=== PATIENT | female | born 1935 | race Caucasian/White ===

== ENCOUNTER 2016-05-03 07:31 | Inpatient (IN) | payer MEDICARE ==
--- NOTE | 2016-04-23 03:53 | HP ---
HISTORY AND PHYSICAL EXAM: DATE OF ADMISSION: 05/03/16 CHIEF COMPLAINT: Both legs are causing pain from the hips down. HISTORY OF PRESENT ILLNESS: This 81-year-old white female started experiencing bilateral leg pain dating back to mid February 2016. She has bilateral L4-5 lumbar radiculopathy which appears to be two separate processes. MRI, 03/29/16 , showed a disk fragment in the foramen on the right and a synovial cyst arising from the facet joint on the left, both of which compromised the descending nerve root. Her symptoms are consistent with MRI findings with radiculopathy starting in her hip area bilaterally and radiating down to her calves bilaterally. The patient finds that standing and walking are particularly painful. She is scheduled with Dr. Mc at [facility] for a decompressive lumbar laminectomy on 05/03/16. PAST MEDICAL HISTORY: The patient is under the care of Dr. Emery Francisco. She has a history of hypertension; diabetes, which is well controlled with metformin; restless legs syndrome; rheumatoid arthritis, treated with a combination of methotrexate and IV monthly infusions of Actemra. She also has GE reflux. PAST SURGICAL HISTORY: Includes right diskectomy for disk fragment, L4-5, in 2009; laparoscopic cholecystectomy; left knee replacement; left carpal tunnel release; tonsillectomy in childhood. CURRENT MEDICATIONS: 1. Diovan HCT 320/12.5 mg daily. 2. Terazosin 10 mg q.h.s. 3. Metformin ER 500 mg 2 tablets q.p.m. 4. Mirapex 0.25 mg 2 tablets q.p.m. 5. Pantoprazole 40 mg daily. 6. Oxybutynin 5 mg daily. 7. Ranitidine 300 mg 4 times a week. 8. Methotrexate 2.5 mg 4 tablets per week, which is currently on hold in preparation for her surgery. 9. Actemra infusion q. month, last infusion was April 04, on hold until after she heals from surgery. 10. Leucovorin 5 mg 8 hours after methotrexate, also on hold. 11. Aspirin 81 mg daily. 12. Centrum Silver daily. 13. Calcium 500 with D daily. 14. Vitamin C 1000 mg daily. 15. For pain control, she been using tramadol 50 mg once a day and Percocet 5/ 325 one tablet twice daily. ALLERGIES: NAPROSYN has caused a rash in the past. She does have sensitivity to gabapentin which caused agitation. BETA BLOCKERS caused fatigue. TARUN INHIBITORS have caused a cough. FAMILY HISTORY: Father - hypertension, CVA at age 52. Mother - Parkinson's diagnosed in her 60s, had dementia late in life, and at age 75. Maternal grandmother - breast cancer diagnosed at age 82, at age 93. Other family history is unremarkable. SOCIAL HISTORY: The patient lives in [facility]. She does live alone, but has 2 daughters and a son-in-law who live nearby that are very helpful. She has never used tobacco or alcohol. She continues to be fairly physically active despite her rheumatoid arthritis. REVIEW OF SYSTEMS: She wears bifocal glasses, bilateral hearing aids. Review of systems is negative to detailed questioning except that she does have some urinary frequency and does get up at night 2 times to urinate. Has some minimal incontinence. She denies any dyspnea, cough, chest pain, palpitations, or edema symptoms. PHYSICAL EXAMINATION GENERAL: This 81-year-old white female is alert, pleasant, and cooperative. VITAL SIGNS: Height 5 feet 2 inches, weight stable at 184, blood pressure supine 140/78, pulse 84. HEENT: Ears not examined. Hearing aids in place. Eyes: Pupils round, equal, react to light. Mouth: She has a full upper denture plate in place. No teeth on the bottom jaw. Tongue in the midline. Pharynx is clear. NECK: Fair range of motion. No adenopathy. No tenderness. Thyroid benign. BACK: Kyphosis present. No tenderness of the spine or CVA areas. LUNGS: Clear. HEART: Rhythm is regular. Apical pulse 84 beats per minute. EKG shows normal sinus rhythm with 2 PACs, within normal limits. ABDOMEN: Markedly obese. Active bowel sounds. Abdomen is soft, nontender. No obvious masses or organomegaly; however, this exam was difficult related to the patient's obese abdomen. NEUROVASCULAR: The patient is alert and oriented x3. She ambulates slowly with the assistance of a cane or walker. She does have minimal difficulty getting up on the exam table and needed assistance. Strengths of her upper and lower extremities are normal and symmetrical. The patient complains of bilateral leg pain with lumbar extension and side bending in either direction. SKIN: Warm, dry, pale, pink. No worrisome lesions noted. She does have an abrasion on her right elbow. No cellulitis. Skin of her lower leg was intact. No cyanosis. No edema. IMPRESSION: The patient is medically stable and cleared for her upcoming decompressive lumbar lamine[place] with Dr. Mc [place] [facility] [place]. IDA PIERRE NP CC: Dr. Mc; Same-Day Preadmission Testing at the Hospital * [id number]/[facility] #: [id number] [facility]
[~2016-05-03 07:31] MED LIST: Buffered Lidocaine 1% SYR 3ML* 3 ML/SYR SYRINGE INTRADERM ONE; Sodium Citrate/Citric Acid* 15 ML UDC PO ONE
[2016-05-03] MEDS ORDERED: ceFAZolin 2 GM PREMIX (*) 2 GM/50 ML BAG IVPB ONE (08:03)
[2016-05-03] MEDS ORDERED: Sodium Citrate/Citric Acid* 15 ML UDC ONE (08:03)
[2016-05-03] MEDS ORDERED: Bacitracin IV* 50,000 UNITS INJ ONE (09:24)
[2016-05-03] MEDS ORDERED: Lidocain 1% EPI 1:100,000 * 30 ML MDV ONE (09:24)
[2016-05-03] MEDS ORDERED: Thrombin 5,000 UNITS* 1 APPLIC KIT - topical use - TOPICAL ONE (09:24)
[2016-05-03] MEDS ORDERED: Propofol* 10 MG/ML 20 ML BTL IV PUSH ONE ×2 (09:44→11:41)
[2016-05-03] MEDS ORDERED: Rocuronium* 10 MG/ML VIAL ONE ×2 (09:44→10:59)
[2016-05-03] MEDS ORDERED: Lidocaine 2% PF * 5 ML VIAL ONE (09:44)
[2016-05-03] MEDS ORDERED: fentaNYL* 50 MCG/ML 2 ML VIAL (100 MCG VIAL) ONE ×5 (09:46→13:18)
[2016-05-03] MEDS ORDERED: DiMENhydriNATE IV* 50 MG/ML VIAL IV PUSH PRN (10:42)
[2016-05-03] MEDS ORDERED: Midazolam* 1 MG/ML 2 ML VIAL (2 MG) ONE (10:59)
[2016-05-03] MEDS ORDERED: Glycopyrrolate IV* 0.2 MG/ML 1 ML VIAL ONE (11:24)
[2016-05-03] MEDS ORDERED: Neostigmine Methylsulfate* 2 MG/2 ML SYRINGE ONE (11:24)
[2016-05-03] MEDS ORDERED: Ondansetron INJ* 2 MG/ML VIAL IV PRN (11:46)
[2016-05-03] MEDS ORDERED: Acetaminophen TAB* 325 MG PO PRN (11:46)
[2016-05-03] MEDS ORDERED: Famotidine TAB* 20 MG PO PRN (12:00)
[2016-05-03] MEDS: fentaNYL* 50 MCG/ML 2 ML VIAL (100 MCG VIAL) IV PRN ×5 (12:24→13:19)
--- NOTE | 2016-05-03 13:04 | RAD ---
Indication: Decompressive lumbar laminectomy. 2 lateral views of the lumbar spine taken in the operating room demonstrates localization of the L5 vertebra. IMPRESSION: Localization of the L5 vertebra.
[2016-05-03] MEDS: Morphine INJ* 4 MG/ML 1 ML CARPUJECT IV PRN ×3 (14:07→23:27)
[2016-05-03] MEDS: HYDROcodone/ACETAMIN 5-325 MG* 1 TAB PO PRN ×2 (15:57→22:13)
[2016-05-03] MEDS: Insulin LISPRO* 1 UNITS UNIT SUBCUT SCH ×2 (17:55→21:51)
[2016-05-03] MEDS: Terazosin CAP* 5 MG PO SCH (20:29)
[2016-05-03] MEDS ORDERED: Pramipexole TAB* 0.5 MG PO SCH (21:00)
[2016-05-04] MEDS: HYDROcodone/ACETAMIN 5-325 MG* 1 TAB PO PRN ×5 (03:47→20:30)
--- NOTE | 2016-05-04 07:44 | PN ---
Progress Note - Progress Note SOAP: Subjective: []POD # 1 C/O incisional pain Mcdowell in place Has not ambulated Objective: []Neuro intact Moderate wound drainage Assessment: []Stable post op Plan: []D/C mcdowell Increase activity
[2016-05-04] MEDS: Valsartan TAB* 160 MG PO SCH (08:08)
[2016-05-04] MEDS: Aspirin EC Low Dose* 81 MG TAB.EC PO SCH (08:08)
[2016-05-04] MEDS: Omeprazole CAP* 20 MG PO SCH (08:08)
[2016-05-04] MEDS: Hydrochlorothiazide TAB* 25 MG PO SCH (08:09)
[2016-05-04] MEDS: Oxybutynin TAB* 5 MG PO SCH (08:09)
[2016-05-04] MEDS: metFORMIN* 500 MG TAB PO SCH ×2 (08:15→20:31)
[2016-05-04] MEDS: Insulin LISPRO* 1 UNITS UNIT SUBCUT SCH ×4 (09:34→20:47)
[2016-05-04] MEDS ORDERED: Insulin LISPRO* 1 UNITS UNIT SUBCUT ONE (14:18)
[2016-05-04] MEDS: Terazosin CAP* 5 MG PO SCH (20:32)
[2016-05-04] MEDS: Pramipexole TAB* 0.5 MG PO SCH (20:45)
[2016-05-04] MEDS: Magnesium Hydroxide LIQ* 30 ML UDC PO PRN (20:46)
[2016-05-04] MEDS ORDERED: Pramipexole TAB* 0.125 MG PO SCH (21:00)
[2016-05-04] MEDS: Morphine INJ* 4 MG/ML 1 ML CARPUJECT IV PRN (22:48)
[2016-05-05] MEDS: HYDROcodone/ACETAMIN 5-325 MG* 1 TAB PO PRN ×3 (01:35→14:42)
[2016-05-05] MEDS: metFORMIN* 500 MG TAB PO SCH ×2 (08:22→21:54)
[2016-05-05] MEDS: Oxybutynin TAB* 5 MG PO SCH (08:23)
[2016-05-05] MEDS: Hydrochlorothiazide TAB* 25 MG PO SCH (08:23)
[2016-05-05] MEDS: Valsartan TAB* 160 MG PO SCH (08:23)
[2016-05-05] MEDS: Omeprazole CAP* 20 MG PO SCH (08:23)
[2016-05-05] MEDS: Aspirin EC Low Dose* 81 MG TAB.EC PO SCH (08:23)
[2016-05-05] MEDS: Insulin LISPRO* 1 UNITS UNIT SUBCUT SCH ×4 (08:46→21:53)
--- NOTE | 2016-05-05 08:53 | PN ---
Progress Note - Progress Note SOAP: Subjective: []Up in chair Still has marked incisional pain Moderate drain output Objective: []Motor normal Drain output 170 Assessment: []Stable Plan: []Still needs drain Will continue to monitor drain output
[2016-05-05] MEDS: Magnesium Hydroxide LIQ* 30 ML UDC PO PRN (14:42)
[2016-05-05] MEDS: Terazosin CAP* 5 MG PO SCH (21:54)
[2016-05-05] MEDS: Pramipexole TAB* 0.5 MG PO SCH (21:55)
[2016-05-06] MEDS: HYDROcodone/ACETAMIN 5-325 MG* 1 TAB PO PRN ×4 (01:57→18:18)
[2016-05-06] MEDS: Insulin LISPRO* 1 UNITS UNIT SUBCUT SCH ×4 (09:11→21:03)
[2016-05-06] MEDS: Hydrochlorothiazide TAB* 25 MG PO SCH (09:12)
[2016-05-06] MEDS: metFORMIN* 500 MG TAB PO SCH ×2 (09:12→21:03)
[2016-05-06] MEDS: Aspirin EC Low Dose* 81 MG TAB.EC PO SCH (09:12)
[2016-05-06] MEDS: Valsartan TAB* 160 MG PO SCH (09:12)
[2016-05-06] MEDS: Magnesium Hydroxide LIQ* 30 ML UDC PO PRN (09:12)
[2016-05-06] MEDS: Omeprazole CAP* 20 MG PO SCH (09:12)
[2016-05-06] MEDS: Oxybutynin TAB* 5 MG PO SCH (09:12)
[2016-05-06] MEDS ORDERED: Docusate CAP* 100 MG PO PRN (10:03)
[2016-05-06] MEDS ORDERED: Bisacodyl SUPP* 10 MG SUPP PR ONE (10:04)
[2016-05-06] MEDS: Terazosin CAP* 5 MG PO SCH (21:02)
[2016-05-06] MEDS: Pramipexole TAB* 0.5 MG PO SCH (21:03)
[2016-05-07] MEDS: HYDROcodone/ACETAMIN 5-325 MG* 1 TAB PO PRN ×4 (00:05→15:12)
--- NOTE | 2016-05-07 07:59 | PN ---
Progress Note - Progress Note SOAP: Subjective: [This is an 81 year old female s/p decompressive lumbar laminectomy L2-3, L3-4, L4-5 and L5-S1, POD#4. She continues to complain of some incisional back pain. She is ambulating occasionally and reports being slightly unsteady. She uses a walker. She is eating and drinking without difficulty. Denies headache, nausea, vomiting and lower extremity pain. ] Objective: [ Vital Signs: Temp Pulse Resp BP Pulse Ox 98.4 F 81 16 123/55 97 05/07/16 07:32 05/07/16 07:32 05/07/16 07:32 05/07/16 07:32 05/07/16 07:32 General: Alert and oriented. No distress. Neuro: Motor and sensory intact. Incision: Intact with marilin. Ecchymosis wrapping around left side of low back. Extremities: Full ROM. ] Assessment: [Satisfactory post-op. ] Plan: [1. Discharge home today. 2. Discharge instructions including wound care and activity level were discussed with the patient ]
--- NOTE | 2016-05-07 09:32 | OP ---
DATE OF OPERATION: 05/03/16 - ROOM #336 DATE OF : 31 PRIMARY SURGEON: Yossi Mc MD. LIFE INSURANCE SALESPERSON: NAOMI Gann. ANESTHESIOLOGIST: Reggie Padilla DO ANESTHESIA: General. PRE-OP DIAGNOSIS: Lumbar spinal stenosis at L2-L3, L3-L4, L4-L5, and L5-S1. POST-OP DIAGNOSIS: Lumbar spinal stenosis at L2-L3, L3-L4, L4-L5, and L5-S1. OPERATIVE PROCEDURE: Decompressive lumbar laminectomy at L2-L3, L3-L4, L4-L5, L5- S1. DESCRIPTION OF OPERATION: After satisfactory general anesthesia was obtained, the patient was placed on the operating table in a prone position with the chest supported on the Dangelo frame and the back slightly flexed. The lumbar region was then clipped, prepped, and draped in a sterile manner for a lumbar laminectomy and a skin incision outlined from L2 to the sacrum. This incision was infiltrated with 1% Xylocaine with epinephrine, after which it was turned down sharply to the level of the lumbar fascia. The fascia was divided along the spinous processes from L2 to the sacrum and the paraspinal musculature was stripped away from these posterior elements using the periosteal elevator and monopolar cautery. The decompression was began at the L5-S1 level by removing the L5 spinous process with a combination of the Ricky supply crib attendant and Leksell rongeur. The inferior aspect of L5 was then thinned out and a decompression carried superiorly until the attachment of the ligamentum flavum was taken down. Ligamentum flavum was then removed along with thickened facet complex, until both S1 nerve roots were notably free in their course. Attention was then directed to the L4-5 level where similar decompression was carried out. The pathology at this level was somewhat more pronounced with even greater thickening of the ligament and more hypertrophy of the facet complex. At the L4- L5 level, the decompression was carried inferiorly until both L5 nerve roots were noted to be free in their course. There was noted to be scar tissue at L4- 5 from a previous surgery. The L3-4 level was then decompressed by removing the spinal processes of L3 and L4. The inferior aspect of L3 was thinned out and a decompression carried superiorly until the attachment of the ligamentum flavum was taken down. Ligamentum flavum was then removed as well as thickened hypertrophy facet tissue. This was carried inferiorly until both L4 nerve roots were noted to be free in their course. At the L2-3 level, the spinous process of L2 was removed and a decompression carried out until both L3 nerve roots were noted to be free in their course. Hemostasis was obtained with temporary Gelfoam at each level. After assuring adequate hemostasis, Gelfoam was placed into the laminectomy defects. A drain was placed in the epidural space and tunneled out toward the left side. The fascia was then reapproximated with 0 Vicryl suture. The subcutaneous tissue was closed with 3- 0 Vicryl suture and the skin closed with skin clips. The estimated blood loss was 100 cc and final sponge, padding, and needle counts were correct. The patient was taken to the recovery room, extubated, and in stable condition. [id number]/[facility] #: [id number] MTDRolo
[2016-05-07] MEDS: Valsartan TAB* 160 MG PO SCH (09:41)
[2016-05-07] MEDS: Aspirin EC Low Dose* 81 MG TAB.EC PO SCH (09:42)
[2016-05-07] MEDS: Omeprazole CAP* 20 MG PO SCH (09:42)
[2016-05-07] MEDS: Hydrochlorothiazide TAB* 25 MG PO SCH (09:43)
[2016-05-07] MEDS: metFORMIN* 500 MG TAB PO SCH (09:44)
[2016-05-07] MEDS: Oxybutynin TAB* 5 MG PO SCH (09:44)
[2016-05-07] MEDS: Insulin LISPRO* 1 UNITS UNIT SUBCUT SCH ×2 (09:45→12:34)
[2016-05-07 16:19] VITALS: BP 118/56
--- NOTE | 2016-05-18 02:43 | DS ---
DISCHARGE SUMMARY: DATE OF ADMISSION: 05/03/16 DATE OF DISCHARGE: 05/07/16 DISCHARGE DIAGNOSES: 1. Lumbar spinal stenosis. 2. Hypertension. 3. Rheumatoid arthritis. HOSPITAL COURSE: This 81-year-old female was seen in office with signs and symptoms of a lumbar spinal stenosis for the previous several years. She has failed to improve over these several years with conservative treatment. In 2009 , she underwent lumbar diskectomy at L4-5 on the right with Dr. Faust. She experienced good improvement in symptoms although after sometime, she began experiencing symptoms related to the spinal stenosis. She was admitted at this time for elective surgical intervention. On the day of admission, she was taken to surgery where under general anesthesia, a decompressive lumbar laminectomy at L2-3, L3-4, L4-5 and L5-S1 operation was carried out. Postoperatively, she was feeling well. Pain was initially controlled with IV and p.o. pain medication. As postoperative days progressed, she was transitioned to only p.o. pain medications and continued to have adequate pain control. She is ambulating with assistance. She is eating, drinking and voiding without difficulty. On the 4th postoperative day, she was discharged home to the care of her family. DISCHARGE INSTRUCTIONS: Including wound care and activity level were discussed with patient and provided. She will be seen in office in approximately 7 to 10 days for followup and staple removal. DISCHARGE MEDICATIONS: Okarche 5/325 mg 2 tabs by mouth every 4 hours as needed for pain. NAOMI ROLLINS [id number]/[facility] #: [id number] ALAYNA
== END 2016-05-07 16:28 | disposition home or self-care (01) | DRG 517 ==
LOC: OR 07:31 → SSU 07:37 → OBSVTOIN 05-04 07:37
PROVIDERS: ADMIT Neurological Surgery; ATTEND Neurological Surgery
PROC: 01NB0ZZ Release Lumbar Nerve, Open Approach (ICD-10-PCS; principal; 2016-05-03 09:00)
DX: M48.06 Spinal stenosis, lumbar region (principal); E11.9 Type 2 diabetes mellitus without complications; M06.9 Rheumatoid arthritis, unspecified; I10 Essential (primary) hypertension; M48.07 Spinal stenosis, lumbosacral region; M54.16 Radiculopathy, lumbar region; G25.81 Restless legs syndrome; K21.9 Gastro-esophageal reflux disease without esophagitis; Z96.652 Presence of left artificial knee joint; Z79.84 Long term (current) use of oral hypoglycemic drugs; Z79.82 Long term (current) use of aspirin; Z79.891 Long term (current) use of opiate analgesic; Z79.899 Other long term (current) drug therapy; Z91.09 Other allergy status, other than to drugs and biological substances; Z82.49 Family history of ischemic heart disease and other diseases of the circulatory system; Z82.3 Family history of stroke; Z80.3 Family history of malignant neoplasm of breast
CPT/HCPCS: 72100; 94760; A9270-GY; G8978-GP-CK; G8978-GP-CL; G8978-GP-CN; G8979-GP-CI; G8979-GP-CK; G8980-GP-CK; J0690; J2250; J2270; J2704; J3010

== ENCOUNTER 2017-03-22 22:50 | Inpatient (IN) | payer MEDICARE ==
[2017-03-22 23:53] LABS: ABS Basophils 0 10^3/ul (0-0.2); ABS Eosinophils 0 10^3/ul (0-0.6); ABS Lymphocytes 1.1 10^3/ul (1.0-4.8); ABS Monocytes 0.8 10^3/ul (0-0.8); ABS Neutrophils 4.8 10^3/ul (1.5-7.7); ABS Nucleated RBC 0 10^3/ul; Eosinophil % 0.6 % (0-6); Hematocrit 34 % (35-47); Hemoglobin 11.9 g/dl (12.0-16.0); Lymphocyte % 16.3 % (25-47); Mean Corpuscular HGB Conc 35 g/dl (31-36); Mean Corpuscular Hemoglobin 34 pg (27-31); Mean Corpuscular Volume 96 fL (80-97); Mean Platelet Volume 7 um3 (7.4-10.4); Nucleated Red Blood Cells % 0.1; Platelet Count 276 10^3/ul (150-450); Red Blood Count 3.54 10^6/ul (4.0-5.4); Red Cell Distribution Width 14 % (10.5-15); White Blood Count 6.7 10^3/ul (3.5-10.8)
[2017-03-23 01:00] LABS: EGFR Non-African American 77.4 (>60)
[2017-03-23] MEDS ORDERED: Potassium Chloride LIQUID* 20 MEQ PACKET PO ONE (01:22)
[2017-03-23] MEDS ORDERED: NS 0.9% 1000 ML* 1,000 ML IV SCH (02:15)
[2017-03-23] MEDS ORDERED: Dextrose 50% Syringe 50 ML* 25 GM/50 ML SYRINGE IV PUSH PRN (02:26)
[2017-03-23] MEDS ORDERED: ceFAZolin 500 MG VIAL(*) 500 MG in NS 0.9% 50 ML* 50 ML IVPB SCH (03:30)
--- NOTE | 2017-03-23 04:25 | HP ---
CC: Dr. Wade * HISTORY AND PHYSICAL: DATE OF ADMISSION: 03/23/17 PRIMARY CARE PROVIDER: Dr. Wade CHIEF COMPLAINT: Increased confusion. HISTORY OF PRESENT ILLNESS: Ms. Avery is an 81-year-old female who has a history of type 2 diabetes, GERD, restless legs, hypertension, and rheumatoid arthritis, who presents to the emergency room with complaints of increased weakness. The patient's daughter provides the bulk of the history. The patient is very hard of hearing and confused, not really able to answer my questions. Of note, the patient saw Dr. Wade on 03/20/17 for complaints of abdominal pain. At that time, she was diagnosed with urinary tract infection and was started on Macrobid. Additionally at that appointment, there was concern that the patient's memory loss has became worse. On the day prior to this admission, the patient's daughter states that her mom was having a difficult time with even knowing how to use the phone or the remote control. She was reportedly unable to make any decisions. She was calling her daughter ' yimi' and additionally what sounds to be hallucinating. The patient appears to have been taking her medications inappropriately as daughter states that her pill box is a "mess." PAST MEDICAL HISTORY: 1. Hypertension. 2. Type 2 diabetes. 3. RLS. 4. RA. 5. Spinal stenosis. PAST SURGICAL HISTORY: 1. Decompressive lumbar laminectomy. 2. Tonsillectomy. 3. Diskectomy, L4-5. 4. Laparoscopic cholecystectomy. 5. Left total knee replacement. 6. Left carpal tunnel release. MEDICATIONS: 1. Metformin 500 mg p.o. daily. 2. Actemra IV monthly. 3. Aspirin 81 mg p.o. daily. 4. Centrum Silver 1 tab p.o. daily. 5. Calcium 1 chew p.o. twice daily. 6. Vitamin C 1000 mg p.o. daily. 7. Methotrexate 2.5 mg 4 tabs p.o. weekly. 8. Leucovorin 5 mg p.o. 1 day weekly after methotrexate dose. 9. Terazosin 10 mg p.o. daily. 10. Ranitidine 300 mg p.o. q.h.s. 11. Oxybutynin ER 5 mg p.o. daily. 12. Percocet 5/325 one tab p.o. q.6 hours p.r.n. pain. 13. Carbidopa/levodopa 25/100 three tabs p.o. daily. ALLERGIES: NAPROSYN, GABAPENTIN, BETA BLOCKERS, and TARUN INHIBITORS. FAMILY HISTORY: The patient's mom had Parkinson and dementia. Dad had CVA. SOCIAL HISTORY: The patient is a nonsmoker. She does not drink. Her daughter is her healthcare proxy. The patient is . She was a homemaker. She had 4 children. REVIEW OF SYSTEMS: Unobtainable as the patient is too confused. PHYSICAL EXAMINATION GENERAL: The patient is a well-developed, elderly female, lying in the stretcher, sleeping, awakens to voice, and is in no acute distress. VITAL SIGNS: Blood pressure 154/65, pulse 88, respirations 16, temp 97.9, O2 sat 99% on room air. HEENT: Pupils are approximately 1 to 2 mm. Extraocular muscles intact. Oropharynx is clear. Oral mucosa is slightly dry. The patient wears upper dentures. There is no submandibular cervical or supraclavicular adenopathy. Thyroid is not enlarged. No thyroid nodules noted. CARDIAC: Normal S1, S2. Regular rate and rhythm. I do not appreciate any murmurs. There is trace ankle edema bilaterally. ABDOMEN: Bowel sounds are present. Abdomen is soft, nontender, and nondistended. MUSCULOSKELETAL: There is no cyanosis or clubbing of the digits. There is full active range of motion of all 4 extremities. SKIN: Warm and dry. There are no rashes. NEUROLOGIC: Cranial nerves II through XII are grossly intact. Sensation is intact to light touch throughout. Strength is 5/5 and symmetric to both upper and lower extremities bilaterally. PSYCH: The patient is alert. She is confused. DIAGNOSTIC STUDIES/LAB DATA: WBC 6.7, hemoglobin 11.9, hematocrit 34, platelets 276. Sodium 120, potassium 3.3, chloride 83, CO2 24, BUN 11, creatinine 0.72, glucose 133. Calcium 9.8. Bilirubin 1.0, AST 28, ALT 30, alk phos 45. Albumin 4.5. TSH 1.7. Chest x-ray to my interpretation appears clear. ASSESSMENT AND PLAN: Ms. Avery is an 81-year-old female who has a history of possibly mildly cognitive impairment though lives alone ordinarily, type 2 diabetes, rheumatoid arthritis and restless legs, who presents to the emergency room with complaints of increased confusion and was found to be hyponatremic. 1. Confusion. The etiology of this is likely multifactorial from hyponatremia and likely the urinary tract infection that was diagnosed on 03/20/17. Treatment will be initiated for both of these conditions and will monitor for improvement of her mental status. We will also obtain a CT of the brain as her confusion is dramatically worse than usual. 2. Hyponatremia. The etiology of the hyponatremia is not clear. On 03/20/17, the patient had blood work that revealed her sodium was low at 120. In November of 2016, her sodium was slightly low at 131. In reviewing her medications, none of these stand out as the cause of the hyponatremia. We will send a urine sodium and urine osm. For now, we will start normal saline at 100 mL per hour. Repeat BMP will be obtained later this morning. 3. Urinary tract infection. The patient grew toussaint-sensitive E. coli. The patient was started on nitrofurantoin. I will change the patient from nitrofurantoin to cefazolin 500 mg IV q.6 hours. A repeat urinalysis has been sent from the emergency room. 4. Type 2 diabetes. The patient will be maintained on her usual dose of metformin. Glucoses will be ordered a.c. and h.s. with lispro sliding scale for coverage. 5. Rheumatoid arthritis. The patient's methotrexate and leucovorin will be held for now. 6. Restless legs. We will continue carbidopa/levodopa. 7. Chronic back pain. Continue p.r.n. Clifton. 8. DVT prophylaxis. According to the Adult Thrombosis Prophylaxis Risk Factor Assessment Guide, the patient has a total risk factor score of 4 making her high risk. She will be placed on heparin 5000 units subcutaneous q.8 hours. 5. Code status is DNR. TIME SPENT: 65 minutes were spent on admitting this patient. [id number]/[facility] #: [id number] ALAYNA
[2017-03-23] MEDS: ceFAZolin 500 MG VIAL(*) 500 MG in D5W 50 ML BAG* 50 ML IVPB SCH ×3 (04:36→20:29)
[2017-03-23] MEDS: Heparin VIAL(*) 5000 UNITS/ML VIAL (FIVE THOUSAND) SUBCUT SCH ×3 (06:14→22:10)
[2017-03-23] MEDS ORDERED: oxyCODONE/Acetamin 5/325 MG* TAB PO PRN (07:29)
[2017-03-23 08:09] LABS: Hematocrit 33 % (35-47); Hemoglobin 11.7 g/dl (12.0-16.0); Mean Corpuscular HGB Conc 36 g/dl (31-36); Mean Corpuscular Hemoglobin 34 pg (27-31); Mean Corpuscular Volume 96 fL (80-97); Mean Platelet Volume 7 um3 (7.4-10.4); Platelet Count 273 10^3/ul (150-450); Red Blood Count 3.42 10^6/ul (4.0-5.4); Red Cell Distribution Width 14 % (10.5-15); White Blood Count 5.3 10^3/ul (3.5-10.8)
[2017-03-23 08:20] LABS: EGFR Non-African American 82.6 (>60)
--- NOTE | 2017-03-23 08:40 | RAD ---
Indication: Hyponatremia. 2 views of the chest including dual energy PA views demonstrate no mediastinal shift. Heart is of normal size and configuration. Lung rachel demonstrate suggestion of infiltrate in the apices. Follow-up exam or PA and lateral view of the chest from the patient still is suggested. Findings are new since April 14, 2007. IMPRESSION: Possible biapical infiltrates. PA and lateral view of the chest is suggested.
[2017-03-23] MEDS ORDERED: Carbidopa/Levodop 25/100 MG TAB(*) PO SCH (09:00)
[2017-03-23] MEDS: Insulin LISPRO* 1 UNITS UNIT SUBCUT SCH ×4 (09:38→21:03)
[2017-03-23] MEDS: Aspirin EC Low Dose* 81 MG TAB.EC PO SCH (09:39)
[2017-03-23] MEDS: metFORMIN* 500 MG TAB PO SCH (09:39)
--- NOTE | 2017-03-23 09:51 | RAD ---
Indication: Confusion. CT of the brain was performed without IV contrast. Ventricular structures are midline. No midline shift is noted. There is central and cortical atrophy noted. Periventricular lucency consistent with chronic ischemic White matter change is noted. There is no evidence of intracranial mass or hemorrhage. No other high or low density lesions are identified. Mastoid air cells and paranasal sinuses are otherwise unremarkable. Findings are similar to that seen on prior MRI dated March 02, 2014. IMPRESSION: Chronic ischemic White matter change. No intracranial mass or hemorrhage is noted. Ventriculomegaly likely due to chronic central atrophy.
[2017-03-23] MEDS: Carbidopa/Levodop 25/100 MG TAB(*) PO SCH ×3 (11:19→20:29)
--- NOTE | 2017-03-23 13:44 | PN ---
Subjective Date of Service: 03/23/17 Interval History: Patient has no complaints today. Patient is persistently confused. Patient knows where she is and can read the date off the board, but has trouble answering other questions and repeats self often. Patient states she has occasional frontal headaches without migrainous features and denies aura or provoking factors. Patient denies and changes in her diet or medications recently. Patient states that she has help at home from her daughters daily. Patient denies N/V, F/C, abdominal pain, Diarrhea, constipation, lightheadedness , dysuria, or other pain. Family History: Unchanged from Admission Social History: Unchanged from Admission Past Medical History: Unchanged from Admission Objective Active Medications: Aspirin (Aspirin Ec Low Dose*) 81 mg PO QAM [facility] Last Admin: 03/23/17 09:39 Dose: 81 mg Carbidopa/Levodopa (Sinemet 25/100 Tab(*)) 1 tab PO TID [facility] Last Admin: 03/23/17 11:19 Dose: 1 tab Dextrose (D50w Syringe 50 Ml*) 12.5 gm IV PUSH .FOR FS < 60 - SS PRN PRN Reason: FS < 60 Famotidine (Pepcid Tab*) 40 mg PO BEDTIME [facility] PRN Reason: Protocol Heparin Sodium (Porcine) (Heparin Vial(*)) 5,000 units SUBCUT Q8HR [facility] Last Admin: 03/23/17 06:14 Dose: 5,000 units Sodium Chloride (Ns 0.9% 1000 Ml*) 1,000 mls @ 100 mls/hr IV PER RATE [facility] Last Admin: 03/23/17 04:21 Dose: 100 mls/hr Cefazolin Sodium 500 mg/ (Dextrose) 50 mls @ 200 mls/hr IVPB Q8H [facility] Last Admin: 03/23/17 11:21 Dose: 200 mls/hr Insulin Human Lispro (Humalog*) 0 units SUBCUT ACHS [facility] PRN Reason: Protocol Last Admin: 03/23/17 12:41 Dose: Not Given Metformin HCl (Glucophage*) 500 mg PO DAILY [facility] Last Admin: 03/23/17 09:39 Dose: 500 mg Oxycodone/Acetaminophen (Percocet 5/325 Tab*) 1 tab PO Q6H PRN PRN Reason: PAIN Terazosin HCl (Hytrin Cap*) 10 mg PO BEDTIME [facility] Vital Signs - 8 hr 03/23/17 03/23/17 08:22 10:09 Temperature 98.1 F Pulse Rate 73 Respiratory 18 16 Rate Blood Pressure 147/67 (mmHg) O2 Sat by Pulse 99 Oximetry Oxygen Devices in Use Now: None Appearance: Patient is an 81yo female who appears stated age and is sitting in the bed in NAD. Eyes: No Scleral Icterus, PERRLA Ears/Nose/Mouth/Throat: NL Teeth, Lips, Gums, Clear Oropharnyx, Mucous Membranes Moist Neck: NL Appearance and Movements; NL JVP, Trachea Midline Respiratory: Symmetrical Chest Expansion and Respiratory Effort, Clear to Auscultation Cardiovascular: NL Sounds; No Murmurs; No JVD, RRR Abdominal: NL Sounds; No Tenderness; No Distention, No Hepatosplenomegaly Lymphatic: No Cervical Adenopathy Extremities: - - 1+ pitting edema in B/L LE. Skin: No Rash or Ulcers, No Nodules or Sclerosis Neurological: Alert and Oriented x 3, NL Sensation, NL Muscle Strength and Tone , - - CN II-XII intact. Result Diagrams: 03/23/17 07:53 03/23/17 07:53 Assess/Plan/Problems-Billing Assessment: Patient is an 81yo female with a PMH significant for HTN, DMII, LBP, and RA who presents with increasing confusion and inability to take care of herself at home who has hyponatremia and a UTI and is being treated. - Patient Problems (1) Hyponatremia Current Visit: Yes Status: Acute Code(s): E87.1 - HYPO-OSMOLALITY AND HYPONATREMIA SNOMED Code(s): 13199404 Comment: Likely cause of patient's confusion. Patient had a sodium of 120 on admission with no clear cause. Urine sodium 111. Likely SIADH. Patient is confused as to what medications she has been taking and may have taken too many opiates which may cause SIADH. Will give NS and monitor. (2) Urinary tract infection Current Visit: Yes Status: Acute Comment: Patient was previously diagnosed with UTI and treated with Macrobid. Grew pansensitive E. Coli. Repeat urine culture and UA pending. Being treated with Cefazolin IV. (3) HTN (hypertension) Current Visit: Yes Status: Acute Code(s): I10 - ESSENTIAL (PRIMARY) HYPERTENSION SNOMED Code(s): 51342987 (4) Rheumatoid arthritis Current Visit: Yes Status: Acute Code(s): M06.9 - RHEUMATOID ARTHRITIS, UNSPECIFIED SNOMED Code(s): 07262492 Comment: No signs of disease activity. Hold Methotrexate and Leucovorin. Patient gets Actempra Monthly. (5) Diabetes Current Visit: Yes Status: Acute Code(s): E11.9 - TYPE 2 DIABETES MELLITUS WITHOUT COMPLICATIONS SNOMED Code(s): 94039260 Comment: Well controlled on Metformin and Lispro SSI. (6) RLS (restless legs syndrome) Current Visit: Yes Status: Acute Comment: Continue Sinemet. (7) Lumbar spinal stenosis Current Visit: No Status: Acute Code(s): M48.06 - SPINAL STENOSIS, LUMBAR REGION * DO NOT USE * SNOMED Code(s): 74095989 Comment: Patient has chronic pain controlled with Percocet. Patient previously requested to have this changed from PCP. Will hold for now due to probable SIADH and reintroduce a different agent as needed. (8) DNR (do not resuscitate) Current Visit: Yes Status: Acute (9) DVT prophylaxis Current Visit: Yes Status: Acute Code(s): JCM6462 - SNOMED Code(s): 124064530 Comment: Heparin SubQ Status and Disposition: Patient is admitted inpatient. Discharge when medically stable.
[2017-03-23] MEDS: Terazosin CAP* 5 MG PO SCH (20:29)
[2017-03-23] MEDS: Famotidine TAB* 20 MG PO SCH (20:29)
[2017-03-23 21:07] LABS: Urine Appearance Cloudy; Urine Blood 1+ (Negative); Urine Color Yellow; Urine Ketones Trace (Negative); Urine Protein Negative (Negative); Urine Specific Gravity 1.019 (1.010-1.030); Urine Urobilinogen Negative (Negative)
[2017-03-24] MEDS: ceFAZolin 500 MG VIAL(*) 500 MG in D5W 50 ML BAG* 50 ML IVPB SCH ×3 (03:36→19:47)
[2017-03-24] MEDS: Heparin VIAL(*) 5000 UNITS/ML VIAL (FIVE THOUSAND) SUBCUT SCH ×3 (05:31→21:06)
[2017-03-24 07:18] LABS: ABS Basophils 0 10^3/ul (0-0.2); ABS Eosinophils 0.1 10^3/ul (0-0.6); ABS Lymphocytes 1.4 10^3/ul (1.0-4.8); ABS Monocytes 0.5 10^3/ul (0-0.8); ABS Neutrophils 2.6 10^3/ul (1.5-7.7); ABS Nucleated RBC 0 10^3/ul; Eosinophil % 2.3 % (0-6); Hematocrit 33 % (35-47); Hemoglobin 11.7 g/dl (12.0-16.0); Lymphocyte % 30.2 % (25-47); Mean Corpuscular HGB Conc 36 g/dl (31-36); Mean Corpuscular Hemoglobin 34 pg (27-31); Mean Corpuscular Volume 96 fL (80-97); Mean Platelet Volume 7 um3 (7.4-10.4); Nucleated Red Blood Cells % 0; Platelet Count 267 10^3/ul (150-450); Red Blood Count 3.41 10^6/ul (4.0-5.4); Red Cell Distribution Width 14 % (10.5-15); White Blood Count 4.6 10^3/ul (3.5-10.8)
[2017-03-24 07:31] LABS: EGFR Non-African American 69.5 (>60)
[2017-03-24] MEDS: Insulin LISPRO* 1 UNITS UNIT SUBCUT SCH ×4 (07:46→21:04)
[2017-03-24] MEDS ORDERED: Magnesium Sulfate 2 GM IV* 2 GM/50 ML BAG IVPB ONE (08:15)
[2017-03-24] MEDS: metFORMIN* 500 MG TAB PO SCH (09:07)
[2017-03-24] MEDS: Aspirin EC Low Dose* 81 MG TAB.EC PO SCH (09:07)
[2017-03-24] MEDS: Carbidopa/Levodop 25/100 MG TAB(*) PO SCH ×3 (09:07→21:04)
--- NOTE | 2017-03-24 13:14 | PN ---
Subjective Date of Service: 03/24/17 Interval History: Patient states that she is doing very well this morning and has no complaints. Patient is A/Ox3 and shows no signs of confusion at this time. Patient denies dysuria, abdominal pain, diarrhea, F/C, N/V, CP, SOB, AMADOR, Dizziness, lightheadedness, or other pain. Talked with family and patient and they would be amenable to STR at discharge to help with her balance issues for which PT was previously suggested by her PCP. Family History: Unchanged from Admission Social History: Unchanged from Admission Past Medical History: Unchanged from Admission Objective Active Medications: Aspirin (Aspirin Ec Low Dose*) 81 mg PO QAM [facility] Last Admin: 03/24/17 09:07 Dose: 81 mg Carbidopa/Levodopa (Sinemet 25/100 Tab(*)) 1 tab PO TID [facility] Last Admin: 03/24/17 09:07 Dose: 1 tab Dextrose (D50w Syringe 50 Ml*) 12.5 gm IV PUSH .FOR FS < 60 - SS PRN PRN Reason: FS < 60 Famotidine (Pepcid Tab*) 40 mg PO BEDTIME [facility] PRN Reason: Protocol Last Admin: 03/23/17 20:29 Dose: 40 mg Heparin Sodium (Porcine) (Heparin Vial(*)) 5,000 units SUBCUT Q8HR [facility] Last Admin: 03/24/17 05:31 Dose: 5,000 units Cefazolin Sodium 500 mg/ (Dextrose) 50 mls @ 200 mls/hr IVPB Q8H [facility] Last Admin: 03/24/17 11:58 Dose: 200 mls/hr Insulin Human Lispro (Humalog*) 0 units SUBCUT ACHS [facility] PRN Reason: Protocol Last Admin: 03/24/17 11:47 Dose: Not Given Metformin HCl (Glucophage*) 500 mg PO DAILY [facility] Last Admin: 03/24/17 09:07 Dose: 500 mg Terazosin HCl (Hytrin Cap*) 10 mg PO BEDTIME [facility] Last Admin: 03/23/17 20:29 Dose: 10 mg Vital Signs - 8 hr 03/24/17 07:17 Temperature 97.9 F Pulse Rate 71 Respiratory 17 Rate Blood Pressure 121/61 (mmHg) O2 Sat by Pulse 99 Oximetry Oxygen Devices in Use Now: None Appearance: Patient is an 81yo female who appears stated age and is sitting in the bed in NAD. Eyes: No Scleral Icterus, PERRLA Ears/Nose/Mouth/Throat: NL Teeth, Lips, Gums, Clear Oropharnyx, Mucous Membranes Moist Neck: NL Appearance and Movements; NL JVP, Trachea Midline Respiratory: Symmetrical Chest Expansion and Respiratory Effort, Clear to Auscultation Cardiovascular: NL Sounds; No Murmurs; No JVD, RRR, - - 1+ Pitting edema in B/L LE. Pulses 2+ in B/L DP/PT/Radial areas. Abdominal: NL Sounds; No Tenderness; No Distention, No Hepatosplenomegaly Lymphatic: No Cervical Adenopathy Extremities: No Clubbing, Cyanosis Skin: No Rash or Ulcers, No Nodules or Sclerosis Neurological: Alert and Oriented x 3, NL Sensation, NL Muscle Strength and Tone , - - CN II-XII intact. Result Diagrams: 03/24/17 06:53 03/24/17 06:53 Assess/Plan/Problems-Billing Assessment: Patient is an 81yo female with a PMH significant for HTN, DMII, LBP, and RA who presents with increasing confusion and inability to take care of herself at home who has hyponatremia and a UTI and is being treated. - Patient Problems (1) Hyponatremia Current Visit: Yes Status: Acute Code(s): E87.1 - HYPO-OSMOLALITY AND HYPONATREMIA SNOMED Code(s): 85737689 Comment: Likely cause of patient's confusion. Patient had a sodium of 120 on admission with no clear cause. Now at 126 and patient's confusion seems to have completely resolved. Urine sodium 111. Likely SIADH. Patient is confused as to what medications she has been taking and may have taken too many opiates which may cause SIADH. Patient is amenable to try different agents for her back pain. Will trial baclofen. (2) Urinary tract infection Current Visit: Yes Status: Acute Comment: Patient was previously diagnosed with UTI and treated with Macrobid. Grew pansensitive E. Coli. Repeat urine culture and UA pending. Being treated with Cefazolin IV. (3) HTN (hypertension) Current Visit: Yes Status: Acute Code(s): I10 - ESSENTIAL (PRIMARY) HYPERTENSION SNOMED Code(s): 24105624 Comment: Normotensive, continue terazosin. (4) Rheumatoid arthritis Current Visit: Yes Status: Acute Code(s): M06.9 - RHEUMATOID ARTHRITIS, UNSPECIFIED SNOMED Code(s): 17268762 Comment: No signs of disease activity. Hold Methotrexate and Leucovorin. Patient gets Actempra Monthly. (5) Diabetes Current Visit: Yes Status: Acute Code(s): E11.9 - TYPE 2 DIABETES MELLITUS WITHOUT COMPLICATIONS SNOMED Code(s): 62947888 Comment: Well controlled on Metformin and Lispro SSI. (6) RLS (restless legs syndrome) Current Visit: Yes Status: Acute Comment: Continue Sinemet. (7) Lumbar spinal stenosis Current Visit: No Status: Acute Code(s): M48.06 - SPINAL STENOSIS, LUMBAR REGION * DO NOT USE * SNOMED Code(s): 77401645 Comment: Patient has chronic pain controlled with Percocet. Patient previously requested to have this changed from PCP. Will hold for now due to probable SIADH. Will trial baclofen. (8) Impaired ambulation Current Visit: Yes Status: Acute Code(s): R26.2 - DIFFICULTY IN WALKING, NOT ELSEWHERE CLASSIFIED SNOMED Code(s): 391757088 Comment: Patient is a 2 assist when working with PT and the nursing staff. Patient has had issues with balance for about a year per family. No neurological deficits on exam, MRI brain unremarkable. Would benefit from STR. Continue PT/OT in the hospital. (9) DNR (do not resuscitate) Current Visit: Yes Status: Acute (10) DVT prophylaxis Current Visit: Yes Status: Acute Code(s): MGD3279 - SNOMED Code(s): 363878561 Comment: Heparin SubQ Status and Disposition: Patient is admitted inpatient. Discharge when medically stable.
[2017-03-24] MEDS ORDERED: Polyethylene Glycol 3350* 17 GM PACKET PO PRN (14:02)
[2017-03-24] MEDS ORDERED: Docusate CAP* 100 MG PO PRN (14:02)
[2017-03-24] MEDS: Famotidine TAB* 20 MG PO SCH (21:04)
[2017-03-24] MEDS: Terazosin CAP* 5 MG PO SCH (21:04)
[2017-03-24] MEDS: Acetaminophen TAB* 325 MG PO PRN (22:07)
[2017-03-25] MEDS: ceFAZolin 500 MG VIAL(*) 500 MG in D5W 50 ML BAG* 50 ML IVPB SCH ×3 (04:09→21:15)
[2017-03-25] MEDS: Heparin VIAL(*) 5000 UNITS/ML VIAL (FIVE THOUSAND) SUBCUT SCH ×3 (06:21→21:17)
[2017-03-25 06:23] LABS: ABS Basophils 0 10^3/ul (0-0.2); ABS Eosinophils 0.1 10^3/ul (0-0.6); ABS Lymphocytes 1.3 10^3/ul (1.0-4.8); ABS Monocytes 0.5 10^3/ul (0-0.8); ABS Neutrophils 2.4 10^3/ul (1.5-7.7); ABS Nucleated RBC 0 10^3/ul; Hematocrit 32 % (35-47); Hemoglobin 11.2 g/dl (12.0-16.0); Lymphocyte % 30.1 % (25-47); Mean Corpuscular HGB Conc 35 g/dl (31-36); Mean Corpuscular Hemoglobin 34 pg (27-31); Mean Corpuscular Volume 98 fL (80-97); Mean Platelet Volume 7 um3 (7.4-10.4); Nucleated Red Blood Cells % 0; Platelet Count 248 10^3/ul (150-450); Red Blood Count 3.28 10^6/ul (4.0-5.4); Red Cell Distribution Width 14 % (10.5-15); White Blood Count 4.5 10^3/ul (3.5-10.8)
[2017-03-25 06:39] LABS: EGFR Non-African American 76.1 (>60)
[2017-03-25] MEDS: Insulin LISPRO* 1 UNITS UNIT SUBCUT SCH ×4 (08:01→21:17)
[2017-03-25] MEDS: Carbidopa/Levodop 25/100 MG TAB(*) PO SCH ×2 (08:57→14:11)
[2017-03-25] MEDS: metFORMIN* 500 MG TAB PO SCH (08:57)
[2017-03-25] MEDS: Aspirin EC Low Dose* 81 MG TAB.EC PO SCH (08:57)
[2017-03-25] MEDS: Acetaminophen TAB* 325 MG PO PRN (11:50)
[2017-03-25] MEDS: Famotidine TAB* 20 MG PO SCH (21:14)
[2017-03-25] MEDS: Pramipexole TAB* 0.5 MG PO SCH (21:15)
[2017-03-25] MEDS: Terazosin CAP* 5 MG PO SCH (21:15)
[2017-03-25] MEDS: Baclofen TAB* 10 MG PO PRN (21:15)
--- NOTE | 2017-03-25 23:41 | PN ---
Subjective Date of Service: 03/25/17 Interval History: Patient is fully alert and oriented again today. Patient complains only of poor sleep from her RLS. Patient and family briefed on clinical condition and still interested in rehab. Patient denies F/C, N/V, Abdominal pain, diarrhea, constipation, dysuria, or other pain. Family History: Unchanged from Admission Social History: Unchanged from Admission Past Medical History: Unchanged from Admission Objective Active Medications: Acetaminophen (Tylenol Tab*) 650 mg PO Q4H PRN PRN Reason: PAIN Last Admin: 03/25/17 11:50 Dose: 650 mg Aspirin (Aspirin Ec Low Dose*) 81 mg PO QAM [facility] Last Admin: 03/25/17 08:57 Dose: 81 mg Baclofen (Lioresal Tab*) 10 mg PO TID PRN PRN Reason: SPASMS Last Admin: 03/25/17 21:15 Dose: 10 mg Dextrose (D50w Syringe 50 Ml*) 12.5 gm IV PUSH .FOR FS < 60 - SS PRN PRN Reason: FS < 60 Docusate Sodium (Colace Cap*) 200 mg PO DAILY PRN PRN Reason: CONSTIPATION Last Admin: 03/25/17 11:50 Dose: 200 mg Famotidine (Pepcid Tab*) 40 mg PO BEDTIME [facility] PRN Reason: Protocol Last Admin: 03/25/17 21:14 Dose: 40 mg Heparin Sodium (Porcine) (Heparin Vial(*)) 5,000 units SUBCUT Q8HR [facility] Last Admin: 03/25/17 21:17 Dose: 5,000 units Cefazolin Sodium 500 mg/ (Dextrose) 50 mls @ 200 mls/hr IVPB Q8H [facility] Last Admin: 03/25/17 21:15 Dose: 200 mls/hr Insulin Human Lispro (Humalog*) 0 units SUBCUT ACHS [facility] PRN Reason: Protocol Last Admin: 03/25/17 21:17 Dose: 2 units Metformin HCl (Glucophage*) 500 mg PO DAILY [facility] Last Admin: 03/25/17 08:57 Dose: 500 mg Polyethylene Glycol/Electrolytes (Miralax*) 17 gm PO DAILY PRN PRN Reason: CONSTIPATION Last Admin: 03/25/17 11:54 Dose: 17 gm Pramipexole Dihydrochloride (Mirapex Tab*) 1.5 mg PO TID [facility] Last Admin: 03/25/17 21:15 Dose: 1.5 mg Terazosin HCl (Hytrin Cap*) 10 mg PO BEDTIME [facility] Last Admin: 03/25/17 21:15 Dose: 10 mg Vital Signs - 8 hr 03/25/17 03/25/17 19:22 20:00 Temperature 98.2 F Pulse Rate 85 Respiratory 16 18 Rate Blood Pressure 120/50 (mmHg) O2 Sat by Pulse 100 Oximetry Oxygen Devices in Use Now: None Appearance: Patient is an 81yo female who appears stated age and is sitting in the chair in [facility]. Eyes: No Scleral Icterus, PERRLA Ears/Nose/Mouth/Throat: NL Teeth, Lips, Gums, Clear Oropharnyx, Mucous Membranes Moist Neck: NL Appearance and Movements; NL JVP, Trachea Midline Respiratory: Symmetrical Chest Expansion and Respiratory Effort, Clear to Auscultation Cardiovascular: NL Sounds; No Murmurs; No JVD, RRR, - - 1+ pitting edema in B/L LE. Abdominal: NL Sounds; No Tenderness; No Distention, No Hepatosplenomegaly Lymphatic: No Cervical Adenopathy Extremities: No Edema, No Clubbing, Cyanosis Skin: No Rash or Ulcers, No Nodules or Sclerosis Neurological: Alert and Oriented x 3, NL Sensation, NL Muscle Strength and Tone Result Diagrams: 03/25/17 06:07 03/25/17 06:07 Assess/Plan/Problems-Billing Assessment: Patient is an 81yo female with a PMH significant for HTN, DMII, LBP, and RA who presents with increasing confusion and inability to take care of herself at home who has hyponatremia and a UTI and is being treated. - Patient Problems (1) Hyponatremia Current Visit: Yes Status: Acute Code(s): E87.1 - HYPO-OSMOLALITY AND HYPONATREMIA SNOMED Code(s): 60945189 Comment: Likely cause of patient's confusion. Patient had a sodium of 120 on admission with no clear cause. Stayed at 126 and patient's confusion seems to have completely resolved. Urine sodium 111. Likely SIADH. Patient is confused as to what medications she has been taking and may have taken too many opiates which may cause SIADH. Patient is amenable to try different agents for her back pain. Will trial baclofen. Will start salt tablets tomorrow hopefully for a short period if patient does not improve again. (2) Urinary tract infection Current Visit: Yes Status: Acute Comment: Patient was previously diagnosed with UTI and treated with Macrobid. Grew pansensitive E. Coli. Repeat urine culture and UA pending. Being treated with Cefazolin IV. Will switch to Keflex at D/C. (3) HTN (hypertension) Current Visit: Yes Status: Acute Code(s): I10 - ESSENTIAL (PRIMARY) HYPERTENSION SNOMED Code(s): 13785329 Comment: Normotensive, continue terazosin. (4) Rheumatoid arthritis Current Visit: Yes Status: Acute Code(s): M06.9 - RHEUMATOID ARTHRITIS, UNSPECIFIED SNOMED Code(s): 11832478 Comment: No signs of disease activity. Hold Methotrexate and Leucovorin. Patient gets Actempra Monthly. (5) Diabetes Current Visit: Yes Status: Acute Code(s): E11.9 - TYPE 2 DIABETES MELLITUS WITHOUT COMPLICATIONS SNOMED Code(s): 43937888 Comment: Well controlled on Metformin and Lispro SSI. (6) RLS (restless legs syndrome) Current Visit: Yes Status: Acute Comment: Uncontrolled, Change Sinemet to Mirapex. (7) Lumbar spinal stenosis Current Visit: No Status: Acute Code(s): M48.06 - SPINAL STENOSIS, LUMBAR REGION * DO NOT USE * SNOMED Code(s): 56563540 Comment: Patient has chronic pain controlled with Percocet. Patient previously requested to have this changed from PCP. Will hold for now due to probable SIADH. Will trial baclofen. (8) Impaired ambulation Current Visit: Yes Status: Acute Code(s): R26.2 - DIFFICULTY IN WALKING, NOT ELSEWHERE CLASSIFIED SNOMED Code(s): 308264196 Comment: Patient is a 2 assist when working with PT and the nursing staff. Patient has had issues with balance for about a year per family. No neurological deficits on exam, MRI brain unremarkable. Would benefit from STR. Continue PT/OT in the hospital. (9) DNR (do not resuscitate) Current Visit: Yes Status: Acute (10) DVT prophylaxis Current Visit: Yes Status: Acute Code(s): OAZ9558 - SNOMED Code(s): 064285536 Comment: Heparin SubQ Status and Disposition: Patient is admitted inpatient. Hopeful discharge to [place] tomorrow.
[2017-03-26] MEDS: ceFAZolin 500 MG VIAL(*) 500 MG in D5W 50 ML BAG* 50 ML IVPB SCH ×3 (04:31→12:58)
[2017-03-26] MEDS: Heparin VIAL(*) 5000 UNITS/ML VIAL (FIVE THOUSAND) SUBCUT SCH ×4 (04:31→22:07)
[2017-03-26] MEDS: Insulin LISPRO* 1 UNITS UNIT SUBCUT SCH ×4 (10:21→20:28)
[2017-03-26] MEDS: metFORMIN* 500 MG TAB PO SCH (10:21)
[2017-03-26] MEDS: Pramipexole TAB* 0.5 MG PO SCH ×3 (10:21→20:29)
[2017-03-26] MEDS: Aspirin EC Low Dose* 81 MG TAB.EC PO SCH (10:21)
[2017-03-26] MEDS: Acetaminophen TAB* 325 MG PO PRN ×2 (10:26→16:32)
[2017-03-26 11:22] LABS: ABS Basophils 0 10^3/ul (0-0.2); ABS Eosinophils 0 10^3/ul (0-0.6); ABS Lymphocytes 0.7 10^3/ul (1.0-4.8); ABS Monocytes 0.4 10^3/ul (0-0.8); ABS Nucleated RBC 0 10^3/ul; Eosinophil % 0.5 % (0-6); Hematocrit 33 % (35-47); Hemoglobin 11.6 g/dl (12.0-16.0); Lymphocyte % 13.3 % (25-47); Mean Corpuscular HGB Conc 35 g/dl (31-36); Mean Corpuscular Hemoglobin 34 pg (27-31); Mean Corpuscular Volume 97 fL (80-97); Mean Platelet Volume 7 um3 (7.4-10.4); Nucleated Red Blood Cells % 0; Platelet Count 272 10^3/ul (150-450); Red Blood Count 3.42 10^6/ul (4.0-5.4); Red Cell Distribution Width 14 % (10.5-15); White Blood Count 5.1 10^3/ul (3.5-10.8)
[2017-03-26 11:37] LABS: EGFR Non-African American 85.5 (>60)
--- NOTE | 2017-03-26 13:59 | DS ---
CC: Dr. Cassius Wade* DATE OF ADMISSION: 03/22/2017. DATE OF DISCHARGE: 03/26/2017. PRIMARY CARE PHYSICIAN: Dr. Cassius Wade. MY ATTENDING PHYSICIAN WHILE IN THE HOSPITAL: Dr. Bubba Coto* (dictated by NAOMI Lambert). PRIMARY DISCHARGE DIAGNOSES: Hyponatremia, weakness, deconditioning. SECONDARY DISCHARGE DIAGNOSES: Hypertension, type 2 diabetes, restless leg syndrome, rheumatoid arthritis, spinal stenosis. STUDIES DONE WHILE IN THE HOSPITAL: 1. Chest x-ray from 03/22/2017 shows possible biapical infiltrates. PA and lateral view of the chest is suggested. 2. Brain CT from 03/23/2017, read as: Chronic ischemic white matter change. No intracranial mass or hemorrhage. Ventriculomegaly likely due to chronic central atrophy. This was personally reviewed and did not show significant change or increase in the size of the ventricles from brain MRI from 2017. MEDICATIONS AT DISCHARGE: 1. Zantac 300 mg p.o. at bedtime. 2. Ditropan 5 mg p.o. q.a.m. 3. Terazosin 10 mg p.o. at bedtime. 4. Centrum Silver one tab p.o. daily. 5. Aspirin 81 mg p.o. daily. 6. Vitamin C 1,000 mg p.o. daily. 7. Leucovorin 5 mg p.o. weekly. 8. Methotrexate four tabs p.o. weekly. 9. Metformin 500 mg p.o. daily. 10. Actemra 400 mg infusion q.4 weeks. 11. Tylenol 650 mg p.o. q.4 hours. 12. Baclofen 10 mg p.o. t.i.d. as needed. 13. Docusate 200 mg p.o. daily. 14. Polyethylene Glycol 17 mg p.o. daily. 15. Mirapex 1.5 mg p.o. t.i.d. 16. Cephalexin 500 mg p.o. q.12 hours times 7. New medications at discharge: Tylenol, Baclofen, Docusate, MiraLax, Mirapex, Keflex. Medications discontinued at discharge: Percocet 5/325, Sinemet 25/100. HOSPITAL COURSE: This is a brief summary of the patient's presentation. For more details, please see the history and physical from Dr. Guadalupe Smith on . In brief, the patient is an 81-year-old female with past medical history significant for the above who presented to the emergency department with increased weakness and confusion. The patient's daughter states that she increasingly confused and unable to take care of herself. She was recently seen at Dr. Wade's office on 03/20/2017 with complaints of abdominal pain, diagnosed with urinary tract infection and started on Macrobid. The patient's memory loss which was mild at baseline has become worse. The patient has been unable to take her pills at home. She was also very confused, hallucinating and did not recognize her own daughter. The patient was found to have a sodium of 120 which is believe the etiology of her altered mental status. The patient also had a high urine sodium likely indicating SIADH of unknown cause, possibly medication related as the patient had been taking unknown doses of medications for an unknown period of time. The patient improved slightly on her first day in the hospital. Her sodium only increased from 120 to 121. The patient was started on fluid restriction of 1000 ml p.o. daily and given fluids which were stopped after the first day for concern that they were hampering patient's progression and SIADH. The patient did not appear dehydrated. The patient's sodium increased to 126 on her second day in the hospital which corresponded with a significant improvement in her mental status. The patient continued to tolerate her fluid restriction well; however, the patient had back pain. Percocet was the only medication on her list that may have been causing SIADH so that was discontinued and replaced with Baclofen which the patient was using with good effect for her back pain. While in the hospital, the patient was also constipated and started on a bowel regimen of Colace and MiraLax. The patient's sodium continued to improve until the day of discharge when it was 129. The patient was still slightly confused, but on the day of discharge appeared to be back to her baseline. She was otherwise very oriented and able to continue on a conversation. The patient was treated with Kefzol while in the hospital for four days with a plan of continuing her on Keflex when she is discharged from the hospital. The patient's blood sugars remained very well controlled on her Metformin. The patient had no other issues. The patient's Methotrexate and Leucovorin were held while in the hospital. The patient had no apparent flares in her rheumatoid arthritis disease activity. The patient performed very poorly initially with physical therapy, but improved over the course of her hospitalization, but remained significantly weak with issues with balance and it was decided that the patient should go to rehab at [facility]. The patient had been sleeping poorly due to restless leg syndrome and her Sinemet was changed to Mirapex as above which was originally intended by her primary care provider. PHYSICAL EXAMINATION ON THE DAY OF DISCHARGE: General: The patient is an 81- year-old female who appears stated age who is sitting comfortable in bed in no acute distress. Vital Signs at the time of discharge: Temperature 98.4, heart rate 85, respiratory rate 16, oxygen saturation 98 percent on room air, blood pressure 152/76. HEENT: Head normocephalic, atraumatic. Sclerae anicteric. No conjunctival injection. Nasal mucosa moist. Oral mucosa moist. No pharyngeal erythema, exudate or discharge. Neck: Supple, nontender, no lymphadenopathy, no carotid bruit auscultated. Cardiac: Regular rate and rhythm. No clicks, murmurs, gallops or rubs. Pulse 2+ in bilateral dorsalis pedis, posterior tibialis, and radial areas. There is 1+ pitting edema in the bilateral lower extremities which is unchanged from previous exam. Respiratory: Clear to auscultation bilaterally. No wheezes, rales or rhonchi. Abdomen: Soft, nontender, nondistended. Bowel sounds are present. Normoactive in all four quadrants. No hepatosplenomegaly. No abdominal bruits auscultated. Genitourinary: No suprapubic tenderness or CVA tenderness. Skin: Clean, dry, intact. No rash. Neuro: Alert and oriented times two. The patient did not know where she was today, but was easily reoriented and seemed embarrassed by her mistake. The patient blamed it on not getting very much sleep. Psychiatric : The patient is pleasant and cooperative. LABORATORY DATA ON THE DAY OF DISCHARGE: White blood cell count 5.1, red blood cell count 3.42, hemoglobin 11.6, hematocrit 33, platelet count 272; sodium 129 , potassium 3.6, chloride 95, carbon dioxide 28, anion gap 6, BUN 16, creatinine 0.66, glucose 161, calcium 9.5. DISCHARGE PLAN: The patient will be discharged to [facility] for rehab with the intention of her returning home. The patient's sodium is at 129 and she is currently asymptomatic of the confusion which she had when her sodium was 120. This is believed to be caused by SIADH from unknown source, but probable medication induced. The patient should have a repeat BMP in one week and should continue with a slightly more lax 1500 ml fluid restriction daily, which if the patient's sodium has returned to normal can be more further relaxed or abolished entirely. The patient should follow-up with her primary care provider within one week. The patient should continue taking Mirapex instead of Sinemet, but had limited response to this while in the hospital and an additional medication dose adjustment or change should be considered. The patient should return to the hospital with any alarming symptoms. DIET: The patient should have a heart healthy diet with fluid restriction as above. ACTIVITY: The patient should engage in activity as tolerated working with PT and OT to restore her functional status. Approximately 60 minutes were spent on this discharge, 30 of which were spent face- to-face with the patient obtaining history and physical and discussing treatment plan. NAOMI LAMBERT [id number]/[facility] #: [id number] ALAYNA
[2017-03-26] MEDS: Baclofen TAB* 10 MG PO PRN (16:34)
[2017-03-26] MEDS ORDERED: Ondansetron ODT TAB* 4 MG SL PRN (18:28)
[2017-03-26] MEDS: Cephalexin CAP* 500 MG PO SCH (20:29)
[2017-03-26] MEDS: Terazosin CAP* 5 MG PO SCH (20:29)
[2017-03-26] MEDS: Famotidine TAB* 20 MG PO SCH (20:29)
[2017-03-26] MEDS ORDERED: CMCS Melatonin (NF) 3 MG TAB PO SCH (21:00)
[2017-03-26] MEDS ORDERED: CMCS: Melatonin (NF) 3 MG TAB PO SCH (21:00)
[2017-03-27] MEDS: Heparin VIAL(*) 5000 UNITS/ML VIAL (FIVE THOUSAND) SUBCUT SCH (06:04)
[2017-03-27 08:59] LABS: ABS Basophils 0 10^3/ul (0-0.2); ABS Eosinophils 0 10^3/ul (0-0.6); ABS Monocytes 0.5 10^3/ul (0-0.8); ABS Neutrophils 4.5 10^3/ul (1.5-7.7); ABS Nucleated RBC 0 10^3/ul; Eosinophil % 0.5 % (0-6); Hematocrit 34 % (35-47); Hemoglobin 11.7 g/dl (12.0-16.0); Lymphocyte % 16.2 % (25-47); Mean Corpuscular HGB Conc 34 g/dl (31-36); Mean Corpuscular Hemoglobin 34 pg (27-31); Mean Corpuscular Volume 98 fL (80-97); Mean Platelet Volume 7 um3 (7.4-10.4); Nucleated Red Blood Cells % 0; Platelet Count 264 10^3/ul (150-450); Red Blood Count 3.49 10^6/ul (4.0-5.4); Red Cell Distribution Width 14 % (10.5-15); White Blood Count 6.1 10^3/ul (3.5-10.8)
[2017-03-27 09:14] LABS: EGFR Non-African American 93.7 (>60)
--- NOTE | 2017-03-27 09:39 | PN ---
Hospitalist Progress Note Date of Service: 03/27/17 Patient developed worsening delirium with hyperactivity and hallucinations in the afternoon of 03/26. Discharge delayed due to family's concern. Patient had 2 days of poor sleep at that point. Melatonin ordered for bedtime and patient slept well and was much improved on 03/27. Family agreeable to discharge this AM. [facility] melatonin [facility].
[2017-03-27 10:22] VITALS: BP 170/72
[2017-03-27] MEDS: Cephalexin CAP* 500 MG PO SCH (10:29)
[2017-03-27] MEDS: Pramipexole TAB* 0.5 MG PO SCH (10:29)
[2017-03-27] MEDS: metFORMIN* 500 MG TAB PO SCH (10:30)
[2017-03-27] MEDS: Aspirin EC Low Dose* 81 MG TAB.EC PO SCH (10:30)
[2017-03-27] MEDS ORDERED: Methotrexate TAB* 2.5 MG PO ONE ×2 (11:06)
--- NOTE | 2017-03-27 12:51 | DS ---
ADDENDUM TO DISCHARGE SUMMARY: DATE OF ADMISSION: 03/23/2017. DATE OF DISCHARGE: 03/27/2017. ATTENDING PROVIDER: Bubba Coto MD * (DICTATED BY NAOMI LAMBERT) HISTORY OF PRESENT ILLNESS: The patient developed worsening delirium with hallucinations and hyperactivity in the afternoon of 03/26/2017. Family was concerned. The patient had had two days of poor sleep at this point and complained of being very tired and had no other symptoms, no signs of stroke. This was believed to be hospital-induced hyperactive delirium and the patient was given Melatonin at bedtime on 03/26/2017. The patient slept well over night and this morning is alert and oriented times three and feels much better. Family is amenable to her being discharged to [facility] today. A prescription for Melatonin 3 mg nightly was sent to [facility]. NAOMI LAMBERT [id number]/[facility] #: [id number] MTDD
== END 2017-03-27 12:00 | DRG 644 ==
LOC: ED 22:50 → MED 03-23 02:09
PROVIDERS: ADMIT Hospitalist; ATTEND Internal Medicine
DX: E22.2 Syndrome of inappropriate secretion of antidiuretic hormone (principal); N39.0 Urinary tract infection, site not specified; E11.9 Type 2 diabetes mellitus without complications; M06.9 Rheumatoid arthritis, unspecified; G25.81 Restless legs syndrome; G31.84 Mild cognitive impairment of uncertain or unknown etiology; B96.20 Unspecified Escherichia coli [E. coli] as the cause of diseases classified elsewhere; I10 Essential (primary) hypertension; R26.2 Difficulty in walking, not elsewhere classified; M48.061 Spinal stenosis, lumbar region without neurogenic claudication; R53.1 Weakness; K21.9 Gastro-esophageal reflux disease without esophagitis; Z79.84 Long term (current) use of oral hypoglycemic drugs; Z79.82 Long term (current) use of aspirin; Z79.891 Long term (current) use of opiate analgesic; Z79.899 Other long term (current) drug therapy; Z88.8 Allergy status to other drugs, medicaments and biological substances; Z82.3 Family history of stroke
CPT/HCPCS: 36415; 70450; 71046; 74019; 80048; 80053; 81003; 81015; 82140; 83036; 83605; 83735; 83930; 83935; 84300; 84443; 85025; 85027; 87086; 99284; A9270-GY; J0690; J1644; J3475; J8610

== ENCOUNTER 2017-04-19 16:10 | Observation (INO) | payer MEDICARE ==
[2017-04-19 16:55] LABS: ABS Basophils 0 10^3/ul (0-0.2); ABS Eosinophils 0.1 10^3/ul (0-0.6); ABS Lymphocytes 0.9 10^3/ul (1.0-4.8); ABS Monocytes 0.6 10^3/ul (0-0.8); ABS Neutrophils 6.6 10^3/ul (1.5-7.7); ABS Nucleated RBC 0 10^3/ul; Eosinophil % 0.9 % (0-6); Hematocrit 34 % (35-47); Hemoglobin 11.6 g/dl (12.0-16.0); Mean Corpuscular HGB Conc 34 g/dl (31-36); Mean Corpuscular Hemoglobin 33 pg (27-31); Mean Corpuscular Volume 97 fL (80-97); Mean Platelet Volume 8 um3 (7.4-10.4); Nucleated Red Blood Cells % 0.1; Platelet Count 342 10^3/ul (150-450); Red Blood Count 3.51 10^6/ul (4.0-5.4); Red Cell Distribution Width 13 % (10.5-15); White Blood Count 8.3 10^3/ul (3.5-10.8)
[2017-04-19 17:14] LABS: EGFR Non-African American 81.1 (>60)
--- NOTE | 2017-04-19 17:44 | RAD ---
HISTORY: Altered mental status COMPARISONS: March 22, 2017 VIEWS: 1: frontal portable view of the chest at 5:15 PM FINDINGS: LINES AND TUBES: None. CARDIOMEDIASTINAL SILHOUETTE: The cardiomediastinal silhouette is normal for portable technique. PLEURA: The costophrenic angles are sharp. No pleural abnormalities are noted. LUNG PARENCHYMA: There is a mild diffuse reticular pattern with indistinct pulmonary vessels. ABDOMEN: The upper abdomen is clear. There is no subphrenic gas. BONES AND SOFT TISSUES: No bone or soft tissue abnormalities are noted. IMPRESSION: MILD PULMONARY INTERSTITIAL EDEMA
[2017-04-19 18:08] LABS: Urine Appearance Clear; Urine Blood Negative (Negative); Urine Color Yellow; Urine Ketones Trace (Negative); Urine Protein Negative (Negative); Urine Urobilinogen Negative (Negative)
--- NOTE | 2017-04-19 18:15 | RAD ---
HISTORY: Altered mental status COMPARISONS: March 23, 2017 TECHNIQUE: Multiple contiguous axial CT scans were obtained of the head without intravenous contrast. FINDINGS: HEMORRHAGE/INFARCT: There is no hemorrhage or acute infarct. MASSES/SHIFT: There is no mass or shift. EXTRA-AXIAL SPACES: There are no extra-axial fluid collections. SULCI AND VENTRICLES: There is diffuse ventriculomegaly that is somewhat is proportionate to the degree of sulcal volume loss. CEREBRUM: There is hypoattenuation of the periventricular and subcortical white matter. BRAINSTEM: There are no focal parenchymal abnormalities. CEREBELLUM: There are no focal parenchymal abnormalities. VESSELS: The vessels are grossly normal. PARANASAL SINUSES: The paranasal sinuses are clear. ORBITS: The orbits are unremarkable. BONES AND SOFT TISSUE: No bone or soft tissue abnormalities are noted. OTHER: None IMPRESSION: 1. 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 2. CHRONIC SMALL VESSEL ISCHEMIC CHANGE
[2017-04-19] MEDS ORDERED: cefTRIAXone(*) 1 GM in NS 0.9% 50 ML* 50 ML IVPB ONE (18:31)
[2017-04-19] MEDS ORDERED: Baclofen TAB* 10 MG PO PRN (19:42)
[2017-04-19] MEDS ORDERED: Polyethylene Glycol 3350* 17 GM PACKET PO PRN (19:42)
[2017-04-19] MEDS ORDERED: NS 0.9% 1000 ML* 1,000 ML IV SCH (19:45)
[2017-04-19] MEDS ORDERED: Dextrose 50% Syringe 50 ML* 25 GM/50 ML SYRINGE IV PUSH PRN (20:20)
--- NOTE | 2017-04-19 21:05 | RAD ---
HISTORY: Confusion, right hand weakness COMPARISONS: Head CT dated April 19, 2015, MRI of the brain dated March 02, 2014 TECHNIQUE: The following sequences were obtained of the head: Sagittal T1-weighted images, axial T2-weighted images, axial FLAIR images, axial susceptibility weighted images, axial T1-weighted images. Additionally, axial diffusion-weighted images were obtained with calculated apparent diffusion coefficients. FINDINGS: The study is limited by patient motion artifact. HEMORRHAGE/INFARCT: There is no hemorrhage or acute infarct. MASSES/SHIFT: There is no mass or shift. EXTRA-AXIAL SPACES/MENINGES: There are no extra-axial fluid collections. SULCI AND VENTRICLES: Again noted is ventriculomegaly that is disproportionate to the degree of sulcal enlargement. CEREBRUM: There is elevated T2/FLAIR signal in the periventricular white matter. This is similar to the previous examination. BRAINSTEM: There are no focal parenchymal abnormalities. CEREBELLUM: There are no focal parenchymal abnormalities. The cerebellar tonsils are normal in size and position. SELLA: The sella is normal. PINEAL: The pineal region is clear. CP ANGLE/TEMPORAL BONES: The labyrinthine structures are grossly normal. VESSELS: Normal flow-voids are noted within the visualized vertebral vasculature. DIFFUSION ABNORMALITIES: There are no diffusion abnormalities. PARANASAL SINUSES/MASTOIDS: There is mucosal thickening of the left maxillary sinus. ORBITS: The orbits are unremarkable. BONES AND SOFT TISSUE: No bone or soft tissue abnormalities are noted. OTHER: None IMPRESSION: 1. LIMITED STUDY. 2. NO RESTRICTED DIFFUSION TO SUGGEST ACUTE INFARCT. 3. ELEVATED T2/STIR SIGNAL IN THE PERIVENTRICULAR WHITE MATTER SUGGESTIVE OF CHRONIC SMALL VESSEL ISCHEMIA. 4. VENTRICULOMEGALY THAT IS DISPROPORTIONATE TO THE DEGREE OF SULCAL ATROPHY. THIS MAY SUGGEST THE PRESENCE OF A COMMUNICATING HYDROCEPHALUS, INCLUDING NORMAL PRESSURE HYDROCEPHALUS.
[2017-04-19] MEDS: Azithromycin IV(*) 500 MG in NS 0.9% 250 ML* 250 ML IVPB SCH (22:11)
[2017-04-19] MEDS: Famotidine TAB* 20 MG PO SCH (22:13)
[2017-04-19] MEDS: guaiFENesin ER TAB 600 MG PO SCH (22:13)
[2017-04-19] MEDS: CMCS: Melatonin (NF) 3 MG TAB PO SCH (22:13)
[2017-04-19] MEDS: Pramipexole TAB* 0.5 MG PO SCH (22:14)
[2017-04-19] MEDS: Terazosin CAP* 5 MG PO SCH (22:14)
[2017-04-19] MEDS: Heparin VIAL(*) 5000 UNITS/ML VIAL (FIVE THOUSAND) SUBCUT SCH (22:15)
[2017-04-19] MEDS: Benzonatate CAP* 100 MG PO PRN (22:16)
[2017-04-19] MEDS: Insulin LISPRO* 1 UNITS UNIT SUBCUT SCH (23:24)
[2017-04-20] MEDS ORDERED: Haloperidol INJ IV/IM* 5 MG/ML AMP IV SLOW PU ONE (00:56)
--- NOTE | 2017-04-20 05:59 | HP ---
HISTORY AND PHYSICAL: DATE OF ADMISSION: 04/19/17 PRIMARY CARE PROVIDER: Dr. Wade. CHIEF COMPLAINT: Confusion and weakness. HISTORY OF PRESENT ILLNESS: Ms. Avery is an 82-year-old female who has a past medical history significant for type 2 diabetes, hypertension, RLS, rheumatoid arthritis, spinal stenosis, who presented to the emergency room with complaints of confusion and weakness. Following the patient's hospitalization in March 2017, she was discharged to [facility]. The patient's family indicates that since that hospitalization, the patient has remained intermittently confused with hallucinations and being off balance. The patient' s daughter states that the staff at the penitentiary today felt that she was more confused. Additionally, it was noted that the patient could not hold anything in her right hand. The right seemed worse than the left; however, she is right-handed, so she tends to use the hand more anyway. The patient states, at this point she is concerned about her symptoms. She, however, really does not provide any meaningful history. PAST MEDICAL HISTORY: 1. Hypertension. 2. Type 2 diabetes. 3. RLS. 4. RA. 5. Spinal stenosis. PAST SURGICAL HISTORY: 1. Decompressive lumbar laminectomy. 2. Tonsillectomy. 3. Diskectomy, L4-5. 4. Laparoscopic cholecystectomy. 5. Left total knee replacement. 6. Left carpal tunnel release. MEDICATIONS: 1. Methotrexate 4 tabs p.o. weekly, has been on hold for the last few weeks. 2. Robitussin DM 10 mL p.o. q.4 hours p.r.n. cough. 3. Melatonin 3 mg p.o. q.h.s. 4. Tylenol 650 mg p.o. q.4 hours p.r.n. pain. 5. MiraLAX 17 g p.o. daily p.r.n. constipation. 6. Baclofen 10 mg p.o. t.i.d. p.r.n. spasm. 7. Terazosin 10 mg p.o. q.h.s. 8. Ranitidine 300 mg p.o. q.h.s. 9. Mirapex 0.5 mg p.o. t.i.d. 10. Multivitamin 1 tab p.o. daily. 11. Metformin 500 mg p.o. daily. 12. Oxybutynin 5 mg p.o. daily. 13. Aspirin 81 mg p.o. daily. 14. Ascorbic acid 1000 mg p.o. daily. 15. Leucovorin 5 mg p.o. weekly (has been on hold for the last couple of weeks) . ALLERGIES: GABAPENTIN, TARUN INHIBITORS, NAPROXEN, and BETA-BLOCKERS. FAMILY HISTORY: The patient's mom had Parkinson's and dementia. Dad had a history of CVA. SOCIAL HISTORY: The patient is a nonsmoker. She does not drink. She has been residing at [facility] since her last hospitalization. Her daughter is her healthcare proxy. She is . 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 REVIEW OF SYSTEMS: A complete 11-system review of systems was obtained. Pertinent positives and negatives are as per HPI and otherwise negative. PHYSICAL EXAMINATION GENERAL: The patient is a well-developed elderly female, sitting up on the stretcher, in no acute distress. VITAL SIGNS: Blood pressure 179/83, pulse 88, respirations 22, temp 98.2, O2 sat 97% on room air. HEENT: Pupils are equal and round. Extraocular muscles are intact. Oropharynx is clear. Oral mucosa is moist. The patient wears dentures. There is no submandibular, cervical or supraclavicular adenopathy. Thyroid is not enlarged. No thyroid nodules noted. PULMONARY: Lungs are clear to auscultation bilaterally, though the patient has a very moist cough. CARDIAC: Normal S1, S2. Regular rate and rhythm. I do not appreciate any murmurs. There is 1+ pitting edema to the left lower extremity. ABDOMEN: Bowel sounds present. Abdomen is soft, nontender, nondistended. MUSCULOSKELETAL: There is no cyanosis or clubbing of the digits. There is full active range of motion of all 4 extremities. SKIN: Warm and dry. There are no rashes. NEUROLOGIC: Cranial nerves II through XII are grossly intact. Sensation is intact to light touch throughout. Strength is 5/5 and symmetric in all 4 extremities; however, there is slight weakness to the right triceps compared to the left. Heel- to-best testing, rapid alternating movement testing, and finger -to-nose testing are all intact, without any clumsiness. PSYCH: The patient is alert. She is oriented to place and situation, but in general is seemingly confused. DIAGNOSTIC STUDIES/LAB DATA: WBC 8.3, hemoglobin 11.6, hematocrit 34, platelets 342. Sodium 137, potassium 3.5, chloride 102, CO2 of 27, BUN 12, creatinine 0.69, glucose 112, lactic acid 0.8, calcium 9.5. Magnesium 2.0. Bilirubin 0.8, AST 15, ALT 12, alk phos 46. Ammonia 35. CPK 50. Troponin 0.04. BNP 39. Albumin 4.0. TSH 1.13. Urinalysis reveals trace ketones and otherwise is negative. Urine drug screen is negative. Acetaminophen less than 15. Serum alcohol less than 10. EKG reveals normal sinus rhythm without any acute ST-T wave abnormalities. Chest x-ray reveals possible mild pulmonary interstitial edema. CT brain reveals disproportionate ventriculomegaly, which may indicate the presence of an adult-onset communicating hydrocephalus, including normal pressure hydrocephalus. Chronic small vessel ischemic changes noted. ASSESSMENT AND PLAN: Ms. Avery is an 82-year-old female, who last month was noted to have increased confusion from baseline, which was initially attributed to a urinary tract infection and hyponatremia, who returns to the emergency room with continued confusion, now associated hallucinations and being off balance as well as not being able to hold items in her right hand. 1. Confusion. The etiology of this is not completely clear. It is possible the patient may have an underlying dementia that is progressing; however, before this diagnosis is made, we must rule out other causes. I will obtain a Neurology consultation. I spoke with Dr. Goodman from Neurology, who will see the patient tomorrow. As the patient's daughter has been complaining that she has been dropping items from her hands, MRI of the brain will be obtained. Additionally, this will better evaluate the ventricles. She will be on neuro checks overnight. 2. Probable bronchitis. The patient has a clear chest x-ray and a normal white blood cell count. Her lungs also sound clear on exam; however, as she has been "fighting" a cold for over the last 1 week, I will go ahead and continue the patient on antibiotics. She received a dose of ceftriaxone in the emergency room. I will add azithromycin, continue azithromycin alone to treat for possible bronchitis. 3. Type 2 diabetes. The patient's metformin will be held. She will be placed on glucoses a.c. and h.s., with lispro sliding scale. 4. Hypertension. The patient's blood pressure is markedly elevated at this point. She will receive terazosin at bedtime. We will follow her blood pressure and if this does not improve, we will adjust her antihypertensive regimen. 5. Rheumatoid arthritis. The patient's methotrexate and leucovorin will continue to be held. 6. Restless leg syndrome. We will continue Mirapex for now. 7. DVT prophylaxis. According to the Adult Thrombosis Prophylaxis Risk Factor Assessment Guide, the patient has a total risk factor score of 4 making her high risk. She will be placed on heparin 5000 units subcutaneous q.8 hours. 8. Code status is DNR. [id number]/[facility] #: [id number] MTDD
[2017-04-20] MEDS: Heparin VIAL(*) 5000 UNITS/ML VIAL (FIVE THOUSAND) SUBCUT SCH ×3 (06:01→20:53)
[2017-04-20 07:15] LABS: EGFR Non-African American 93.4 (>60)
[2017-04-20] MEDS: Aspirin Low Dose CHEW TAB* 81 MG PO SCH (08:11)
[2017-04-20] MEDS: Oxybutynin TAB* 5 MG PO SCH (08:11)
[2017-04-20] MEDS: guaiFENesin ER TAB 600 MG PO SCH ×2 (08:11→20:51)
[2017-04-20] MEDS: Pramipexole TAB* 0.5 MG PO SCH ×3 (08:11→20:53)
[2017-04-20] MEDS: Insulin LISPRO* 1 UNITS UNIT SUBCUT SCH ×4 (08:12→20:52)
--- NOTE | 2017-04-20 11:51 | RAD ---
INDICATION: LEFT lower extremity edema. COMPARISON: No relevant prior exams available on the [facility] [place] for comparison. TECHNIQUE: Monk scale, color Doppler, and spectral analysis of the deep veins of the LEFT lower extremity. Vessel compression, phasicity, and augmentation assessed. REPORT: The LEFT common femoral, great saphenous, profunda femoral, femoral, popliteal, peroneal, and posterior tibial veins are patent. Assessment of the peroneal is is limited due to color Doppler due to body habitus and soft tissue edema limiting acoustic window. Patency of the RIGHT common femoral vein documented. IMPRESSION: No evidence for LEFT lower extremity deep venous thrombosis.
--- NOTE | 2017-04-20 13:27 | PN ---
Subjective Date of Service: 04/20/17 Interval History: Patient seen and examined, appropriate. No confusion at present. Eating lunch, no complaints. States that she was fatigued at admission, but feeling better now. Discussed MRI results and Dr. Goodman/neurologist and follow ups. Denies any fever, chills, fatigue, headache, chest pain, SOB, n/v/d. Objective Active Medications: Acetaminophen (Tylenol Tab*) 650 mg PO Q4H PRN PRN Reason: PAIN Aspirin (Aspirin Low Dose Tab*) 81 mg PO DAILY [facility] Last Admin: 04/20/17 08:11 Dose: 81 mg Baclofen (Lioresal Tab*) 10 mg PO TID PRN PRN Reason: SPASMS Benzonatate (Tessalon Cap*) 200 mg PO BEDTIME PRN PRN Reason: COUGH Last Admin: 04/19/17 22:16 Dose: 200 mg Dextrose (D50w Syringe 50 Ml*) 12.5 gm IV PUSH .FOR FS < 60 - SS PRN PRN Reason: FS < 60 Famotidine (Pepcid Tab*) 40 mg PO BEDTIME PRIYANK PRN Reason: Protocol Last Admin: 04/19/17 22:13 Dose: 40 mg Guaifenesin (Mucinex*) 600 mg PO BID [facility] Last Admin: 04/20/17 08:11 Dose: 600 mg Heparin Sodium (Porcine) (Heparin Vial(*)) 5,000 units SUBCUT Q8HR [facility] Last Admin: 04/20/17 06:01 Dose: 5,000 units Azithromycin 500 mg/ Sodium (Chloride) 250 mls @ 250 mls/hr IVPB Q24H [facility] Last Admin: 04/19/17 22:11 Dose: 250 mls/hr Insulin Human Lispro (Humalog*) 0 units SUBCUT ACHS [facility] PRN Reason: Protocol Last Admin: 04/20/17 08:12 Dose: 1 unit Melatonin (Melatonin (Nf)) 3 mg PO BEDTIME [facility] PRN Reason: Protocol Last Admin: 04/19/17 22:13 Dose: 3 mg Oxybutynin Chloride (Ditropan Tab*) 5 mg PO QAM [facility] Last Admin: 04/20/17 08:11 Dose: 5 mg Polyethylene Glycol/Electrolytes (Miralax*) 17 gm PO DAILY PRN PRN Reason: CONSTIPATION Pramipexole Dihydrochloride (Mirapex Tab*) 0.5 mg PO TID [facility] Last Admin: 04/20/17 08:11 Dose: 0.5 mg Terazosin HCl (Hytrin Cap*) 10 mg PO BEDTIME [facility] Last Admin: 04/19/17 22:14 Dose: 10 mg Vital Signs - 8 hr 04/20/17 08:00 Respiratory 18 Rate Oxygen Devices in Use Now: None Appearance: Aler, well appearing, NAD Ears/Nose/Mouth/Throat: NL Teeth, Lips, Gums, Mucous Membranes Moist Neck: Trachea Midline Respiratory: Symmetrical Chest Expansion and Respiratory Effort, Clear to Auscultation Cardiovascular: NL Sounds; No Murmurs; No JVD Neurological: Alert and Oriented x 3, NL Muscle Strength and Tone Nutrition: Taking PO's Result Diagrams: 04/19/17 16:35 04/20/17 06:52 Microbiology and Other Data: Microbiology 04/19/17 20:57 Influenza Types A,B Antigen (FREDY) - Final Nasal Specimen received for Influenza A/B Molecular testing Diagnostic Imaging: Patient Name: MARCELINO CARMICHAEL Medical Record#: [id number] Ordering Physician: Guadalupe Smith DO Acct.#: [id number] : 1935 Age: 82 Sex: F Location: [address] [place] [address] MEDICAL/TELEMETRY Exam Date: 04/19/171949 ADM Status: ADM Jaida Order Information: MRI BRAIN W/O Accession Number: [id number] CPT: 94275 HISTORY: Confusion, right hand weakness COMPARISONS: Head CT dated April 19, 2015, MRI of the brain dated February TECHNIQUE: The following sequences were obtained of the head: Sagittal T1- weighted images, axial T2-weighted images, axial FLAIR images, axial susceptibility weighted images, axial T1-weighted images. Additionally, axial diffusion-weighted images were obtained with calculated apparent diffusion coefficients. FINDINGS: The study is limited by patient motion artifact. HEMORRHAGE/INFARCT: There is no hemorrhage or acute infarct. MASSES/SHIFT: There is no mass or shift. EXTRA-AXIAL SPACES/MENINGES: There are no extra-axial fluid collections. SULCI AND VENTRICLES: Again noted is ventriculomegaly that is disproportionate to the degree of sulcal enlargement. CEREBRUM: There is elevated T2/FLAIR signal in the periventricular white matter. This is similar to the previous examination. BRAINSTEM: There are no focal parenchymal abnormalities. CEREBELLUM: There are no focal parenchymal abnormalities. The cerebellar tonsils are normal in size and position. SELLA: The sella is normal. PINEAL: The pineal region is clear. CP ANGLE/TEMPORAL BONES: The labyrinthine structures are grossly normal. VESSELS: Normal flow-voids are noted within the visualized vertebral vasculature. DIFFUSION ABNORMALITIES: There are no diffusion abnormalities. PARANASAL SINUSES/MASTOIDS: There is mucosal thickening of the left maxillary sinus. ORBITS: The orbits are unremarkable. BONES AND SOFT TISSUE: No bone or soft tissue abnormalities are noted. OTHER: None IMPRESSION: 1. LIMITED STUDY. 2. NO RESTRICTED DIFFUSION TO SUGGEST ACUTE INFARCT. 3. ELEVATED T2/STIR SIGNAL IN THE PERIVENTRICULAR WHITE MATTER SUGGESTIVE OF CHRONIC SMALL VESSEL ISCHEMIA. 4. VENTRICULOMEGALY THAT IS DISPROPORTIONATE TO THE DEGREE OF SULCAL ATROPHY. THIS MAY SUGGEST THE PRESENCE OF A COMMUNICATING HYDROCEPHALUS, INCLUDING NORMAL PRESSURE HYDROCEPHALUS. Assess/Plan/Problems-Billing Assessment: This is an 82 year old female patient with PMHx of RA, recent UTI, DM, HTN and RLS that presented with some changes in mentation and weakness. - Patient Problems (1) Bronchitis Code(s): J40 - BRONCHITIS, NOT SPECIFIED ACUTE OR CHRONIC SNOMED Code(s): 86597862 Comment: - CXR negative for infiltrate - Continue azithromycin (2) Confusion Code(s): R41.0 - DISORIENTATION, UNSPECIFIED SNOMED Code(s): 914079607 Comment: - MRI as above - Neuro consult appreciated, no changes at this time. Per Dr. Goodman, she should follow up as an outpatient for poss normal pressure hydrocephalus - Sundowning may be a confounding component, also recent hospitalization and UTI - Supportive care with PRN's for sundowning (3) Diabetes Code(s): E11.9 - TYPE 2 DIABETES MELLITUS WITHOUT COMPLICATIONS SNOMED Code(s) : 61117891 Comment: - Continue Lispro SSI (4) HTN (hypertension) Code(s): I10 - ESSENTIAL (PRIMARY) HYPERTENSION SNOMED Code(s): 31522878 Comment: - Stable on terazosin (5) RLS (restless legs syndrome) Comment: - On mirapex (6) Rheumatoid arthritis Code(s): M06.9 - RHEUMATOID ARTHRITIS, UNSPECIFIED SNOMED Code(s): 96665843 Comment: - No flare noted - Continue Methotrexate and Leucovorin and Actempra monthly (7) DVT prophylaxis Code(s): ZXA7481 - SNOMED Code(s): 003413391 Comment: - Heparin SQ (8) DNR (do not resuscitate) Comment: - Code status - DNR Status and Disposition: Remain inpatient for today. If stable thru tomorrow, will DC in AM.
--- NOTE | 2017-04-20 16:51 | ED ---
Jaxson Argueta Thomas, scribed for Rafita Kumar MD on 04/19/17 at 1717 . Altered Mental Status - HPI Summary HPI Summary: The patient is an 82 year old woman [facility] with cold symptoms for the last two days. Today, EMS reports that she has been confused and losing coordination. A staff member will hand her something and then she ll drop it. She has bilateral lower extremity edema. She is alert but not oriented. She answers questions. - History Of Current Complaint Chief Complaint: EDAltMentalStatus Stated Complaint: AMS Time Seen by Provider: 04/19/17 16:24 Hx Obtained From: Patient, EMS Onset/Duration: Still Present Timing: Lasting Days - 2 Severity Currently: Moderate Aggravating Factor(s): Unknown Alleviating Factor(s): Unknown Associated Signs And Symptoms: Negative: Fever - Allergies/Home Medications Allergies/Adverse Reactions: Allergies Allergy/AdvReac Type Severity Reaction Status Date / Time MS Gabapentin [Gabapentin] Allergy Severe Agitation Verified 03/22/17 23:08 MS TARUN Inhibitors Allergy Intermediate Coughing Verified 03/22/17 23:08 [TARUN Inhibitors] MS Naproxen [Naproxen] Allergy Intermediate Rash Verified 03/22/17 23:08 MS Beta Adrenergic Blockers AdvReac Fatigue Verified 03/24/17 14:11 [Beta Adrenergic Blockers] Home Medications: Home Medications Ascorbic Acid TAB* [Vitamin C TAB*] 1,000 mg PO DAILY 04/19/17 [History Confirmed 04/19/17] Aspirin Low Dose CHEW TAB* [Aspirin Low Dose TAB*] 81 mg PO DAILY 04/19/17 [ History Confirmed 04/19/17] GuaiFENesin DM* [Robitussin DM*] 10 ml PO Q4HR PRN 04/19/17 [History Confirmed 04/19/17] Multivitamins/Minerals TAB* [Thera M Plus TAB*] 1 tab PO DAILY 04/19/17 [ History Confirmed 04/19/17] Pramipexole TAB* [Mirapex TAB*] 0.5 mg PO TID 04/19/17 [History Confirmed ] metFORMIN* [Glucophage 500 MG TAB *] 500 mg PO DAILY 04/19/17 [History Confirmed 04/19/17] PMH/Surg Hx/FS Hx/Imm Hx Endocrine/Hematology History: Denies: Hx Diabetes Cardiovascular History: Reports: Hx Hypertension Denies: Hx Pacemaker/ICD GI History: Reports: Hx Gastroesophageal Reflux Disease, Hx Hiatal Hernia History: Denies: Hx Renal Disease Musculoskeletal History: Reports: Hx Arthritis - RA, Other Musculoskeletal History - spinal stenosis Sensory History: Reports: Hx Contacts or Glasses, Hx Hearing Aid Opthamlomology History: Reports: Hx Contacts or Glasses Neurological History: Reports: Hx Nerve Disease - restless leg syndrome Psychiatric History: Denies: Hx Panic Disorder - Cancer History Hx Chemotherapy: No Hx Radiation Therapy: No - Surgical History Surgery Procedure, Year, and Place: LT KNEE REPLACEMENT 28 YRS AGO. GALLBLADDER. LSP SURGERY L4-5 LAMINECTOMY 2010. BILATERAL CATARACTS Hx Anesthesia Reactions: No - Immunization History Date of Tetanus Vaccine: unk Date of Influenza Vaccine: unk Infectious Disease History: No Infectious Disease History: Denies: Traveled Outside the [place] in Last 30 Days - Family History Known Family History: Positive: Hypertension, Diabetes - Social History Alcohol Use: None Substance Use Type: Reports: None Smoking Status (MU): Never Smoked Tobacco Review of Systems Negative: Fever Positive: Other - Cold symptoms Positive: Edema - bialteral lower extremity Neurological: Other - Confused, "loosing coordination" All Other Systems Reviewed And Are Negative: Yes Physical Exam - Summary Physical Exam Summary: VITAL SIGNS: Reviewed. GENERAL: Patient is a well-developed and nourished female who is lying comfortable in the stretcher. Patient is not in any acute respiratory distress. HEAD AND FACE: No signs of trauma. ~No ecchymosis, hematomas or skull depressions. No sinus tenderness. EYES: PERRLA, EOMI x 2, No injected conjunctiva, no nystagmus. EARS: Hearing grossly intact. Ear canals and tympanic membranes are within normal limits. MOUTH: Oropharynx within normal limits. NECK: Supple, trachea is midline, no adenopathy, no JVD, no carotid bruit, no c- spine tenderness, neck with full ROM. CHEST: Symmetric, no tenderness at palpation LUNGS: Crackles in both lungs. CVS: Regular rate and rhythm, S1 and S2 present, no murmurs or gallops appreciated. ABDOMEN: Soft, non-tender. No signs of distention. No rebound no guarding, and no masses palpated. Bowel sounds are normal. EXTREMITIES: Bilateral lower extremity edema. FROM in all major joints, no cyanosis or clubbing. NEURO: Alert but not oriented. No acute neurological deficits. Speech is normal and follows commands. SKIN: Dry and warm Triage Information Reviewed: Yes Vital Signs On Initial Exam: Initial Vitals Temp Pulse Resp BP Pulse Ox 98.2 F 87 15 166/79 96 04/19/17 16:32 04/19/17 16:32 04/19/17 16:32 04/19/17 16:32 04/19/17 16:32 Vital Signs Reviewed: Yes Diagnostics - Vital Signs Vital Signs Temp Pulse Resp BP Pulse Ox 04/19/17 16:32 98.2 F 87 15 166/79 96 - Laboratory Lab Results: Lab Results 04/19/17 04/19/17 04/19/17 Range/Units 16:35 16:35 16:35 WBC 8.3 (3.5-10.8) 10^3/ul RBC 3.51 L (4.0-5.4) 10^6/ul Hgb 11.6 L (12.0-16.0) g/dl Hct 34 L (35-47) % MCV 97 (80-97) fL MCH 33 H (27-31) pg MCHC 34 (31-36) g/dl RDW 13 (10.5-15) % Plt Count 342 (150-450) 10^3/ul MPV 8 (7.4-10.4) um3 Neut % (Auto) 80.1 (38-83) % Lymph % (Auto) 11.0 L (25-47) % Ellsworth % (Auto) 7.6 (1-9) % Eos % (Auto) 0.9 (0-6) % Baso % (Auto) 0.4 (0-2) % Absolute Neuts (auto) 6.6 (1.5-7.7) 10^3/ul Absolute Lymphs (auto) 0.9 L (1.0-4.8) 10^3/ul Absolute Monos (auto) 0.6 (0-0.8) 10^3/ul Absolute Eos (auto) 0.1 (0-0.6) 10^3/ul Absolute Basos (auto) 0 (0-0.2) 10^3/ul Absolute Nucleated RBC 0 10^3/ul Nucleated RBC % 0.1 Sodium 137 (133-145) mmol/L Potassium 3.5 (3.5-5.0) mmol/L Chloride 102 (101-111) mmol/L Carbon Dioxide 27 (22-32) mmol/L Anion Gap 8 (2-11) mmol/L BUN 12 (6-24) mg/dL Creatinine 0.69 (0.51-0.95) mg/dL Est GFR ( Amer) 104.2 (>60) Est GFR (Non-Af Amer) 81.1 (>60) BUN/Creatinine Ratio 17.4 (8-20) Glucose 112 H (70-100) mg/dL Lactic Acid (0.5-2.0) mmol/L Calcium 9.5 (8.6-10.3) mg/dL Magnesium 2.0 (1.9-2.7) mg/dL Total Bilirubin 0.80 (0.2-1.0) mg/dL AST 15 (13-39) U/L ALT 12 (7-52) U/L Alkaline Phosphatase 46 (34-104) U/L Ammonia 35 (16-53) mol/L Total Creatine Kinase 50 (10-223) U/L Troponin I Pending Total Protein 7.1 (6.4-8.9) g/dL Albumin 4.0 (3.2-5.2) g/dL Globulin 3.1 (2-4) g/dL Albumin/Globulin Ratio 1.3 (1-3) TSH Pending Acetaminophen < 15 mcg/mL Serum Alcohol < 10 (<10) mg/dL 04/19/17 Range/Units 16:35 WBC (3.5-10.8) 10^3/ul RBC (4.0-5.4) 10^6/ul Hgb (12.0-16.0) g/dl Hct (35-47) % MCV (80-97) fL MCH (27-31) pg MCHC (31-36) g/dl RDW (10.5-15) % Plt Count (150-450) 10^3/ul MPV (7.4-10.4) um3 Neut % (Auto) (38-83) % Lymph % (Auto) (25-47) % Ellsworth % (Auto) (1-9) % Eos % (Auto) (0-6) % Baso % (Auto) (0-2) % Absolute Neuts (auto) (1.5-7.7) 10^3/ul Absolute Lymphs (auto) (1.0-4.8) 10^3/ul Absolute Monos (auto) (0-0.8) 10^3/ul Absolute Eos (auto) (0-0.6) 10^3/ul Absolute Basos (auto) (0-0.2) 10^3/ul Absolute Nucleated RBC 10^3/ul Nucleated RBC % Sodium (133-145) mmol/L Potassium (3.5-5.0) mmol/L Chloride (101-111) mmol/L Carbon Dioxide (22-32) mmol/L Anion Gap (2-11) mmol/L BUN (6-24) mg/dL Creatinine (0.51-0.95) mg/dL Est GFR ( Amer) (>60) Est GFR (Non-Af Amer) (>60) BUN/Creatinine Ratio (8-20) Glucose (70-100) mg/dL Lactic Acid 0.8 (0.5-2.0) mmol/L Calcium (8.6-10.3) mg/dL Magnesium (1.9-2.7) mg/dL Total Bilirubin (0.2-1.0) mg/dL AST (13-39) U/L ALT (7-52) U/L Alkaline Phosphatase (34-104) U/L Ammonia (16-53) mol/L Total Creatine Kinase (10-223) U/L Troponin I Total Protein (6.4-8.9) g/dL Albumin (3.2-5.2) g/dL Globulin (2-4) g/dL Albumin/Globulin Ratio (1-3) TSH Acetaminophen mcg/mL Serum Alcohol (<10) mg/dL Result Diagrams: 04/19/17 16:35 04/19/17 16:35 Lab Statement: Any lab studies that have been ordered have been reviewed, and results considered in the medical decision making process. - Radiology CXR Xray Interpretation: Positive (See Comments) - MILD PULMONARY INTERSTITIAL EDEMA. Dr. Kumar has reviewed this report. Radiology Interpretation Completed By: Radiologist - CT CT Brain CT Interpretation: No Acute Changes - 1. 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 2. CHRONIC SMALL VESSEL ISCHEMIC CHANGE. Dr. Kumar has reviewed this report. CT Interpretation Completed By: Radiologist - EKG 15:43 Cardiac Rate: NL EKG Rhythm: Sinus Rhythm - at 83 BPM EKG Interpretation: No ST elevations. Altered Mental Statu Course/Dx - Course Assessment/Plan: The patient is an elderly woman [facility] with cold symptoms for the last two days. Today, EMS reports that she has been confused and losing coordination. A staff member will hand her something and then shell drop it. She has bilateral lower extremity edema. She is alert but not oriented. She answers questions. Test results are without significant abnormalities except a slight anemia, troponin 0.04. Urinalysis was negative for UTI. CT Head shows 1. 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 2. CHRONIC SMALL VESSEL ISCHEMIC CHANGE. CXR shows mild pulmonary interstitial edema. Since the patient has congestion of the lung possibly secondary to CHF, I discussed the case with Dr. Aviles, who admits the patient to his services for further workup and management. - Diagnoses Discharge Diagnoses: elevated troponin, rule out MN, Altered mental status - Provider Notifications Discussed Care Of Patient With: Perez Aviles Time Discussed With Above Provider: 19:04 Instructed by Provider To: Admit As Inpatient Discharge - Discharge Plan Condition: Fair Disposition: ADMITTED TO [facility] Referrals: Derrick Wade MD [Primary Care Provider] - The documentation as recorded by the Jaxson luke Thomas accurately reflects the service I personally performed and the decisions made by , Rfaita Kumar MD.
--- NOTE | 2017-04-20 20:17 | CONS ---
CC: Dr. Derrick Wade CONSULTATION REPORT: DATE OF CONSULT: 04/20/17 LOCATION: She is currently in room 437, bed 1. CURRENT PRIMARY CARE PROVIDER IN THE HOSPITAL: Medina Lazo NP REASON FOR CONSULT: Some right hand weakness and some confusion. HISTORY OF PRESENT ILLNESS: Ms. Avery is a very nice 82-year-old female who has a history significant for hypertension, diabetes, restless leg, rheumatoid arthritis, and spinal stenosis. She was recently admitted back in March 2017 with hyponatremia, weakness, and deconditioning as well as some confusion and hallucinations. When she was admitted to the hospital, she was found to have sodium of 120. She had recently been seen several days prior by her primary care provider who diagnosed her with urinary tract infection and started her on Macrobid. At the time when she was admitted, it was noted that she was confused and hallucinating and did not recognize her daughter. 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 She improved slowly over her hospitalization. Her sodium improved as well with fluid restriction. Her Percocet was discontinued as it could have been causing the SIADH and was replaced with baclofen. On the day of discharge, she was back to her baseline, was treated with Kefzol during the hospitalization and discharged home on Keflex. In addition while she was in the hospital, her methotrexate and leucovorin were held, but she had no flares of rheumatoid. She was previously on Sinemet for her restless leg symptoms, but during the hospitalization she was switched to Mirapex, discharged home on 1.5 mg p.o. t.i.d. apparently this was the plan from the beginning to keep her on the Mirapex from her primary care provider. She was discharged to [facility] for rehab. She was also given some melatonin at discharge for some problems sleeping. Addendum to her discharge notes that, she developed some worsening delirium and with hallucinations on the afternoon of 03/26/17. The family was concerned. The patient had had 2 days of poor sleep and was complaining of feeling very tired and it was thought that the delirium was likely related to that. She was given melatonin at bedtime. She did have a CT scan done on the admission. CT scan showed no acute issues. It did show ventriculomegaly. Yesterday, she was brought to the hospital from her alf due to worsening confusion with some hallucinations. Also, she was feeling off balance. Apparently, the staff told her daughter that she was more confused and they also noted that she was not using her hand as much and seemed to be dropping things from her right hand. At the time that she was evaluated in the ER, she seem to be improved. This morning, she denies any problems. She states that she is unclear why she was here, although she notes a cough and feels that it maybe related to her lung issues. She denies any current pain, any current weakness. She states "I feel fine." Overnight, she did become somewhat confused, received Haldol and did improve. This morning, she was compliant and appropriate. She is able to ambulate with assist. Repeat MRI done yesterday. I reviewed the films, shows ventriculomegaly disproportionate to the degree of focal atrophy, which could suggest the presence of communicating hydrocephalus including normal pressure hydrocephalus. There were no diffusion changes to suggest stroke. Her weakness on the right side seems to have improved overnight. PAST MEDICAL HISTORY: As noted above. PAST SURGICAL HISTORY: Includes left carpal tunnel release, laparoscopic total cholecystectomy, diskectomy, tonsillectomy, compressive lumbar laminectomy, total left knee replacement. CURRENT MEDICATIONS: Include: 1. Tylenol p.r.n. 2. Aspirin 81 mg daily. 3. Azithromycin. 4. Baclofen 10 mg p.o. t.i.d. 5. Tessalon. 6. Pepcid 40 mg p.o. at bedtime. 7. Guaifenesin. 8. Heparin DVT prophylaxis. 9. Humalog. 10. Melatonin 3 mg at bedtime. 11. Ditropan 5 mg p.o. q.a.m. 12. MiraLAX. 13. Mirapex 0.5 mg p.o. t.i.d. 14. Hytrin. 15. She did received Haldol last night. ALLERGIES: BETA-SCOTTIE, NAPROXEN, TARUN INHIBITORS, and GABAPENTIN. FAMILY HISTORY: Significant for mom with Parkinson and dementia. Father with stroke. SOCIAL HISTORY: No tobacco, alcohol, or drug use. Currently living at [facility]. She has 4 children. REVIEW OF SYSTEMS: Review of systems in 14-organ systems was attempted. Basically, the patient denies any current complaints. She states that she feels fine. She wants to go home. She is not hurting. She has no shortness of breath, although she does admit to a cough. She denies any nausea, vomiting , diarrhea, constipation, fever, chills, sweats. She does have chronic lumbosacral back pain, which has not changed. Otherwise, her review of systems in 14-organ systems was negative. PHYSICAL EXAM: Vital Signs: Temp is afebrile, 98.5; blood pressure 136/53 to 141/55 to 163/65 ; pulse rate 84 to 138; respiratory rate 16 to 20, O2 sats of 94% to 98%. General: In general, she is a well-nourished, well-developed female, in no acute distress. She is sitting on her hospital bed, watching TV. She is very pleasant, well dressed, well groomed. HEENT: She is normocephalic, atraumatic. Sclerae are anicteric. Mucous membranes are moist. Oropharynx is clear. Nares are patent. Neck: Supple. No thyromegaly. No carotid bruits. No meningismus. Chest: Has some coarse breath sounds bilaterally. Cardiovascular: Regular rate and rhythm without murmurs. Abdomen: Nontender and nondistended. Positive bowel sounds. Extremities: No clubbing or cyanosis. She does have some mild pitting edema in the left lower extremity greater than the right lower extremity. Skin: Warm and dry. No lesions. Neurologic Exam: She is awake, alert. She is oriented to person. She knew that she was in [place], [place]. She knew that it was . Her speech is fluent. There is no dysarthria. Repetition is intact. Recall is somewhat impaired. Cranial Nerves: Pupils are equal, round and reactive to light. Extraocular muscles are intact. Visual rachel are full to confrontation. Face is symmetric and sensation is intact. Hearing is intact bilaterally with the finger rub. Palate raises symmetrically. Tongue is midline. Sternocleidomastoids and trapezius are 5/5. She spontaneously moves all extremities antigravity 5/5 throughout. I appreciate no significant weakness in her right upper extremity. No drift is apparent. DTRs are trace in the upper extremities, trace in the lower extremities bilaterally equivocal Babinski's. [id number] and rapid alternating movements are significant for some mild intention tremor bilaterally. No resting tremor was noted. No increased tone or cogwheeling noted. Sensation is grossly intact to light touch and pinprick throughout. There are no focal deficits. I did not test her gait this morning. She states that she feels a little unsteady. DIAGNOSTIC STUDIES/LAB DATA: MRI of the brain as noted above. She also had a CT scan of the brain, which showed no acute changes, did show the ventriculomegaly and some ischemic changes. Films were reviewed. Lab work: CBC with diff with a normal white count, slightly decreased hemoglobin and hematocrit at 11.6 and 34, 11 lymphocyte percent, 0.9 absolute lymphocyte. Chemistry: Her sodium is normal, potassium is 3.2, glucose 141 to 130 to 138, calcium of 8.8. Troponin I of 0.04 , repeat 0.03. TSH of 1.13. Ammonia of 35. BNP of 39. Lactic acid of 0.8. Her urine shows trace ketones. Urine ascorbic acid was high. Negative glucose. U-tox was negative. Serum alcohol less than 10. Acetaminophen less than 15. Influenza A and B is negative. ASSESSMENT AND PLAN: Ms. Avery is an 82-year-old female with multiple medical problems, recently admitted back in March with hyponatremia, some confusion, hallucinations, urinary tract infection at that time. She also has a history of restless leg and apparently her Sinemet at that time was changed to Mirapex. It shows that she was discharged home on 1.5 mg, but currently she is on 0.5 mg t.i.d. She was discharged to alf for rehab care, was admitted to the hospital yesterday with worsening confusion. There was some concern that she might have some right-sided weakness. She was apparently having some hallucinations yesterday as well. When she was admitted, she seemed to be improved, although last night became somewhat confused, received one dose of Haldol and responded well. This morning, she seems better. She is alert and oriented to me this morning, pleasant, following all commands. I appreciated no right-sided weakness. I did review her studies including her MRIs. I did speak with her treating care provider as well. At this point, I think that her confusion and hallucinations maybe multifactorial in nature. 1. She is on several medications which could contribute to this including the Mirapex, but she is on a lower dose now and I will continue the lower dose as long as she can tolerate that. In addition, Ditropan can sometimes cause confusion although she has been on this for sometime. Melatonin, which was recently started, can sometimes cause confusion in the elderly, although typically does not and I would continue this for sleep at night. Baclofen could also cause some confusion, although she has been on this for sometime since her last admission. --I would continue her current medications as if she becomes more confused, you can consider switching her Mirapex back to the Sinemet, could consider stopping the melatonin. Given the fact that she may have had a bad reaction to the Percocet at the last visit, baclofen could be reduced to 5 mg p.o. t.i.d. 2. Given the rather acute nature of her decline, I am concerned more about an underlying delirium possibly related to a chest infection or bronchitis. I think that there was some element of sundowning last night contributing to her symptoms and I do think that she may have some underlying dementia, although it is difficult to assess the degree at this point in an acute setting. 3. My concern for normal pressure hydrocephalus is low at this point, although I cannot rule it out. I would like the opportunity to better evaluate her once she is more stable in the outpatient setting. At that time, we can more fully evaluate her memory. It will be more reliable and based on that can make a decision as to whether or not we would like to proceed with possible lumbar puncture although at this point, I think the yield would be low. Given her other underlying medical issues, I would be hesitant to put her through a shunt operation and my plan is to see her back after discharge to better evaluate her. 4. Continue treatment of underlying infection as this could be contributing as well. She is currently on Azithromycin 5. I see no evidence for stroke that could cause her symptoms, TIA would be unlikely as well. MRI reviewed I think once she is stable medically, she can be discharged home, but I would like to see her back in my office for additional followup and further evaluation. I will remain available for any additional issues during her hospitalization. Otherwise, I will plan to see her back as an outpatient. Thank you for the opportunity to participate in her care. [id number]/[facility] #: [id number] ALAYNA
[2017-04-20] MEDS: Azithromycin IV(*) 500 MG in NS 0.9% 250 ML* 250 ML IVPB SCH (20:50)
[2017-04-20] MEDS: Famotidine TAB* 20 MG PO SCH (20:50)
[2017-04-20] MEDS: CMCS: Melatonin (NF) 3 MG TAB PO SCH (20:52)
[2017-04-20] MEDS: Terazosin CAP* 5 MG PO SCH (20:53)
[2017-04-21] MEDS: Acetaminophen TAB* 325 MG PO PRN ×2 (02:26→12:25)
[2017-04-21] MEDS: Heparin VIAL(*) 5000 UNITS/ML VIAL (FIVE THOUSAND) SUBCUT SCH ×3 (05:16→20:13)
[2017-04-21] MEDS: Insulin LISPRO* 1 UNITS UNIT SUBCUT SCH ×4 (08:00→20:14)
[2017-04-21] MEDS: guaiFENesin ER TAB 600 MG PO SCH ×2 (08:04→19:29)
[2017-04-21] MEDS: Pramipexole TAB* 0.5 MG PO SCH ×3 (08:04→19:29)
[2017-04-21] MEDS: Oxybutynin TAB* 5 MG PO SCH (08:04)
[2017-04-21] MEDS: Aspirin Low Dose CHEW TAB* 81 MG PO SCH (08:04)
[2017-04-21] MEDS: OLANzapine TAB* 2.5 MG PO PRN ×2 (10:07→20:14)
--- NOTE | 2017-04-21 11:28 | PN ---
Subjective Date of Service: 04/21/17 Interval History: Patient seen and examined. Per RN, patient had periods of agitation overnight and again this morning. She is presently confused, has PA monitor on. Keeps trying to put her clothes on over her gown and requires frequent reorientation. However, she states she feels well, has no complaints and wants to go home. Objective Active Medications: Acetaminophen (Tylenol Tab*) 650 mg PO Q4H PRN PRN Reason: PAIN Last Admin: 04/21/17 02:26 Dose: 650 mg Aspirin (Aspirin Low Dose Tab*) 81 mg PO DAILY PRIYANK Last Admin: 04/21/17 08:04 Dose: 81 mg Baclofen (Lioresal Tab*) 10 mg PO TID PRN PRN Reason: SPASMS Benzonatate (Tessalon Cap*) 200 mg PO BEDTIME PRN PRN Reason: COUGH Last Admin: 04/19/17 22:16 Dose: 200 mg Dextrose (D50w Syringe 50 Ml*) 12.5 gm IV PUSH .FOR FS < 60 - SS PRN PRN Reason: FS < 60 Famotidine (Pepcid Tab*) 40 mg PO BEDTIME PRIYANK PRN Reason: Protocol Last Admin: 04/20/17 20:50 Dose: 40 mg Guaifenesin (Mucinex*) 600 mg PO BID [facility] Last Admin: 04/21/17 08:04 Dose: 600 mg Heparin Sodium (Porcine) (Heparin Vial(*)) 5,000 units SUBCUT Q8HR [facility] Last Admin: 04/21/17 05:16 Dose: 5,000 units Azithromycin 500 mg/ Sodium (Chloride) 250 mls @ 250 mls/hr IVPB Q24H PRIYANK Last Admin: 04/20/17 20:50 Dose: 250 mls/hr Insulin Human Lispro (Humalog*) 0 units SUBCUT ACHS PRIYANK PRN Reason: Protocol Last Admin: 04/21/17 08:00 Dose: Not Given Melatonin (Melatonin (Nf)) 3 mg PO BEDTIME PRIYANK PRN Reason: Protocol Last Admin: 04/20/17 20:52 Dose: 3 mg Olanzapine (Zyprexa Tab*) 2.5 mg PO Q6H PRN PRN Reason: AGITATION Last Admin: 04/21/17 10:07 Dose: 2.5 mg Oxybutynin Chloride (Ditropan Tab*) 5 mg PO QAM [facility] Last Admin: 04/21/17 08:04 Dose: 5 mg Polyethylene Glycol/Electrolytes (Miralax*) 17 gm PO DAILY PRN PRN Reason: CONSTIPATION Last Admin: 04/21/17 08:04 Dose: 17 gm Pramipexole Dihydrochloride (Mirapex Tab*) 0.5 mg PO TID [facility] Last Admin: 04/21/17 08:04 Dose: 0.5 mg Terazosin HCl (Hytrin Cap*) 10 mg PO BEDTIME [facility] Last Admin: 04/20/17 20:53 Dose: 10 mg Vital Signs - 8 hr 04/21/17 04/21/17 04/21/17 05:32 07:43 08:00 Temperature 98.1 F 98.7 F Pulse Rate 83 77 Respiratory 20 16 Rate Blood Pressure 107/78 144/79 (mmHg) O2 Sat by Pulse 97 98 Oximetry Oxygen Devices in Use Now: None Appearance: Alert, confused Eyes: PERRLA Ears/Nose/Mouth/Throat: NL Teeth, Lips, Gums, Mucous Membranes Moist Neck: Trachea Midline Respiratory: Symmetrical Chest Expansion and Respiratory Effort, Clear to Auscultation Cardiovascular: NL Sounds; No Murmurs; No JVD, RRR Abdominal: NL Sounds; No Tenderness; No Distention Neurological: NL Gait, - - alert, confused Nutrition: Taking PO's Result Diagrams: 04/19/17 16:35 04/20/17 06:52 Additional Lab and Data: Lab Results 04/19/17 04/19/17 04/19/17 Range/Units 16:35 16:35 16:35 WBC 8.3 (3.5-10.8) 10^3/ul RBC 3.51 L (4.0-5.4) 10^6/ul Hgb 11.6 L (12.0-16.0) g/dl Hct 34 L (35-47) % MCV 97 (80-97) fL MCH 33 H (27-31) pg MCHC 34 (31-36) g/dl RDW 13 (10.5-15) % Plt Count 342 (150-450) 10^3/ul MPV 8 (7.4-10.4) um3 Neut % (Auto) 80.1 (38-83) % Lymph % (Auto) 11.0 L (25-47) % [place] % (Auto) 7.6 (1-9) % Eos % (Auto) 0.9 (0-6) % Baso % (Auto) 0.4 (0-2) % Absolute Neuts (auto) 6.6 (1.5-7.7) 10^3/ul Absolute Lymphs (auto) 0.9 L (1.0-4.8) 10^3/ul Absolute Monos (auto) 0.6 (0-0.8) 10^3/ul Absolute Eos (auto) 0.1 (0-0.6) 10^3/ul Absolute Basos (auto) 0 (0-0.2) 10^3/ul Absolute Nucleated RBC 0 10^3/ul Nucleated RBC % 0.1 Sodium 137 (133-145) mmol/L Potassium 3.5 (3.5-5.0) mmol/L Chloride 102 (101-111) mmol/L Carbon Dioxide 27 (22-32) mmol/L Anion Gap 8 (2-11) mmol/L BUN 12 (6-24) mg/dL Creatinine 0.69 (0.51-0.95) mg/dL Est GFR ( Amer) 104.2 (>60) Est GFR (Non-Af Amer) 81.1 (>60) BUN/Creatinine Ratio 17.4 (8-20) Glucose 112 H (70-100) mg/dL Lactic Acid (0.5-2.0) mmol/L Calcium 9.5 (8.6-10.3) mg/dL Magnesium 2.0 (1.9-2.7) mg/dL Total Bilirubin 0.80 (0.2-1.0) mg/dL AST 15 (13-39) U/L ALT 12 (7-52) U/L Alkaline Phosphatase 46 (34-104) U/L Ammonia 35 (16-53) mol/L Total Creatine Kinase 50 (10-223) U/L Troponin I Pending Total Protein 7.1 (6.4-8.9) g/dL Albumin 4.0 (3.2-5.2) g/dL Globulin 3.1 (2-4) g/dL Albumin/Globulin Ratio 1.3 (1-3) TSH Pending Acetaminophen < 15 mcg/mL Serum Alcohol < 10 (<10) mg/dL 02/09/18 Range/Units 16:35 WBC (3.5-10.8) 10^3/ul RBC (4.0-5.4) 10^6/ul Hgb (12.0-16.0) g/dl Hct (35-47) % MCV (80-97) fL MCH (27-31) pg MCHC (31-36) g/dl RDW (10.5-15) % Plt Count (150-450) 10^3/ul MPV (7.4-10.4) um3 Neut % (Auto) (38-83) % Lymph % (Auto) (25-47) % [place] % (Auto) (1-9) % Eos % (Auto) (0-6) % Baso % (Auto) (0-2) % Absolute Neuts (auto) (1.5-7.7) 10^3/ul Absolute Lymphs (auto) (1.0-4.8) 10^3/ul Absolute Monos (auto) (0-0.8) 10^3/ul Absolute Eos (auto) (0-0.6) 10^3/ul Absolute Basos (auto) (0-0.2) 10^3/ul Absolute Nucleated RBC 10^3/ul Nucleated RBC % Sodium (133-145) mmol/L Potassium (3.5-5.0) mmol/L Chloride (101-111) mmol/L Carbon Dioxide (22-32) mmol/L Anion Gap (2-11) mmol/L BUN (6-24) mg/dL Creatinine (0.51-0.95) mg/dL Est GFR ( Amer) (>60) Est GFR (Non-Af Amer) (>60) BUN/Creatinine Ratio (8-20) Glucose (70-100) mg/dL Lactic Acid 0.8 (0.5-2.0) mmol/L Calcium (8.6-10.3) mg/dL Magnesium (1.9-2.7) mg/dL Total Bilirubin (0.2-1.0) mg/dL AST (13-39) U/L ALT (7-52) U/L Alkaline Phosphatase (34-104) U/L Ammonia (16-53) mol/L Total Creatine Kinase (10-223) U/L Troponin I Total Protein (6.4-8.9) g/dL Albumin (3.2-5.2) g/dL Globulin (2-4) g/dL Albumin/Globulin Ratio (1-3) TSH Acetaminophen mcg/mL Serum Alcohol (<10) mg/dL Microbiology and Other Data: Microbiology 04/19/17 20:57 Influenza Types A,B Antigen (FREDY) - Final Nasal Specimen received for Influenza A/B Molecular testing Diagnostic Imaging: Patient Name: MARCELINO CARMICHAEL Medical Record#: [id number] Ordering Physician: Guadalupe Smith DO Acct.#: [id number] : 1935 Age: 82 Sex: F Location: [address] [place] [address] - MEDICAL/TELEMETRY Exam Date: 04/19/171949 ADM Status: ADM Jaida Order Information: MRI BRAIN W/O Accession Number: [id number] CPT: 26446 HISTORY: Confusion, right hand weakness COMPARISONS: Head CT dated April 19, 2015, MRI of the brain dated February TECHNIQUE: The following sequences were obtained of the head: Sagittal T1- weighted images, axial T2-weighted images, axial FLAIR images, axial susceptibility weighted images, axial T1-weighted images. Additionally, axial diffusion-weighted images were obtained with calculated apparent diffusion coefficients. FINDINGS: The study is limited by patient motion artifact. HEMORRHAGE/INFARCT: There is no hemorrhage or acute infarct. MASSES/SHIFT: There is no mass or shift. EXTRA-AXIAL SPACES/MENINGES: There are no extra-axial fluid collections. SULCI AND VENTRICLES: Again noted is ventriculomegaly that is disproportionate to the degree of sulcal enlargement. CEREBRUM: There is elevated T2/FLAIR signal in the periventricular white matter. This is similar to the previous examination. BRAINSTEM: There are no focal parenchymal abnormalities. CEREBELLUM: There are no focal parenchymal abnormalities. The cerebellar tonsils are normal in size and position. SELLA: The sella is normal. PINEAL: The pineal region is clear. CP ANGLE/TEMPORAL BONES: The labyrinthine structures are grossly normal. VESSELS: Normal flow-voids are noted within the visualized vertebral vasculature. DIFFUSION ABNORMALITIES: There are no diffusion abnormalities. PARANASAL SINUSES/MASTOIDS: There is mucosal thickening of the left maxillary sinus. ORBITS: The orbits are unremarkable. BONES AND SOFT TISSUE: No bone or soft tissue abnormalities are noted. OTHER: None IMPRESSION: 1. LIMITED STUDY. 2. NO RESTRICTED DIFFUSION TO SUGGEST ACUTE INFARCT. 3. ELEVATED T2/STIR SIGNAL IN THE PERIVENTRICULAR WHITE MATTER SUGGESTIVE OF CHRONIC SMALL VESSEL ISCHEMIA. 4. VENTRICULOMEGALY THAT IS DISPROPORTIONATE TO THE DEGREE OF SULCAL ATROPHY. THIS MAY SUGGEST THE PRESENCE OF A COMMUNICATING HYDROCEPHALUS, INCLUDING NORMAL PRESSURE HYDROCEPHALUS. Assess/Plan/Problems-Billing Assessment: This is an 82 year old female patient with PMHx of RA, recent UTI, DM, HTN and RLS that presented with some changes in mentation, cough and weakness. - Patient Problems (1) Bronchitis Code(s): J40 - BRONCHITIS, NOT SPECIFIED ACUTE OR CHRONIC SNOMED Code(s): 14054522 Comment: - CXR negative for infiltrate - Continue azithromycin (2) Confusion Code(s): R41.0 - DISORIENTATION, UNSPECIFIED SNOMED Code(s): 458997899 Comment: - MRI as above - Neuro consult appreciated, no changes at this time. Per Dr. Goodman, she should follow up as an outpatient for poss normal pressure hydrocephalus - Sundowning may be a confounding component, also recent hospitalization and UTI - Supportive care with PRN's for sundowning, zyprexa low dose (3) Diabetes Code(s): E11.9 - TYPE 2 DIABETES MELLITUS WITHOUT COMPLICATIONS SNOMED Code(s) : 74420145 Comment: - Continue Lispro SSI (4) HTN (hypertension) Code(s): I10 - ESSENTIAL (PRIMARY) HYPERTENSION SNOMED Code(s): 46587500 Comment: - Stable on terazosin (5) RLS (restless legs syndrome) Comment: - On mirapex (6) Rheumatoid arthritis Code(s): M06.9 - RHEUMATOID ARTHRITIS, UNSPECIFIED SNOMED Code(s): 01455163 Comment: - No flare noted - Continue Methotrexate and Leucovorin and Actempra monthly (7) DVT prophylaxis Code(s): RCH9796 - SNOMED Code(s): 437446160 Comment: - Heparin SQ (8) DNR (do not resuscitate) Comment: - Code status - DNR Status and Disposition: Discussed case with Dr. Goodman, he feels if she is back in her own environment with low dose zyprexa, she may do better. Sundowning/confusion may persist periodically, but he will see her as an outpatient and follow up. Will DC back to [place] this afternoon if she is responsive to zyprexa. Counseling and/or Coordination of Care Minutes: coordinated with LYLE Perla and DOMINGO Croft
[2017-04-21] MEDS ORDERED: Potassium Chlor TAB* 20 MEQ TAB.ER PO ONE (11:36)
[2017-04-21] MEDS: Azithromycin IV(*) 500 MG in NS 0.9% 250 ML* 250 ML IVPB SCH (19:28)
[2017-04-21] MEDS: Terazosin CAP* 5 MG PO SCH (19:28)
[2017-04-21] MEDS: CMCS: Melatonin (NF) 3 MG TAB PO SCH (19:28)
[2017-04-21] MEDS: Famotidine TAB* 20 MG PO SCH (19:29)
[2017-04-21] MEDS: Benzonatate CAP* 100 MG PO PRN (20:13)
[2017-04-22] MEDS: OLANzapine TAB* 2.5 MG PO PRN (02:18)
[2017-04-22] MEDS: Acetaminophen TAB* 325 MG PO PRN (04:54)
[2017-04-22] MEDS: Heparin VIAL(*) 5000 UNITS/ML VIAL (FIVE THOUSAND) SUBCUT SCH (05:00)
--- NOTE | 2017-04-22 07:59 | DS ---
CC: Dr. Wade * DISCHARGE SUMMARY: DATE OF ADMISSION: 04/19/17 DATE OF DISCHARGE: 04/21/17 PRIMARY CARE PROVIDER: Derrick Wade MD. ATTENDING PHYSICIAN DURING THIS ADMISSION: Yasemin Moffett DO.* (DICTATED BY CHANDRAKANT CAMERON NP) HOSPITAL COURSE: This is an 82-year-old female patient who presented with a complaint of confusion and weakness. Of significance, note, the patient had been hospitalized previously in March and then discharged to [facility]. The patient's family states that she became more chronically confused and then having hallucinations and being off balance. Staff at the group home decided to send her to the emergency department for evaluation because she seemed to be getting progressively worse and appeared to have some sort of right -handed deficit. They were concerned that she was having a cerebrovascular incident. Patient was admitted through the emergency department and CT of the head was negative for any acute stroke. Neurology was consulted and did not see any acute findings or acute pathology. It was felt by Neurology that this patient probably has some underlying dementia and is sundowning and these symptoms are getting more difficult to control in the setting of being acutely hospitalized and then being sent to a group home. Dr. Goodman felt that with some supportive care and some p.r.n. medications, the patient was placed on Zyprexa low dose for periods of agitation that she has had over the last 24 hours. She seems to be responding well and less agitated, and does have periods of very lucid moments where she is conversant and very aware of her surroundings. So, all of this combined, Dr. Goodman feels that if she is returned back to [facility] and can continue to rehabilitate there and then eventually get back home, these symptoms should start to resolve. The only finding that require some additional discussion was possibly a normal pressure hydrocephalus , which Dr. Goodman also stated that is something to be followed as an outpatient and that he would continue to see the patient after she is discharged; otherwise , he was signing off the case and she was cleared for discharged from his perspective. Vital signs on date of discharge, temperature 98.7, heart rate 77, respiratory rate 20, oxygen saturation 98% on room air, blood pressure 144/79. Laboratories: WBC is 8.3, RBC is 3.51, hemoglobin 11.6, hematocrit 34, platelets 342. Sodium 148, potassium 3.2, which was treated. Chloride 106, carbon dioxide 25, BUN 9, creatinine 0.61, GFR 93.4, glucose 130, calcium 8.8. Troponin was negative at 0.03. Brain MRI performed on 04/19/17 showed no restricted diffusion to suggest acute infarct, some small vessel chronic ischemia and ventriculomegaly that is disproportionate to the degree of sulcal atrophy, which may suggest the presence of a communicating hydrocephalus including a normal pressure hydrocephalus. PHYSICAL EXAMINATION: On the day of discharge, the patient is awake, alert, moderately confused, but able to be redirected. HEENT: The patient is atraumatic, normocephalic. PERRLA, with anicteric sclerae. Neck is supple, nontender. No JVD noted. No thyromegaly appreciated. No carotid bruits auscultated. Cardiovascular: S1, S2 present. Rate and rhythm are regular. Lungs are clear bilaterally to auscultation with no wheezing, rhonchi, or rales. Abdomen is soft, nontender, nondistended. Positive bowel sounds in all 4 quadrants. : Deferred. Musculoskeletal: There is no clubbing, no cyanosis , and no edema. She has gross motor function and sensation is intact. She has +2 distal pulses palpable. She is ambulatory. Neurologic: Baseline confusion with periods of gross lucidity. Usually, easily redirected, no periods of overt agitation noted. Psychiatric: She again became some anxious, but is easy to reorient. Also of significance, note, at admission the patient was complaining of general cough. Her chest x-ray was negative for any infiltrate or pneumonia ; however, she was placed on azithromycin for acute bronchitis. The patient has remained afebrile for the duration of her hospitalization. DISCHARGE DIAGNOSES: 1. Bronchitis. 2. Confusion secondary to toxic metabolic encephalopathy, unspecified delirium. 3. History of diabetes. 4. Hypertension. 5. Restless leg syndrome. 6. Rheumatoid arthritis. 7. Hypokalemia. DISCHARGE MEDICATIONS: Include: 1. Methotrexate 4 tablets by mouth weekly. 2. Guaifenesin 10 mL p.o. q.4h. as needed. 3. Melatonin 3 mg p.o. at bedtime. 4. MiraLAX 17 g as needed. 5. Tylenol 650 mg q.4 hours as needed. 6. Baclofen 10 mg 3 times a day as needed. 7. Terazosin 10 mg q.h.s. 8. Zantac 300 mg at bedtime. 9. Mirapex 0.5 mg three times a day. 10. Multivitamin 1 tablet daily. 11. Metformin 500 mg daily. 12. Oxybutynin 5 mg daily. 13. Baby aspirin 81 mg daily. 14. Vitamin C 1000 mg daily. 15. Leucovorin 5 mg by mouth weekly. The patient was discharged in stable condition back to [facility]. Of note as well, pillowcase cleaner did have a discussion with the patient's daughter regarding her care at [facility]. I do not know if the patient's family wishes her to be at a different facility; however, at this time, she is stable for discharge from the hospital. If the patient's family wishes to pursue other accommodations and care for the patient, they would be able to do that through case management at her receiving facility. CHANDRAKANT CAMERON NP [id number]/[facility] #: [id number] ALAYNA
[2017-04-22] MEDS: Pramipexole TAB* 0.5 MG PO SCH (08:04)
[2017-04-22] MEDS: Aspirin Low Dose CHEW TAB* 81 MG PO SCH (08:05)
[2017-04-22] MEDS: Oxybutynin TAB* 5 MG PO SCH (08:05)
[2017-04-22] MEDS: guaiFENesin ER TAB 600 MG PO SCH (08:05)
[2017-04-22] MEDS: Insulin LISPRO* 1 UNITS UNIT SUBCUT SCH (08:15)
[2017-04-22 09:19] VITALS: BP 159/99
== END 2017-04-22 10:00 ==
LOC: ED 16:10 → MEDTELE 19:40
PROVIDERS: ADMIT Hospitalist; ATTEND Internal Medicine
DX: J40 Bronchitis, not specified as acute or chronic (principal); R53.1 Weakness; R41.0 Disorientation, unspecified; R44.3 Hallucinations, unspecified; I10 Essential (primary) hypertension; E11.9 Type 2 diabetes mellitus without complications; G25.81 Restless legs syndrome; M06.9 Rheumatoid arthritis, unspecified; E87.6 Hypokalemia; Z79.82 Long term (current) use of aspirin
CPT/HCPCS: 36415; 70450; 70551; 71045; 80048; 80053; 80307; 80320; 80329; 81003; 82140; 82550; 83605; 83735; 83880; 84145; 84443; 84484; 85025; 87502; 93005; 96365; 96366; 96375; 99285; A9270-GY; G0378; G0480; J0456; J0696; J1630; J1644

== ENCOUNTER 2017-11-01 08:17 | Observation (INO) | payer MEDICARE ==
--- OUTSIDE RECORDS SUMMARY | 2017-11-01 08:28 | XMS REPORT ---
:1935 External Reference #:[id number] Author Organization [facility] Address [address] [place] [address] Phone [phone] Care Team Providers Name Role Phone Derrick Wade MD Primary Care Physician Unavailable Payers Type Date Identification Numbers Payment Provider Subscriber Medicare Primary Effective: Policy Number: Medicare Marcelino Avery 2000 [id number] PayID: [id number] [address] [place] [address] [facility] Part B Effective: [facility] Marcelino Hightower 2016 [id number] [facility] Bennie PayID: [id number] [address] [place] [address] Advance Directives Type Date Description Status Comment Other Directive 11/27/2016 Health Care Proxy Current and Verified Problems Date Description Provider Status Onset: 04/04/2016 Spinal stenosis of lumbar region Yossi Mc M.D. Active Onset: 04/04/2016 Synovial cyst Yossi Mc M.D. Active Onset: 11/27/2016 Rheumatoid arthritis Yves Gil M.D.,FACRadha Onset: 11/27/2016 Restless legs Yves Gil M.D.,CHER Onset: 11/27/2016 Gastroesophageal reflux disease Yves Gil M.D.,FACRadha Onset: 11/27/2016 Functional disorder of bladder Yves Gil M.D.,FACP Onset: 11/27/2016 Type 2 diabetes mellitus Yves Gil M.D.,FACP Onset: 05/08/2017 Altered mental status Justin Goodman M.D. Active Onset: 05/08/2017 Obstructive hydrocephalus Justin Goodman M.D. Active Onset: 06/20/2017 Essential hypertension Yves Gil M.D.,FACP Onset: 10/11/2017 Edema Jose D Archibald M.D., Active [facility] Onset: Confusional state Inactive Inactive: 06/20/2017 Onset: Hyponatremia Inactive Inactive: 06/20/2017 Onset: Hypertensive disorder Inactive Inactive: 06/20/2017 Onset: 10/11/2017 Difficulty breathing Jose D Archibald M.D., [place], PRINCESS Inactive Inactive: 10/14/2017 Onset: 10/11/2017 Chest pain Jose D Archibald M.D., [facility] Inactive Inactive: 10/14/2017 Family History Date Family Member(s) Problem(s) Comments General Heart Disease General Diabetes General Cancer General cerebral palsy Lorelei Avery Father Hypertension Father due to Stroke () Mother dementia Mother due to Parkinsons Disease () First Daughter Migraine Second Daughter Migraine Siblings 3 First Brother due to Alcohol Related () Second Brother Parkinson's Disease Third Brother Heart Disease Social History Type Date Description Comments Marital Status 11/27/2016 Lives With Daughter Occupation Retired Occupation Homemaker Cigarette Use Never Smoked Cigarettes ETOH Use 11/27/2016 Denies alcohol use Smoking Patient has never smoked Recreational Drug Use Denies Drug Use Daily Caffeine 11/27/2016 Consumes on average 1 cup of regular coffee per day Exercise Type/Frequency Does not exercise General Hx Text 4 kids Allergies, Adverse Reactions, Alerts Date Description Reaction Status Severity Comments 04/20/2017 Johnson Inhibitors Coughing active Moderate 04/20/2017 Naproxen Rash active Moderate 04/20/2017 Gabapentin Agitation active Severe 04/22/2017 Beta Adrenergic Blockers active 10/11/2017 Percocet active mental status changes per [facility] d/c summary 03/2804/04/2016 NKDA inactive Medications Medication Date Status Form Strength Qnty SIG Indications Ordering Provider Furosemide 10/14 Active Tablets 20mg 60tab 2 by mouth s every day D. [place], M.D.,FACP Losartan Potassium 10/11 Active Tablets 100mg 90tab 1 by mouth s every day Meng Wade M.D.,ANUP Pramipexole 06/20 Active Tablets 0.5mg 90tab 1 po in Dihydrochloride afternoon Meng Wade, and 2 M.D.,ANUP tablet by mouth at bedtime Terazosin HCL 06/20 Active Capsules 5mg 90cap Take 1 Capsule By Meng Wade, Mouth Once M.DAlirio,CHER Daily Actemra Active Solution IV monthly Unknown / Aspirin Active Tablets 81mg 1 by mouth Unknown / DR every day Acetaminophen Active Tablets 325mg 2 tablets Unknown / by mouth every 6 hours as needed for pain/fever Colace Active Capsules 100mg 1 Caps By Unknown /0000 Mouth Daily Vitamin C Active Tablets 1000mg 1 by mouth Unknown /0000 every day Multivitamin Adult Active Tablets 1 by mouth Unknown /0000 every day Ranitidine HCL Active Tablets 300mg 90tab 1 tab by Derrick / s mouth at Meng Wade, bedtime [facility] Prednisone Active Tablets 5mg 1 tab by Maday, /0000 mouth daily Heidi Figueredo Methotrexate Active Tablets 2.5mg 4 tbs by Unknown /0000 mouth every week Leucovorin Calcium Active Tablets 5mg 12tab 1 tab Unknown /0000 s weekly the day after mtx Cetirizine HCL Active Chewtabs 10mg 1 by mouth Unknown /0000 every day Miralax Active Packet [id number] 17 gram Unknown /0000 with h20 once a day Senna Active Tablets 8.6mg 60tab 1 by mouth Unknown / s every day as needed Candesartan 10/10 Hx Tablets 32mg 90tab 1 by mouth Cilexetil every day [facility]el Valente [facility] 10/11 Furosemide 08/28 Hx Tablets 40mg 30tab 1 by mouth s every day Roel Valente M.D.,[facility] 10/14 Furosemide 07/26 Hx Tablets 20mg 30tab 1 by mouth s every day Roel Valente M.D.,[facility] 08/28 Oxybutynin 07/10 Hx Tablets 5mg 30tab 1 by mouth Derrick Chloride ER 24HR s every day Roel Valente M.D.,[facility] 07/26 Toviaz 06/26 Hx Tablets 4mg 30tab 1 po qpm ER 24HR s Roel Valente M.D.,[facility] 07/09 Valsartan 06/20 Hx Tablets 320mg 90tab 1 by mouth s every day Roel Valente M.D.,[facility] 10/10 Vesicare 06/20 Hx Tablets 5mg 30tab 1 by mouth s every Roel Valente M.D.,[facility] 06/26 Klor-Con 10 05/17 Hx Tablets 10Meq 30tab 1 by mouth ER s every day Roel Valente M.D.,[facility] 05/29 Mucinex 04/21 Hx Tablets 600mg Twice Daily ER 12HR - 04/24 Zyprexa 04/21 Hx Tablets 2.5mg Q6H - 04/22 Robitussin DM 04/19 Hx Syrup 100-10mg/ Every 4 5ML Hours - 04/23 Glucophage 04/19 Hx Tablets 500mg Every Day - 04/22 Mirapex 04/19 Hx Tablets 1.5mg 1 tab by mouth at - bedtime 06/20 Acetaminophen ER 03/26 Hx Tablets 650mg 1 tab by ER mouth q4 - hours as 04/22 needed pain Baclofen 03/26 Hx Tablets 10mg take 1tab every 8 - hours as 04/22 needed for muscle spasm Docusate Sodium 03/26 Hx Capsules 100mg 2 cap at bedtime - 04/22 Polyethylene 03/26 Hx Granules 3350 17gm mix Unknown Glycol 3350 /2017 with 8 oz - of fluids 04/15 Mirapex 03/26 Hx Tablets 1.5mg take 1 tab Unknown by mouth - tid 04/22 Cephalexin 03/26 Hx Tablets 500mg 1 by mouth bid x 7 - days 04/02 Lioresal 03/26 Hx Tablets 10mg Three Times Unknown Daily - 04/24 Colace 03/20 Hx Capsules 100mg 60cap 1 by mouth s twice a day Roel Valente M.D.,[facility] 04/22 Macrobid 03/20 Hx Capsules 100mg 14cap 1 by mouth s twice a day Roel Valente M.D.,[facility] 03/27 Pramipexole 03/20 Hx Tablets 0.5mg 60tab 1/2 tab po Derrick Dihydrochloride s bid plus 1 Meng Wade, - tab po qhs M.DAlirio,[facility] 04/22 Metformin HCL 11/27 Hx Tablets 500mg 90tab take 1 s tablet by Meng Wade, - mouth once M.D.,[facility] 04/22 daily Percocet 06/29 Hx Tablets 5-325mg 40tab 1-2 po q4h Grayson Prado s jamien Roel Faust M.D. 10/15 Hydrocodone-Acetam 06/20 Hx Tablets 5-500mg 20tab 1 tab po Stevanovi inophen s q6h prn Roel hightower, 10/15 Heidi /2009 Diovan 04/21 Hx Tablets 320mg 1 PO qd Qutayb SAlirio - Maghaydah 07 , M.DAlirio Hydrochlorothiazid 04/21 Hx Tablets 25mg 1 PO qam Estuardotaybeh SAlirio - haydah 10/15 , Heidi /2009 Folic Acid 04/21 Hx Capsules 1mg one qd Qutayb S. - Maghaydah 10/15 , EveDAlirio /2009 Methotrexate 04/21 Hx Tablets 2.5mg 48tab 4/WK Estuardotayb s SAlirio - Maghaydah 08/Heidi Cruz Enbrel 04/21 Hx Solution 50mg one injection q S. - week Orlando 10/15 Heidi Hydrocodone 04/21 Hx 500mg 1-2 Tabs prn SAlirio [place] 10/15 Heidi Mirapex 04/21 Hx Tablets 0.25mg 30tab prn s Alirio Perry 10/15 Heidi Aspirin 04/21 Hx Tablets 81mg one PO qd DR Chris Perry 10/15 Heidi Centrum Silver Hx Tablets Adult 50 onc a day Unknown Adult 50+ /0000 - 04/22 Calcium Hx chew 1 Unknown /0000 tablet by - mouth two 04/22 times daily Vitamin C Hx Capsules 500mg 1 by mouth Unknown /0000 every day - 04/24 Methotrexate Hx Tablets 2.5mg 4 tbs by Unknown /0000 mouth every - week 04/24 Leucovorin Calcium Hx Tablets 5mg 1 tab Unknown /0000 weekly the - day after 04/24 Methotrexate /00 Hx Unknown /0000 - 11/27 Diovan HCT Hx Tablets 1 by mouth Unknown /0000 every day - 11/27 Terazosin HCL Hx Capsules 10mg 90cap 1 by mouth Derrick /0000 akbar every day Meng Wade, - at bedtime Heidi,[facility] 06/20 Folic Acid Hx Tablets 1mg 1 by mouth Unknown /0000 every day - 11/27 Pantoprazole Hx Tablets 40mg 1 by mouth Unknown Sodium /0000 every day - 11/27 Ranitidine HCL Hx Capsules 300mg 1 cap by Unknown /0000 mouth every - night 04/24 Pramipexole Hx Tablets 0.25mg take one Unknown Dihydrochloride /0000 tablet by - mouth twice 06/04 a day /2016 Metformin HCL Hx Tablets 500mg 1 by mouth Unknown /0000 twice a day - 11/27 Oxybutynin Hx Tablets 5mg take one Unknown Chloride /0000 tablet by - mouth twice 11/27 a day /2016 Tramadol HCL Hx Tablets 50mg 1-2 tablets Unknown /0000 every 6 - hours as 11/27 Oxycodone HCL Hx Capsules 1-2 tabs by Unknown /0000 mouth every - 4-6 hours 05/10 as needed pain Hydrocodone-Acetam Hx Tablets 5-325mg 45tab 1-2 tabs by Yossi cabrera /0000 s mouth every Alexandro, - 4- 6 hours M.D. 11/27 as needed pain Carbidopa-Levodopa Hx Tablets 25-100mg 270ta take three Brisa /0000 bs tablets by Endy, - mouth daily ORDER MANAGER 03/20 Oxybutynin Hx Tablets 5mg 90tab 1 by mouth Derrick Farias ER /0000 ER 24HR s every day Roel Valente M.D.,FACP 06/20 Percocet Hx Tablets 5-325mg 120ta one by Derrick /0000 bs mouth every Meng Wade, - 6 hours M.D.,FACP 04/03 Terazosin HCL Hx Capsules 5mg 1 by mouth Unknown /0000 every day - 04/24 Melatonin ER Hx Tablets 5mg 1 tablet at Unknown /0000 ER night - 10/10 Thera M Plus Hx Tablets [id number] Unknown /0000 - 04/24 Azithromycin Hx Tablets 500mg 2 tab one Unknown /0000 dose - 04/29 Baclofen Hx Tablets 10mg 30tab tab by Unknown /0000 s mouth three - times a day 06/20 as needed /2017 Tessalon Perles Hx Capsules 100mg 1-2 by Unknown /0000 mouth three - times a day 04/24 as needed /2017 Pepcid Hx Tablets 40mg 40 mg by Unknown /0000 mouth at - bed time 04/16 Guaifenesin DM Hx Tablets 400-20mg 10ml every Unknown /0000 4 hours as - needed 04/29 Enoxaparin Sodium Hx Solution 150mg/ml 150 mg sc Unknown /0000 twice a day - starting 04/29 the in the morning of 10/16/16 and finishing with the in the morning dose of 10/18/16. Humalog Hx Solution 100Unit/M 20uni as directed Unknown /0000 L ts - 04/28 Miralax Hx Packet [id number] dissolve 1 Unknown / teaspoonlul - powder in 8 07/23 onces water. take daily as needed Methotrexate Hx Tablets 2.5mg 4 Tabs PO Q Unknown /0000 7 Days - 07/26 Leucovorin Calcium Hx Tablets 5mg 1 Tab By Unknown /0000 Mouth - Q7days 07/26 Metformin HCL Hx Tablets 500mg 90tab take 1 tab Derrick /0000 s by mouth Meng Wade, - every day Heidi,FACP 08/28 Senna Laxative Hx Tablets 8.6mg 1 tab by Unknown /0000 mouth daily - as needed 07/23 Robitussin DM Hx Syrup 100-10mg/ 10ml every Unknown /0000 5ML 4-6 hours - 05/29 Immunizations CPT Code Status Date Vaccine Lot # [id number] Given 06/20/2017 Pneumococcal Conjugate Vaccine 13 Valent For [id number] Intramuscular Use 62585 Given 12/13/2016 Influenza Virus Vaccine, Quadrivalent, Split, Preservative Free 11745 Given 02/01/2015 Pneumonia Vaccine Vital Signs Date Vital Result Comment 10/22/2017 Height 62 inches 5'2" Weight 200.00 lb Heart Rate 99 /min BP Systolic Sitting 170 mmHg BP Diastolic Sitting 100 mmHg BP Systolic Recheck 170 mmHg BP Diastolic Recheck 88 mmHg Body Temperature 98.8 F O2 % BldC Oximetry 98 % BMI (Body Mass Index) 36.6 kg/m2 10/14/2017 Height 62 inches 5'2" Weight 198.00 lb Heart Rate 95 /min BP Systolic Sitting 170 mmHg BP Diastolic Sitting 88 mmHg BP Systolic Recheck 180 mmHg BP Diastolic Recheck 85 mmHg Body Temperature 97.9 F O2 % BldC Oximetry 97 % BMI (Body Mass Index) 36.2 kg/m2 10/11/2017 Height 62 inches 5'2" Weight 198.00 lb Heart Rate 99 /min BP Systolic Sitting 170 mmHg BP Diastolic Sitting 74 mmHg Pain Level 0 O2 % BldC Oximetry 98 % Ra BMI (Body Mass Index) 36.2 kg/m2 08/28/2017 Height 62 inches 5'2" Weight 191.00 lb Heart Rate 93 /min BP Systolic Sitting 160 mmHg BP Diastolic Sitting 84 mmHg Body Temperature 98.1 F O2 % BldC Oximetry 97 % BMI (Body Mass Index) 34.9 kg/m2 08/07/2017 Height 62 inches 5'2" Weight 185.12 lb Heart Rate 84 /min BP Systolic Sitting 136 mmHg BP Diastolic Sitting 80 mmHg Respiratory Rate 18 /min BMI (Body Mass Index) 33.9 kg/m2 07/26/2017 Height 62 inches 5'2" Weight 182.00 lb Heart Rate 88 /min BP Systolic Sitting 180 mmHg BP Diastolic Sitting 80 mmHg Body Temperature 97.4 F O2 % BldC Oximetry 98 % BMI (Body Mass Index) 33.3 kg/m2 06/20/2017 Height 62 inches 5'2" Weight 172.00 lb w/shoes Heart Rate 83 /min BP Systolic Sitting 150 mmHg BP Diastolic Sitting 72 mmHg BP Systolic Standing 124 mmHg BP Diastolic Standing 72 mmHg Body Temperature 97.6 F O2 % BldC Oximetry 98 % BMI (Body Mass Index) 31.5 kg/m2 05/08/2017 Height 62 inches 5'2" Weight 163.00 lb Heart Rate 79 /min BP Systolic Sitting 156 mmHg BP Diastolic Sitting 88 mmHg Respiratory Rate 18 /min O2 % BldC Oximetry 96 % BMI (Body Mass Index) 29.8 kg/m2 04/22/2017 Weight 163.00 lb Heart Rate 79 /min BP Systolic 159 mmHg BP Diastolic 99 mmHg Respiratory Rate 22 /min Body Temperature 98.2 F O2 % BldC Oximetry 97 % 04/20/2017 Height 62 inches BMI (Body Mass Index) 29.6 kg/m2 03/20/2017 Weight 169.00 lb Heart Rate 86 /min BP Systolic Sitting 160 mmHg BP Diastolic Sitting 84 mmHg Body Temperature 98.0 F O2 % BldC Oximetry 97 % 11/27/2016 Height 62 inches 5'2" Weight 174.50 lb Heart Rate 83 /min BP Systolic Sitting 150 mmHg BP Diastolic Sitting 68 mmHg BP Systolic Recheck 148 mmHg BP Diastolic Recheck 78 mmHg Body Temperature 98.4 F O2 % BldC Oximetry 98 % BMI (Body Mass Index) 31.9 kg/m2 07/20/2016 Height 62 inches 5'2" Weight 184.00 lb BP Systolic Sitting 130 mmHg BP Diastolic Sitting 80 mmHg Pain Level 0 BMI (Body Mass Index) 33.7 kg/m2 06/04/2016 Height 62 inches 5'2" Weight 184.00 lb Heart Rate 72 /min BP Systolic Sitting 154 mmHg BP Diastolic Sitting 80 mmHg Pain Level 2 BMI (Body Mass Index) 33.7 kg/m2 05/14/2016 Height 62 inches 5'2" Weight 184.00 lb Heart Rate 78 /min BP Systolic Sitting 126 mmHg BP Diastolic Sitting 80 mmHg Body Temperature 99.3 F Pain Level 8 BMI (Body Mass Index) 33.7 kg/m2 04/04/2016 Height 62 inches 5'2" Weight 184.00 lb Heart Rate 82 /min BP Systolic Sitting 156 mmHg BP Diastolic Sitting 84 mmHg Pain Level 8 BMI (Body Mass Index) 33.7 kg/m2 04/29/2015 Height 62 inches 5'2" Weight 190.00 lb Pain Level 0 BMI (Body Mass Index) 34.7 kg/m2 12/15/2014 Height 62 inches 5'2" Weight 190.00 lb Pain Level 4 BMI (Body Mass Index) 34.7 kg/m2 10/15/2014 Height 62 inches 5'2" Weight 190.00 lb Heart Rate 101 /min BP Systolic Sitting 145 mmHg BP Diastolic Sitting 87 mmHg Respiratory Rate 18 /min Pain Level 9 BMI (Body Mass Index) 34.7 kg/m2 04/21/2007 Height 62 inches 5'2" Weight 198.00 lb Heart Rate 76 /min BP Systolic Sitting 162 mmHg L BP Diastolic Sitting 90 mmHg L BMI (Body Mass Index) 36.2 kg/m2 Results Test Date Test Result H/L Range Note CBC Auto Diff 09/18/2017 White Blood Count 5.0 10^3/uL 3.5-10.8 Red Blood Count 3.65 10^6/uL Low 4.00-5.40 Hemoglobin 11.8 g/dL Low 12.0-16.0 Hematocrit 35 % 35-47 Mean Corpuscular Volume 94 fL 80-97 Mean Corpuscular Hemoglobin 33 pg High 27-31 Mean Corpuscular HGB Conc 34 g/dL 31-36 Red Cell Distribution Width 13 % 10.5-15 Platelet Count 217 10^3/uL 150-450 Mean Platelet Volume 8.3 um3 7.4-10.4 Abs Neutrophils 3.8 10^3/uL 1.5-7.7 Abs Lymphocytes 0.7 10^3/uL Low 1.0-4.8 Abs Monocytes 0.4 10^3/uL 0-0.8 Abs Eosinophils 0.1 10^3/uL 0-0.6 Abs Basophils 0 10^3/uL 0-0.2 Abs Nucleated RBC 0 10^3/uL Granulocyte % 75.4 % 38-83 Lymphocyte % 14.6 % Low 25-47 Monocyte % 7.3 % High 0-7 Eosinophil % 2.1 % 0-6 Basophil % 0.6 % 0-2 Nucleated Red Blood Cells % 0 Comp Metabolic Panel 09/18/2017 Sodium 137 mmol/L 135-145 Potassium 4.1 mmol/L 3.5-5.0 Chloride 102 mmol/L 101-111 Co2 Carbon Dioxide 25 mmol/L 22-32 Anion Gap 10 mmol/L 2-11 Glucose 134 mg/dL High 70-100 Blood Urea Nitrogen 14 mg/dL 6-24 Creatinine 0.73 mg/dL 0.51-0.95 BUN/Creatinine Ratio 19.2 8-20 Calcium 9.1 mg/dL 8.6-10.3 Total Protein 6.8 g/dL 6.4-8.9 Albumin 4.0 g/dL 3.2-5.2 Globulin 2.8 g/dL 2-4 Albumin/Globulin Ratio 1.4 1-3 Total Bilirubin 0.50 mg/dL 0.2-1.0 Alkaline Phosphatase 47 U/L 34-104 Alt 18 U/L 7-52 Ast 17 U/L 13-39 Egfr Non- 76.0 >60 Egfr 91.9 >60 1 Laboratory test finding 09/18/2017 B-Type Natriuretic Peptide BNP 31 pg/mL 2 TSH (Thyroid Stim Horm) 2.02 mcIU/mL 0.34-5.60 Protein Electrophoresis 09/18/2017 Total Protein(Pep) 6.8 g/dL 6.3 - 7.9 Albumin 3.5 g/dL 3.4-4.7 Alpha-1 Globulin 0.2 g/dL 0.1-0.3 Alpha-2 Globulin 1.0 g/dL 0.6-1.0 Beta Globulin 1.0 g/dL 0.7-1.2 Gamma Globulin 1.1 g/dL 0.6-1.6 Albumin/Globulin Ratio 1.07 Impression See Comment 3 Laboratory test finding 08/28/2017 Hemoglobin A1c 5.9 5-7 Basic Metabolic Panel 08/15/2017 Sodium 136 mmol/L Low 139-145 Potassium 4.2 mmol/L 3.5-5.0 Chloride 102 mmol/L 101-111 Co2 Carbon Dioxide 24 mmol/L 22-32 Anion Gap 10 mmol/L 2-11 Glucose 130 mg/dL High 70-100 Blood Urea Nitrogen 15 mg/dL 6-24 Creatinine 0.70 mg/dL 0.51-0.95 BUN/Creatinine Ratio 21.4 High 8-20 Calcium 9.1 mg/dL 8.6-10.3 Egfr Non- 79.7 >60 Egfr 102.5 >60 4 Laboratory test finding 08/15/2017 Osmolality Serum 304 mOsm/kg High 275- 295 Lipid Profile (Trig/Chol/HDL) 06/18/2017 Triglycerides 203 mg/dL 5 Cholesterol 211 mg/dL 6 HDL Cholesterol 45.5 mg/dL 7 LDL Cholesterol 125 mg/dL 8 Basic Metabolic Panel 06/18/2017 Sodium 133 mmol/L Low 139-145 Potassium 4.2 mmol/L 3.5-5.0 Chloride 98 mmol/L Low 101-111 Co2 Carbon Dioxide 27 mmol/L 22-32 Anion Gap 8 mmol/L 2-11 Glucose 112 mg/dL High 70-100 Blood Urea Nitrogen 15 mg/dL 6-24 Creatinine 0.73 mg/dL 0.51-0.95 BUN/Creatinine Ratio 20.5 High 8-20 Calcium 9.6 mg/dL 8.6-10.3 Egfr Non- 76.0 >60 Egfr 97.7 >60 9 Laboratory Studies 04/22/2017 Poc Glucose (mg/dL) 137 mg/dL High 70-100 Laboratory Studies 04/20/2017 Anion Gap 9 mmol/L 2-11 BUN/Creatinine Ratio 14.8 8-20 Blood Urea Nitrogen 9 mg/dL 6-24 Calcium Level 8.8 mg/dL 8.6-10.3 Carbon Dioxide Level 25 mmol/L 22-32 Chloride Level 106 mmol/L 101-111 Creatinine 0.61 mg/dL 0.51-0.95 Estimated GFR () 120.2 Estimated GFR (Non- 93.4 Glucose Level 130 mg/dL High 70-100 Potassium Level 3.2 mmol/L Low 3.5-5.0 Sodium Level 140 mmol/L 133-145 Troponin I 0.03 ng/mL Urine Drug SCR ED & 04/19/2017 Amphetamine Ur Screen None Detected None Detect Pain Clinic Barbiturates Urine Screen None Detected None Detect Benzodiazepine Urine Screen None Detected None Detect Urine Cannabinoids Screen None Detected None Detect Urine Cocaine Screen None Detected None Detect Urine Opiates Screen None Detected None Detect Urine Phencyclidine Screen None Detected None Detect 10 Urinalysis Profile 04/19/2017 Urine Color Yellow Urine Appearance Clear Urine Specific [place] 1.010 1.010-1.030 Urine pH 5.0 5-9 Urine Urobilinogen Negative Negative Urine Ketones Trace Negative Urine Protein Negative Negative Urine Leukocytes Negative Negative Urine Blood Negative Negative * * Negative 11 Urine Nitrite Negative Negative Urine Bilirubin Negative Negative Urine Glucose Negative Negative CBC Auto Diff 04/19/2017 White Blood Count 8.3 10^3/uL 3.5-10.8 Red Blood Count 3.51 10^6/uL Low 4.0-5.4 Hemoglobin 11.6 g/dL Low 12.0-16.0 Hematocrit 34 % Low 35-47 Mean Corpuscular Volume 97 fL 80-97 Mean Corpuscular Hemoglobin 33 pg High 27-31 Mean Corpuscular HGB Conc 34 g/dL 31-36 Red Cell Distribution Width 13 % 10.5-15 Platelet Count 342 10^3/uL 150-450 Mean Platelet Volume 8 um3 7.4-10.4 Abs Neutrophils 6.6 10^3/uL 1.5-7.7 Abs Lymphocytes 0.9 10^3/uL Low 1.0-4.8 Abs Monocytes 0.6 10^3/uL 0-0.8 Abs Eosinophils 0.1 10^3/uL 0-0.6 Abs Basophils 0 10^3/uL 0-0.2 Abs Nucleated RBC 0 10^3/uL Granulocyte % 80.1 % 38-83 Lymphocyte % 11.0 % Low 25-47 Monocyte % 7.6 % 1-9 Eosinophil % 0.9 % 0-6 Basophil % 0.4 % 0-2 Nucleated Red Blood Cells % 0.1 Laboratory test finding 04/19/2017 Ammonia 35 ?mol/L 16-53 Lactic Acid 0.8 mmol/L 0.5-2.0 12 Acetaminophen < 15 g/mL 13 Alcohol < 10 mg/dL <10 Comp Metabolic Panel 04/19/2017 Sodium 137 mmol/L 133-145 Potassium 3.5 mmol/L 3.5-5.0 Chloride 102 mmol/L 101-111 Co2 Carbon Dioxide 27 mmol/L 22-32 Anion Gap 8 mmol/L 2-11 Glucose 112 mg/dL High 70-100 Blood Urea Nitrogen 12 mg/dL 6-24 Creatinine 0.69 mg/dL 0.51-0.95 BUN/Creatinine Ratio 17.4 8-20 Calcium 9.5 mg/dL 8.6-10.3 Total Protein 7.1 g/dL 6.4-8.9 Albumin 4.0 g/dL 3.2-5.2 Globulin 3.1 g/dL 2-4 Albumin/Globulin Ratio 1.3 1-3 Total Bilirubin 0.80 mg/dL 0.2-1.0 Alkaline Phosphatase 46 U/L 34-104 Alt 12 U/L 7-52 Ast 15 U/L 13-39 Egfr Non- 81.1 >60 Egfr 104.2 >60 14 Laboratory test finding 04/19/2017 Magnesium 2.0 mg/dL 1.9-2.7 Creatine Kinase(CK) 50 U/L 10-223 Troponin-I (TnI) 0.04 ng/mL High <0.04 15 TSH (Thyroid Stim Horm) 1.13 mcIU/mL 0.34-5.60 B-Type Natriuretic Peptide BNP 39 pg/mL 16 Procalcitonin < 0.1 ng/mL <0.6 17 Laboratory Studies 04/19/2017 Absolute Basophils (auto) 0 10^3/ul 0-0.2 Absolute Eosinophils (auto) 0.1 10^3/ul 0-0.6 Absolute Lymphocytes (auto) 0.9 10^3/ul Low 1.0-4.8 Absolute Monocytes (auto) 0.6 10^3/ul 0-0.8 Absolute Neutrophils (auto) 6.6 10^3/ul 1.5-7.7 Alanine Aminotransferase (Alt/SGPT) 12 U/L 7-52 Albumin 4.0 g/dL 3.2-5.2 Albumin/Globulin Ratio 1.3 1-3 Alkaline Phosphatase 46 U/L 34-104 Ammonia 35 ??mol/L 16-53 Aspartate Amino Transf (Ast/Sgot) 15 U/L 13-39 B-Type Natriuretic Peptide 39 pg/mL Basophils (%) (Auto) 0.4 % 0-2 Eosinophils (%) (Auto) 0.9 % 0-6 Globulin 3.1 g/dL 2-4 Hematocrit 34 % Low 35-47 Hemoglobin 11.6 g/dL Low 12.0-16.0 Lactic Acid Level 0.8 mmol/L 0.5-2.0 Lymphocytes (%) (Auto) 11.0 % Low 25-47 Magnesium Level 2.0 mg/dL 1.9-2.7 Mean Corpuscular Hemoglobin 33 pg High 27-31 Mean Corpuscular Hemoglobin Concent 34 g/dL 31-36 Mean Corpuscular Volume 97 fL 80-97 Mean Platelet Volume 8 um3 7.4-10.4 Monocytes (%) (Auto) 7.6 % 1-9 Neutrophils (%) (Auto) 80.1 % 38-83 Nucleated RBC Absolute Count (auto) 0 10^3/ul Nucleated Red Blood Cells % 0.1 Platelet Count 342 10^3/ul 150-450 Red Blood Count 3.51 10^6/ul Low 4.0-5.4 Red Cell Distribution Width 13 % 10.5-15 Thyroid Stimulating Hormone (TSH) 1.13 mcIU/mL 0.34-5.60 Total Bilirubin 0.80 mg/dL 0.2-1.0 Total Creatine Kinase 50 U/L 10-223 Total Protein 7.1 g/dL 6.4-8.9 White Blood Count 8.3 10^3/ul 3.5-10.8 Laboratory Studies 03/23/2017 Urine Osmolality 651 mOsm/kg Urine Random Sodium 111 mmol/L Laboratory Studies 03/22/2017 Osmolality 251 mOsm/kg Low Comp Metabolic Panel 03/22/2017 Sodium 120 mmol/L Low 133-145 Potassium 3.8 mmol/L 3.5-5.0 Chloride 84 mmol/L Low 101-111 Co2 Carbon Dioxide 25 mmol/L 22-32 Anion Gap 11 mmol/L 2-11 Glucose 128 mg/dL High 70-100 Blood Urea Nitrogen 11 mg/dL 6-24 Creatinine 0.77 mg/dL 0.51-0.95 BUN/Creatinine Ratio 14.3 8-20 Calcium 9.9 mg/dL 8.6-10.3 Total Protein 6.9 g/dL 6.4-8.9 Albumin 4.5 g/dL 3.2-5.2 Globulin 2.4 g/dL 2-4 Albumin/Globulin Ratio 1.9 1-3 Total Bilirubin 0.90 mg/dL 0.2-1.0 Alkaline Phosphatase 43 U/L 34-104 Alt 29 U/L 7-52 Ast 27 U/L 13-39 Egfr Non- 71.6 >60 Egfr 92.1 >60 18 CBC Auto Diff 03/22/2017 White Blood Count 7.1 10^3/uL 3.5-10.8 Red Blood Count 3.53 10^6/uL Low 4.0-5.4 Hemoglobin 11.8 g/dL Low 12.0-16.0 Hematocrit 34 % Low 35-47 Mean Corpuscular Volume 96 fL 80-97 Mean Corpuscular Hemoglobin 34 pg High 27-31 Mean Corpuscular HGB Conc 35 g/dL 31-36 Red Cell Distribution Width 14 % 10.5-15 Platelet Count 308 10^3/uL 150-450 Mean Platelet Volume 7 um3 Low 7.4-10.4 Abs Neutrophils 5.4 10^3/uL 1.5-7.7 Abs Lymphocytes 1.0 10^3/uL 1.0-4.8 Abs Monocytes 0.8 10^3/uL 0-0.8 Abs Eosinophils 0 10^3/uL 0-0.6 Abs Basophils 0 10^3/uL 0-0.2 Abs Nucleated RBC 0 10^3/uL Granulocyte % 75.2 % 38-83 Lymphocyte % 13.4 % Low 25-47 Monocyte % 10.8 % High 1-9 Eosinophil % 0.2 % 0-6 Basophil % 0.4 % 0-2 Nucleated Red Blood Cells % 0 Laboratory test finding 03/22/2017 Hemoglobin A1c (Glyco 5.6 % 4.0-5.6 19 HGB) Urine Culture And 03/20/2017 Urine Culture SEE RESULT BELOW 20 Sensitivities Ua Routine 03/20/2017 Ua Specific [place] 1.020 Ua PH 5 Ua Color YELLOW Ua Appera CLOUDY W/SED Ua WBC ++ Ua Protein +30 Ua Glucose NORMAL Ua Ketones NEG Ua Bilirubin NEG Ua Urobilinogen NORMAL Ua Nitrite NEG Ua Occult Blood ABOUT 250 Urine Microalbumin Random 11/27/2016 Urine Creatinine 57.14 mg/dL Ur Microalbumin (mg/L) < 15.0 mg/L Urine Microalbumin/Creatinine TNP ug/mg <31 21 Laboratory test finding 05/03/2016 Point of Care Glucose 139 mg/dL High 74 -106 22 Laboratory test finding 05/03/2016 Point of Care Glucose 148 mg/dL High 74 -106 23 CBC No Diff 04/26/2016 White Blood Count 5.7 10^3/uL 3.5-10.8 Red Blood Count 3.80 10^6/uL Low 4.0-5.4 Hemoglobin 12.3 g/dL 12.0-16.0 Hematocrit 36 % 35-47 Mean Corpuscular Volume 95 fL 80-97 Mean Corpuscular Hemoglobin 32 pg High 27-31 Mean Corpuscular HGB Conc 34 g/dL 31-36 Red Cell Distribution Width 14 % 10.5-15 Platelet Count 209 10^3/uL 150-450 Mean Platelet Volume 8 um3 7.4-10.4 Type & Screen 04/26/2016 Patient Blood Type A Positive Antibody Screen NEGATIVE Basic Metabolic Panel 04/26/2016 Sodium 134 mmol/L 133-145 Potassium 4.0 mmol/L 3.5-5.0 Chloride 99 mmol/L Low 101-111 Co2 Carbon Dioxide 25 mmol/L 22-32 Anion Gap 10 mmol/L 2-11 Glucose 134 mg/dL High 70-100 Blood Urea Nitrogen 12 mg/dL 6-24 Creatinine 0.77 mg/dL 0.51-0.95 BUN/Creatinine Ratio 15.6 8-20 Calcium 9.7 mg/dL 8.6-10.3 Egfr Non- 71.6 >60 Egfr 92.1 >60 24 Surgical Pathology 07/12/2009 Surgical Pathology <SEE NOTE > 25 Type And Screen 07/06/2009 Patient Blood Type A POSITIVE 26 Antibody Screen NEGATIVE 26 Specimen Discard Date 07/20/09 26, 27 Basic Metabolic Panel 07/06/2009 Sodium 134 mmol/L Low 135-145 26 Potassium 3.6 mmol/L 3.5-5.0 26 Chloride 98 mmol/L Low 101-111 26 Co2 (Carbon Dioxide) 25.0 mmol/L 22-32 26 Anion Gap 11.0 mmol/L 2-11 26, 28 Glucose 109 mg/dL High 70-100 26, 29 BUN 7 mg/dL 6-24 26 Creatinine 0.70 mg/dL 0.50-1.40 26 One Over Creatinine 1.40 26 BUN/Creatinine Ratio 10.0 8-20 26 Calcium 9.7 mg/dL 8.1-9.9 26, 30 eGFR Non- 86.5 > 60 26 eGFR 104.6 > 60 26, 31 Laboratory test finding 07/06/2009 PTT (Aptt) 28.5 25.15-38.53 26, 32 Protime 07/06/2009 Inr 0.94 Low 0.97-1.03 26, 33 Protime 11.1 SEC Low 11.5-12.2 26, 34 CBC With Manual Diff 07/06/2009 White Blood Count 8.1 CUMM 4.8-10.8 26 Red Cell Count 3.70 CUMM Low 4.2-5.4 26 Hemoglobin 12.3 g/dL 12.0-16.0 26 Hematocrit 36 % 35-47 26 Mean Corpuscular Volume 98 um3 High 79-97 26 Mean Corpuscular Hemoglob 33 pg High 27-31 26 Mean Corpuscular HGB Cone 34 g/dL 32-36 26 Redcell Distribution WDTH 14 % 10.5-15 26 Platelet Count 302 CUMM 150-450 26 Mean Platelet Volume 8.3 um3 7.4-10.4 26 Polysegmented Neutrophil 80 % 38-83 26 Band Neutrophil 1 % 0-8 26 Lymphocyte 9 % Low 25-47 26 Monocyte 7 % 0-13 26 Eosenophil 2 % 0-6 26 Atypical Lymph 1 % 0-6 26 Absolute Neutrophil Count 6.5 26 RBC Morphology NORMAL 26 1 Because ethnic data is not always readily available, this report includes an eGFR for both -Americans and non- Americans. The National Kidney Disease Education Program (NKDEP) does not endorse the use of the MDRD equation for patients that are not between the ages of 18 and 70, are , have extremes of body size, muscle mass, or nutritional status, or are non- or non-. According to the National Kidney Foundation, irrespective of diagnosis, the stage of the disease is based on the level of kidney function: Stage Description GFR(mL/min/1.73 m(2)) 1 Kidney damage with normal or decreased GFR 90 2 Kidney damage with mild decrease in GFR 60-89 3 Moderate decrease in GFR 30-59 4 Severe decrease in GFR 15-29 5 Kidney failure <15 (or dialysis) 2 >100 to <200 pg/mL: likely compensated congestive heart failure (CHF) 200 to 400 pg/mL: likely moderate CHF >400 pg/mL: likely moderate to severe CHF 3 RESULT: No apparent monoclonal protein on serum electrophoresis. Test Performed by: [address] [address] 4 Because ethnic data is not always readily available, this report includes an eGFR for both -Americans and non- Americans. The National Kidney Disease Education Program (NKDEP) does not endorse the use of the MDRD equation for patients that are not between the ages of 18 and 70, are , have extremes of body size, muscle mass, or nutritional status, or are non- or non-. According to the National Kidney Foundation, irrespective of diagnosis, the stage of the disease is based on the level of kidney function: Stage Description GFR(mL/min/1.73 m(2)) 1 Kidney damage with normal or decreased GFR 90 2 Kidney damage with mild decrease in GFR 60-89 3 Moderate decrease in GFR 30-59 4 Severe decrease in GFR 15-29 5 Kidney failure <15 (or dialysis) 5 Desirable: <150 Borderline High: 150-199 High: 200-499 Very High: >500 6 Desirable: <200 Borderline High: 200-239 High: >239 7 Low: <40 Desirable: 40-60 High: >60 8 Desirable: <100 Near Optimal: 100-129 Borderline High: 130-159 High: 160-189 Very High: >189 9 Because ethnic data is not always readily available, this report includes an eGFR for both -Americans and non- Americans. The National Kidney Disease Education Program (NKDEP) does not endorse the use of the MDRD equation for patients that are not between the ages of 18 and 70, are , have extremes of body size, muscle mass, or nutritional status, or are non- or non-. According to the National Kidney Foundation, irrespective of diagnosis, the stage of the disease is based on the level of kidney function: Stage Description GFR(mL/min/1.73 m(2)) 1 Kidney damage with normal or decreased GFR 90 2 Kidney damage with mild decrease in GFR 60-89 3 Moderate decrease in GFR 30-59 4 Severe decrease in GFR 15-29 5 Kidney failure <15 (or dialysis) 10 The urine specimen was tested at the listed cutoffs: Drug class test level (ng/mL) Amphetamines 500 Barbiturates 200 Benzodiazepine metabolites 200 Cocaine metabolites 150 Cannabinoids 50 Opiates 300 Pcp 25 Specimen was received without chain of custody. Results should be used for medical purposes only. 11 *Ascorbic acid is present which may interfere with detection of blood. 12 [facility] Severe Sepsis and Septic Shock Management Bundle Measure requires all lactic acids initially measuring >2.0 mmol/L be repeated. 13 Therapeutic concentration: <50 ug/mL Toxic concentration: >120 ug/mL 14 Because ethnic data is not always readily available, this report includes an eGFR for both -Americans and non- Americans. The National Kidney Disease Education Program (NKDEP) does not endorse the use of the MDRD equation for patients that are not between the ages of 18 and 70, are , have extremes of body size, muscle mass, or nutritional status, or are non- or non-. According to the National Kidney Foundation, irrespective of diagnosis, the stage of the disease is based on the level of kidney function: Stage Description GFR(mL/min/1.73 m(2)) 1 Kidney damage with normal or decreased GFR 90 2 Kidney damage with mild decrease in GFR 60-89 3 Moderate decrease in GFR 30-59 4 Severe decrease in GFR 15-29 5 Kidney failure <15 (or dialysis) 15 Result TnIDx:0.04 Called to [id number] at: 17:21:13 by:[id number] Read back by: [id number] 16 >100 to <200 pg/mL: likely compensated congestive heart failure (CHF) 200 to 400 pg/mL: likely moderate CHF >400 pg/mL: likely moderate to severe CHF 17 Interpretive information available on [employer] Lab Test Catalog at [email or web address]testcatalog.org 18 Because ethnic data is not always readily available, this report includes an eGFR for both -Americans and non- Americans. The National Kidney Disease Education Program (NKDEP) does not endorse the use of the MDRD equation for patients that are not between the ages of 18 and 70, are , have extremes of body size, muscle mass, or nutritional status, or are non- or non-. According to the National Kidney Foundation, irrespective of diagnosis, the stage of the disease is based on the level of kidney function: Stage Description GFR(mL/min/1.73 m(2)) 1 Kidney damage with normal or decreased GFR 90 2 Kidney damage with mild decrease in GFR 60-89 3 Moderate decrease in GFR 30-59 4 Severe decrease in GFR 15-29 5 Kidney failure <15 (or dialysis) 19 Therapeutic target for the treatment of diabetes mellitus patients is <7% HBA1C, and in selective patients <6.0%. Please refer to [place] [employer] diabetic care guidelines for further information. 20 SEE RESULT BELOW Name: MARCELINO AVERY : [address]: Neal Wade MD Acct: [id number] Unit: [id number] AGE: 81 Location: [facility] Re03/20/17 SEX: F Status: REG REF SPEC: [id number] GÓMEZ: 03/20/[address]: Derrick Wade MD REQ: [id number] RECD: 03/20/17805 STATUS: COMP _ SOURCE: URINE SPDESC: ORDERED: Urine Culture COMMENTS: [id number] Urine Source: Random Procedure Result Reported Site Urine Culture Final 03/22/17- 0842 ML Organism 1 ESCHERICHIA COLI Mayo Count 10-25,000 (Moderate) CFU/ML 1. ESCHERICHIA COLI M.I.C. RX --------- ------ Ampicillin 16 I Cefazolin <=4 S Cefepime <=1 S Ceftriaxone <=1 S Ciprofloxacin <=0.25 S Gentamicin <=1 S Levofloxacin <=0.12 S Meropenem <=0.25 S Nitrofurantoin 32 S Tetracycline <=1 S Pipercillin/Tazobactam <=4 S Trimethoprim/Sulfamethoxazole <=20 S Amoxicillin/Clavulanic Acid 4 S Aztreonam <=1 S Contact the Microbiology Department for any additional antibiotic reporting. * ML - MAIN LAB ([facility]) . END OF REPORT * ML=Testing performed at Main Lab DEPARTMENT OF PATHOLOGY, [address] [place] [address] Lior Jiménez M.D. Director [facility] # [id number] 21 Unable to calculate due to low microalbumin 22 Carpet Yarn Winder Operator: [id number] ELIZALDE 23 Carpet Yarn Winder Operator: KATERINE MORALES 24 Because ethnic data is not always readily available, this report includes an eGFR for both -Americans and non- Americans. The National Kidney Disease Education Program (NKDEP) does not endorse the use of the MDRD equation for patients that are not between the ages of 18 and 70, are , have extremes of body size, muscle mass, or nutritional status, or are non- or non-. According to the National Kidney Foundation, irrespective of diagnosis, the stage of the disease is based on the level of kidney function: Stage Description GFR(mL/min/1.73 m(2)) 1 Kidney damage with normal or decreased GFR 90 2 Kidney damage with mild decrease in GFR 60-89 3 Moderate decrease in GFR 30-59 4 Severe decrease in GFR 15-29 5 Kidney failure <15 (or dialysis) 25 ---- RUN DATE: 07/14/09 [facility] NMI LIVE PAGE 1 RUN TIME: 1525 Specimen Inquiry RUN USER: INTERFACE -- [id number]: [facility] Re07/12/09 Age/Sex: 74/F Unit#: [id number] Location: SDS : 33 -- Specimen: [id number] Spec Date: 07/12/[address]: Grayson Nagel MD Spec Type: SURGICAL P Received: 07/13/0915 Copies to: SPECIMEN DISC L4-5 HISTORY PRE-OP DIAGNOSIS: Right L4-5 disc herniation GROSS DESCRIPTION The specimen is received in formalin labelled Marcelino Avery, Disc L4-5, and consists of multiple pineda-arvizu, soft tissue fragments measuring 0.7 x 0.4 x 0.1 cm. in aggregate. Submitted entirely, one cassette. DIAGNOSIS Intervertebral disc, L4-5, discectomy - Intervertebral disc material and bone with degenerative features. Signed Electronically by: LIOR JIMÉNEZ MD 07/14/09 1524 -- -- DEPARTMENT OF PATHOLOGY, [address] [place] [address] [facility] Permit #[id number] Lior Jiménez M.D. Director Gaurang Ricketts M.D. Pond Tender Dir kemal -- 26 [facility] 07/12 27 PREADMISSION TESTING SAMPLES FOR BLOOD BANK WILL BE HELD FOR 14 DAYS FROM THE DATE OF COLLECTION *IF* THE FOLLOWING CRITERIA ARE MET: 1) THE PATIENT HAS *NOT* BEEN IN THE LAST 3 MONTHS. 2) THE PATIENT HAS *NOT* BEEN TRANSFUSED IN THE LAST 3 MONTHS. PREADMISSION TESTING SAMPLES WILL *NOT* BE HELD FOR 14 DAYS FROM PATIENTS WHO IN THE LAST 3 MONTHS: 1) HAVE BEEN 2) HAVE BEEN TRANSFUSED THESE PATIENTS *MUST* BE COLLECTED WITHIN 3 DAYS OF THE SURGERY DATE. 28 Anion gap measurement may be of limited value in the presence of any alkalosis, especially in a combined acid base disorder. . 29 Note change in reference range as of 10/30/07. The change was based on recommendations from the [place] [employer]. 30 Please note change in reference range effective 07 . 31 Because ethnic data is not always readily available, this report includes an eGFR for both -Americans and non- Americans. The National Kidney Disease Education Program (NKDEP) does not endorse the use of the MDRD equation for patients that are not between the ages of 18 and 70, are , have extremes of body size, muscle mass, or nutritional status, or are non- or non-. According to the National Kidney Foundation, irrespective of diagnosis, the stage of the disease is based on the level of kidney function: Stage Description GFR(mL/min/1.73 m(2)) 1 Kidney damage with normal or decreased GFR 90 2 Kidney damage with mild decrease in GFR 60-89 3 Moderate decrease in GFR 30-59 4 Severe decrease in GFR 15-29 5 Kidney failure <15 (or dialysis) 32 PLEASE NOTE NEW REFERENCE RANGE EFFECTIVE 08. 33 Recommended INR for Patients on Oral Anticoagulants Prophylaxis 2.0 - 3.0 Treatment of thrombosis 2.0 - 3.0 Prevention of embolism 2.0 - 3.0 Prevention of embolism from prosthetic heart valves 2.5 - 3.5 34 DIAGNOSIS,TREATMENT,AND THERAPY MUST BE BASED ON THE INR VALUE ALONE. Procedures Date CPT Code Description Status 09/02/2017 17981 ECHO Transthoracic, Real-Time 2D With Doppler And Color Completed Flow 09/02/2017 95979 ECHO Transthoracic, Real-Time 2D With Doppler And Color Completed Flow 05/03/2016 46413 Dior/Facet/Foraminotomy;Ea Addl Segment; Cerv, Thora, Or Completed Lumbar 05/03/2016 85915 Dior/Facet/Foraminotomy;Ea Addl Segment; Cerv, Thora, Or Completed Lumbar 05/03/2016 30605 Dior/Facet/Foraminotomy;Vertebral Segment; Lumbar Completed 05/03/2016 20234 Dior/Facet/Foraminotomy;Vertebral Segment; Lumbar Completed 06/27/2015 Mammogram Completed 05/05/2010 Colonoscopy Completed 09/23/2009 85149 Rad Exam; Pelvis Completed 09/23/2009 33091 Rad Exam; Hip Unilat Completed 07/12/2009 63526 Laminotomy W/Decomp NRV RT,One Interspace,Lumbar Completed 04/21/2007 70148 EKG Tracing & Interpretation Completed 04/17/2007 78682 Selective Coronary Angioplasty Completed 04/17/2007 06563 S/I/R Inj Proc Vent And Or Atrial Completed 04/17/2007 37749 S/I/R Inj Proc Vent And Or Atrial Completed 04/17/2007 90583 Coronary Angiography Completed 04/17/2007 18333 Inj Proc LFT Vent/LFT Atrl Angio Completed 04/17/2007 71194 Inj Proc LFT Vent/LFT Atrl Angio Completed 04/17/2007 50852 Left Heart Catheterization Completed 04/15/2007 07908 Treadmill Interp/Report Only Completed 04/15/2007 96925 Stress Test Supervsn W/Out I/R Completed 04/15/2007 31218 Stress Test Supervsn W/Out I/R Completed 01/06/2004 Colonoscopy Completed Encounters Type Date Location Provider CPT E/M Dx Office Visit 10/11/2017 [facility], 56529 R06.00 1:30p [facility] AT Brandon Gordon, FAC, FASNC R07.9 R60.9 Office Visit 08/28/2017 2:10p [facility] Internal Medicine Derrick Wade, 23576 E11.9 - [place] Brett Gordon,FACP I50.9 R60.1 Office Visit 08/07/2017 3:00p [place] Justin Goodman, 45488 G91.9 [facility] Heidi R41.0 Office Visit 07/26/2017 9:20a [facility] Internal Medicine Derrick Wade, 12478 R60.1 - [place] rBett Gordon,FACP E87.1 N39.41 Office Visit 05/08/2017 3:00p [place] Justin Goodman, 23249 R41.82 [facility] Heidi G91.9 Office Visit 04/21/2017 2:28p [facility],ellen Clay 80868 R41.0 Hospitalists RAMBO Lazo R29.898 I10 E11.9 Office Visit 04/20/2017 1:44p [facility] Justin Goodman, 26016 R41.82 MShree R44.3 Office Visit 04/19/2017 2:22p [facility],ellen Smith, 27909 R41.0 Hospitalists D.OAlirio R29.898 I10 E11.9 Office Visit 03/27/2017 12:38p [facility],NAOMI Norris 12137 N30.00 Hospitalists E87.1 M06.9 E11.9 Office Visit 03/26/2017 12:37p [facility],NAOMI Norris 35944 N30.00 Hospitalists E87.1 E11.9 M06.9 Office Visit 03/25/2017 12:36p [facility],NAOMI Norris 30271 N30.00 Hospitalists E87.1 E11.9 M06.9 Office Visit 03/24/2017 12:36p [facility], NAOMI Abraham 16721 N30.00 Hospitalists M06.9 E11.9 E87.1 Office Visit 03/23/2017 12:35p [facility], Guadalupe Luis, 96090 N30.00 Hospitalists D.O. E87.1 M06.9 E11.9 Office Visit 03/20/2017 4:00p [facility] Internal Derrick Wdae, 48008 R10.31 Medicine - [place] Brett Gordon,FACP N39.0 G25.81 R30.0 Office Visit 11/27/2016 10:30a [facility] Internal Medicine Derrick Wade, 61241 M06.09 - Swetha Gordon,FACP M48.06 E11.9 H90.3 Office Visit 04/04/2016 9:15a Neurosurgery Services Yossi Mc, 64776 M48.06 Of Ruddy Gordon M71.30 Office Visit 04/29/2015 2:20p [facility], 92325 M05.872 Shaylee Gordon Office Visit 12/15/2014 2:30p [facility], 11327 M05.872 Shaylee Gordon Office Visit 10/15/2014 10:20a [facility], 77843 714.0 Shaylee Gordon Office Visit 11/17/2009 10:00a Neurosurgery Services Grayson Faust, 26245 724.2 Of Ruddy Gordon Office Visit 11/04/2009 10:30a [facility] Yordy [place]thing[place], 76273 739.4 Shaylee Grodon 726.5 Office Visit 09/23/2009 10:30a [facility] Yordy Worthington M.D. 92580 739.4 Shaylee 728.89 Office Visit 07/06/2009 2:00p [facility] Grayson Faust, 88286 722.10 Of Ruddy Gordon Office Visit 06/29/2009 11:30a [facility] Services Grayson Faust, 46190 722.10 Of [facility] Heidi Office Visit 06/23/2009 10:30a Neurosurgery Services Grayson TrujilloAlirio Dejesusshahlabaileyalvaro, 92051 722.10 Of [facility] Heidi Office Visit 04/21/2007 9:20a [facility] Jose Arteaga. 11733 794.31 Heidi Perry 786.50 401.0 786.05 Plan of Care Future Appointment(s):11/15/2017 8:30 am - HAILEE Cristobal at [facility] Internal Medicine - Haiigrgyn08/12/2018 8:45 am - Jose D Archibald M.D., FAC , FASNE at [facility]11/13/2017 4:00 pm - Justin Goodman M.D. at [place] [facility]10/22/2017 - Derrick Wade M.D., FACPM25.511 Pain in right shoulderComments:X-ray completed in office today. We will contact you with the results of your X-ray.I10 Essential (primary) hypertensionComments:Increase your Furosemide to 2 pills daily. Continue taking current Losartan as prescribed. Reduce salt in your diet.Goals:Blood pressure goal <140/90 in general. Blood pressure goal <150/90 in people older than 75. Blood pressure goal <130/85 in diabetic patients. Goal BMI is less than 25.M25.512 Pain in left shoulderComments:X-ray completed in office today. We will contact you with the results of your X-ray.M54.6 Pain in thoracic spineComments:We discussed possible causes of your symptoms including a possible compression fracture in the spine. We will contact you with the results of your X-ray.
[2017-11-01] MEDS ORDERED: Aspirin 81 mg CHEW TAB* 81 MG TAB.CHEW PO ONE ×2 (08:36→08:40)
--- NOTE | 2017-11-01 09:15 | RAD ---
HISTORY: chest pain COMPARISONS: April 19, 2017 VIEWS: 2: Frontal and lateral views of the chest. FINDINGS: CARDIOMEDIASTINAL SILHOUETTE: The cardiomediastinal silhouette is normal. FAISAL: The faisal are normal. PLEURA: The costophrenic angles are sharp. No pleural abnormalities are noted. LUNG PARENCHYMA: The lungs are clear. ABDOMEN: The upper abdomen is clear. There is no subphrenic gas. BONES AND SOFT TISSUES: Degenerative changes are noted along the spine. OTHER: None. IMPRESSION: NO ACTIVE CARDIOPULMONARY DISEASE.
[2017-11-01 09:40] LABS: ABS Basophils 0 10^3/ul (0-0.2); ABS Eosinophils 0.1 10^3/ul (0-0.6); ABS Lymphocytes 1.2 10^3/ul (1.0-4.8); ABS Monocytes 0.6 10^3/ul (0-0.8); ABS Neutrophils 4.2 10^3/ul (1.5-7.7); ABS Nucleated RBC 0 10^3/ul; Eosinophil % 1.2 % (0-6); Hematocrit 35 % (35-47); Hemoglobin 12.2 g/dl (12.0-16.0); Lymphocyte % 20.4 % (25-47); Mean Corpuscular HGB Conc 35 g/dl (31-36); Mean Corpuscular Hemoglobin 33 pg (27-31); Mean Corpuscular Volume 95 fL (80-97); Mean Platelet Volume 7.1 um3 (7.4-10.4); Nucleated Red Blood Cells % 0; Platelet Count 213 10^3/ul (150-450); Red Blood Count 3.68 10^6/ul (4.00-5.40); Red Cell Distribution Width 15 % (10.5-15); White Blood Count 6.1 10^3/ul (3.5-10.8)
[2017-11-01 09:50] LABS: EGFR Non-African American 79.7 (>60)
--- NOTE | 2017-11-01 10:33 | ED ---
HPI Chest Pain - HPI Summary HPI Summary: 82-year-old female with past medical history of high blood pressure and diabetes presents with chest pain since last night. States she's been having chest pain on and off for the past month. She states that last night the pain was more intense. It started when she went to bed. She states that it ended about two hours ago. States it was a pressure in the center of her chest. She denies any left arm pain or neck pain. She denies any back pain currently. She states that couple days ago she was having chest pressure and she had back pain at the same time. She states that the pain did not radiate through. She states that "if she placed a pillow to it it would feel better." she states that is does not radiate to the back currently. She denies any shortness breath. She denies a cough. No fevers. No bowel pain. No nausea and vomiting. She recently started Keflex for to rule out an infection in her legs. She has pitting edema to her aches. She states that she did take a double dose of Keflex by palpitations or diaphoresis. She does have history of GERD. She denies any bowel pain. No nausea or vomiting. nothing makes it better or worst. No blood in her stool. She has history of arthritis. dr pinon is her teletype adjuster. She sees him for her blood pressure. daughter states she can never get her blood pressure below 160 systolic and has been on multiple medications. she has an echo and stress test scheduled for nov. She has been having problems with edema in her legs. has lesions to legs with the edema. - History of Current Complaint Chief Complaint: EDChestPainROMI Time Seen by Provider: 11/01/17 08:26 Pain Intensity: 0 - Additional Pertinent History Primary Care Physician: [id number] - Allergy/Home Medications Allergies/Adverse Reactions: Allergies Allergy/AdvReac Type Severity Reaction Status Date / Time TARUN Inhibitors Allergy Intermediate Coughing Verified 04/20/17 01:08 naproxen [From Naprosyn] Allergy Intermediate Rash Verified 04/20/17 01:08 Beta-Blockers Allergy Fatigue Verified 04/20/17 01:08 (Beta-Adrenergic Bloc gabapentin AdvReac Severe Agitation Verified 04/20/17 01:08 PMH/Surg Hx/FS Hx/Imm Hx Endocrine/Hematology History: Reports: Hx Diabetes Denies: Hx Anticoagulant Therapy Cardiovascular History: Reports: Hx Hypertension Denies: Hx Pacemaker/ICD GI History: Reports: Hx Gastroesophageal Reflux Disease, Hx Hiatal Hernia History: Denies: Hx Renal Disease Musculoskeletal History: Reports: Hx Arthritis - RA, Hx Back Problems, Other Musculoskeletal History - spinal stenosis Sensory History: Reports: Hx Contacts or Glasses, Hx Hearing Aid, Hx Hearing Problem Denies: Hx Cataracts, Hx Eye Injury, Hx Eye Prosthesis, Hx Glaucoma, Hx Vision Problem Opthamlomology History: Reports: Hx Contacts or Glasses Denies: Hx Cataracts, Hx Eye Injury, Hx Eye Prosthesis, Hx Glaucoma, Hx Vision Problem Neurological History: Reports: Hx Nerve Disease - restless leg syndrome Denies: Hx Headaches, Hx Migraine, Hx Seizures Psychiatric History: Denies: Hx Panic Disorder - Cancer History Hx Chemotherapy: No Hx Radiation Therapy: No - Surgical History Surgery Procedure, Year, and Place: LT KNEE REPLACEMENT 28 YRS AGO. GALLBLADDER. LSP SURGERY L4-5 LAMINECTOMY 2009. BILATERAL CATARACTS Hx Anesthesia Reactions: No - Immunization History Date of Tetanus Vaccine: unk Date of Influenza Vaccine: unk Infectious Disease History: No Infectious Disease History: Denies: Hx Clostridium Difficile, Hx Hepatitis, Hx of Known/Suspected MRSA, Hx Shingles, Hx Tuberculosis, Traveled Outside the [place] in Last 30 Days - Family History Known Family History: Positive: Hypertension, Diabetes Negative: Cardiac Disease - Social History Alcohol Use: None Substance Use Type: Reports: None Smoking Status (MU): Never Smoked Tobacco Review of Systems Negative: Fever Positive: Chest Pain - resolved Negative: Shortness Of Breath, Cough Negative: Abdominal Pain, Vomiting, Nausea All Other Systems Reviewed And Are Negative: Yes Physical Exam Triage Information Reviewed: Yes Vital Signs On Initial Exam: Initial Vitals Temp Pulse Resp BP Pulse Ox 97.5 F 77 18 118/67 98 11/01/17 08:18 11/01/17 08:18 11/01/17 08:18 11/01/17 08:18 11/01/17 08:18 Vital Signs Reviewed: Yes Appearance: Positive: Well-Appearing Skin: Positive: Warm, Dry, Other - lesions on bilateral legs Head/Face: Positive: Normal Head/Face Inspection Eyes: Positive: Normal, Conjunctiva Clear ENT: Positive: Pharynx normal Respiratory/Lung Sounds: Positive: Clear to Auscultation, Breath Sounds Present Cardiovascular: Positive: Normal, RRR Abdomen Description: Positive: Nontender, Soft Bowel Sounds: Positive: Present Musculoskeletal: Positive: Strength/ROM Intact - lower extremity Neurological: Positive: Normal Psychiatric: Positive: Normal Diagnostics - Vital Signs Vital Signs Temp Pulse Resp BP Pulse Ox 11/01/17 09:30 70 19 194/110 97 11/01/17 09:01 72 18 98 11/01/17 09:00 76 19 193/91 97 11/01/17 08:30 80 21 182/78 98 11/01/17 08:29 80 25 98 11/01/17 08:18 97.5 F 77 18 118/67 98 - Laboratory Lab Results: Lab Results 11/01/17 11/01/17 11/01/17 Range/Units 09:20 09:20 09:20 WBC 6.1 (3.5-10.8) 10^3/ul RBC 3.68 L (4.00-5.40) 10^6/ul Hgb 12.2 (12.0-16.0) g/dl Hct 35 (35-47) % MCV 95 (80-97) fL MCH 33 H (27-31) pg MCHC 35 (31-36) g/dl RDW 15 (10.5-15) % Plt Count 213 (150-450) 10^3/ul MPV 7.1 L (7.4-10.4) um3 Neut % (Auto) 68.5 (38-83) % Lymph % (Auto) 20.4 L (25-47) % [place] % (Auto) 9.5 H (0-7) % Eos % (Auto) 1.2 (0-6) % Baso % (Auto) 0.4 (0-2) % Absolute Neuts (auto) 4.2 (1.5-7.7) 10^3/ul Absolute Lymphs (auto) 1.2 (1.0-4.8) 10^3/ul Absolute Monos (auto) 0.6 (0-0.8) 10^3/ul Absolute Eos (auto) 0.1 (0-0.6) 10^3/ul Absolute Basos (auto) 0 (0-0.2) 10^3/ul Absolute Nucleated RBC 0 10^3/ul Nucleated RBC % 0 D-Dimer, Quantitative (Less Than 230) ng/mL Sodium 132 L (135-145) mmol/L Potassium 3.6 (3.5-5.0) mmol/L Chloride 95 L (101-111) mmol/L Carbon Dioxide 28 (22-32) mmol/L Anion Gap 9 (2-11) mmol/L BUN 20 (6-24) mg/dL Creatinine 0.70 (0.51-0.95) mg/dL Est GFR ( Amer) 96.5 (>60) Est GFR (Non-Af Amer) 79.7 (>60) BUN/Creatinine Ratio 28.6 H (8-20) Glucose 113 H (70-100) mg/dL Lactic Acid 2.1 H* (0.5-2.0) mmol/L Calcium 9.2 (8.6-10.3) mg/dL Total Bilirubin 0.70 (0.2-1.0) mg/dL AST 17 (13-39) U/L ALT 22 (7-52) U/L Alkaline Phosphatase 64 (34-104) U/L Troponin I 0.06 H* (<0.04) ng/mL B-Natriuretic Peptide ( - 100) pg/mL Total Protein 6.8 (6.4-8.9) g/dL Albumin 4.1 (3.2-5.2) g/dL Globulin 2.7 (2-4) g/dL Albumin/Globulin Ratio 1.5 (1-3) 11/01/17 11/01/17 Range/Units 09:20 09:20 WBC (3.5-10.8) 10^3/ul RBC (4.00-5.40) 10^6/ul Hgb (12.0-16.0) g/dl Hct (35-47) % MCV (80-97) fL MCH (27-31) pg MCHC (31-36) g/dl RDW (10.5-15) % Plt Count (150-450) 10^3/ul MPV (7.4-10.4) um3 Neut % (Auto) (38-83) % Lymph % (Auto) (25-47) % [place] % (Auto) (0-7) % Eos % (Auto) (0-6) % Baso % (Auto) (0-2) % Absolute Neuts (auto) (1.5-7.7) 10^3/ul Absolute Lymphs (auto) (1.0-4.8) 10^3/ul Absolute Monos (auto) (0-0.8) 10^3/ul Absolute Eos (auto) (0-0.6) 10^3/ul Absolute Basos (auto) (0-0.2) 10^3/ul Absolute Nucleated RBC 10^3/ul Nucleated RBC % D-Dimer, Quantitative < 200 (Less Than 230) ng/mL Sodium (135-145) mmol/L Potassium (3.5-5.0) mmol/L Chloride (101-111) mmol/L Carbon Dioxide (22-32) mmol/L Anion Gap (2-11) mmol/L BUN (6-24) mg/dL Creatinine (0.51-0.95) mg/dL Est GFR ( Amer) (>60) Est GFR (Non-Af Amer) (>60) BUN/Creatinine Ratio (8-20) Glucose (70-100) mg/dL Lactic Acid (0.5-2.0) mmol/L Calcium (8.6-10.3) mg/dL Total Bilirubin (0.2-1.0) mg/dL AST (13-39) U/L ALT (7-52) U/L Alkaline Phosphatase (34-104) U/L Troponin I (<0.04) ng/mL B-Natriuretic Peptide 57 ( - 100) pg/mL Total Protein (6.4-8.9) g/dL Albumin (3.2-5.2) g/dL Globulin (2-4) g/dL Albumin/Globulin Ratio (1-3) Result Diagrams: 11/01/17 09:20 11/01/17 09:20 Lab Statement: Any lab studies that have been ordered have been reviewed, and results considered in the medical decision making process. - Radiology chest Xray Interpretation: No Acute Changes Radiology Interpretation Completed By: Radiologist - CT cta CT Interpretation: No Acute Changes CT Interpretation Completed By: Radiologist - EKG 1 Cardiac Rate: NL EKG Rhythm: Sinus Rhythm EKG Interpretation: sinus rhythm minimial ST elevation. EKG Comparison: No Significant Change 2 EKG Rhythm: Sinus Rhythm EKG Interpretation: sinus rhythm EKG Comparison: No Significant Change Re-Evaluation - Re-Evaluation First Eval Re-Evaluation Time: 11:07 Comment: still no pain Second Eval Re-Evaluation Time: 12:15 Comment: discussed with add meds for bp Chest Pain Course/Dx - Course Course Of Treatment: 82-year-old female with past medical history of high blood pressure and diabetes presents with chest pain since last night. States she's been having chest pain on and off for the past month. She states that last night the pain was more intense. It started when she went to bed. She states that it ended about two hours ago. States it was a pressure in the center of her chest. She denies any left arm pain or neck pain. She denies any back pain currently. She states that couple days ago she was having chest pressure and she had back pain at the same time. She states that the pain did not radiate through. She states that "if she placed a pillow to it it would feel better." she states that is does not radiate to the back currently. She denies any shortness breath. She denies a cough. No fevers. No bowel pain. No nausea and vomiting. She recently started Keflex for to rule out an infection in her legs. She has pitting edema to her aches. She states that she did take a double dose of Keflex by palpitations or diaphoresis. She does have history of GERD. She denies any bowel pain. No nausea or vomiting. nothing makes it better or worst. No blood in her stool. She has history of arthritis. dr pinon is her teletype adjuster. She sees him for her blood pressure. daughter states she can never get her blood pressure below 160 systolic and has been on multiple medications. she has an echo and stress test scheduled for nov. She has been having problems with edema in her legs. has lesions to legs with the edema. on exam lungs CTA. heart RRR. abd soft nontender. edema to bilateral legs with lesions that are not infected. ekg similiar to previous with minimial ST elevation in anterior leads. troponin .06. d-dimer neg. discussed with dr naik says to consult cardiology. discussed with dr zaidi and said add on caradizem, echo consider cath vs stress test from there. ekg 2nd sinus rhythmn similiar to previous with ST segments. dr naik agrees to admit. dr zaidi suggested adding on metoprolol and CTA. CTA normal. - Chest Pain Differential Diagnosis/HQI/PQRI: Acute VA, Angina, CHF, Pulmonary Embolism - Diagnoses Provider Diagnoses: Chest pain Discharge - Sign-Out/Discharge Documenting (check all that apply): Patient Departure - Discharge Plan Condition: Stable Disposition: ADMITTED TO [facility] - Billing Disposition and Condition Condition: STABLE Disposition: Admitted to [facility]
[2017-11-01] MEDS ORDERED: Diltiazem CD CAP* 180 MG PO ONE (11:01)
[2017-11-01] MEDS ORDERED: Metoprolol Tartrate TAB* 50 mg PO ONE (11:48)
[2017-11-01] MEDS ORDERED: Iodixanol* (CONTRAST) 320 MG/ML 100 ML SDV IV ONE ×2 (11:49→12:40)
[2017-11-01] MEDS ORDERED: Albuterol 2.5 MG/3 ML NEB.SOL* (0.083%) INH PRN (12:34)
[2017-11-01] MEDS ORDERED: Acetaminophen TAB* 325 MG PO PRN (12:34)
[2017-11-01] MEDS ORDERED: Ondansetron INJ* 2 MG/ML VIAL IV PRN (12:34)
[2017-11-01] MEDS ORDERED: Magnesium Hydroxide LIQ* 30 ML UDC PO PRN (12:34)
[2017-11-01] MEDS ORDERED: Al Hydrox/Mg Hydrox/Simet LIQ* 30 ML UDC PO PRN (12:34)
[2017-11-01] MEDS ORDERED: Baclofen TAB* 10 MG PO PRN (12:38)
[2017-11-01] MEDS ORDERED: Melatonin 3 MG TAB PO PRN (12:38)
[2017-11-01] MEDS ORDERED: GuaiFENesin DM* 5 ML UDC PO PRN (12:38)
[2017-11-01] MEDS ORDERED: Polyethylene Glycol 3350* 17 GM PACKET PO PRN (12:38)
[2017-11-01] MEDS ORDERED: OLANzapine TAB* 2.5 MG PO PRN (12:38)
[2017-11-01] MEDS ORDERED: Dextrose 50% Syringe 50 ML* 25 GM/50 ML SYRINGE IV PUSH PRN (12:40)
--- NOTE | 2017-11-01 12:54 | ECHO ---
Patient: MARCELINO CARMICHAEL [facility] Rec#: [id number] : 1935 Date: 11/01/2017 Age: 82y Height: 157.48 cm / 62.0 in Weight: 90.72 kg / 199.9 lbs Sex: F BSA: 1.91 Room#: -11 Admit Date#: 11/01/2017 Type: Inpatient Referring: Gwen Millan Reading: Blair Toribio MD Freelance Designer: Heather Vaz RDCS CC: Derrick Wade MD Transthoracic Echocardiogram Indication: Chest pain BP: 194/110 HR: 53 Rhythm: Bradycardia Findings History: HTN, DM, hiatal hernia. Technical Comments: The study quality is fair. Completed at 1210. Left Ventricle: The left ventricular chamber size is normal. Mild concentric left ventricular hypertrophy is observed. There is a prominent septal knuckle. There is normal left ventricular systolic function. The estimated ejection fraction is 55-60%. Abnormal left ventricular diastolic function is observed. Abnormal left ventricular diastolic filling is observed, consistent with impaired relaxation. Left Atrium: The left atrium is mildly dilated. Right Ventricle: Moderator Band present. The right ventricle is mildly dilated. The right ventricular global systolic function is low normal. Right Atrium: The right atrial cavity size is normal. Aortic Valve: The aortic valve is trileaflet. The aortic valve leaflets are mildly thickened. There is no evidence of aortic regurgitation. There is no evidence of aortic stenosis. Mitral Valve: There is mitral annular calcification. The mitral valve leaflets are mildly thickened. There is a trace of mitral regurgitation. There is no evidence of mitral stenosis. Tricuspid Valve: The tricuspid valve leaflets are normal. There is mild tricuspid regurgitation. Unable to estimate the right ventricular systolic pressure. There is no tricuspid stenosis. Pulmonic Valve: The pulmonic valve appears normal. There is a trace pulmonic regurgitation. There is no pulmonic stenosis. Pericardium: There is no significant pericardial effusion. A pericardial fat pad is visualized. Aorta: There is no dilatation of the ascending aorta. There is no dilatation of the aortic arch. The aortic root is normal in size. Pulmonary Artery: The main pulmonary artery is not well visualized. Venous: The inferior vena cava appears normal in size. There is a greater than 50% respiratory change in the inferior vena cava dimension. Conclusions Mild concentric left ventricular hypertrophy is observed. Abnormal left ventricular diastolic filling is observed, consistent with impaired relaxation. The estimated ejection fraction is 55-60%. There is normal left ventricular systolic function. The right ventricle is mildly dilated. The right ventricular global systolic function is low normal. The aortic valve leaflets are mildly thickened. There is a trace of mitral regurgitation. There is mild tricuspid regurgitation. Prior study of 08/2017 was nondiagnostic. Measurements Name Value Normal Range RVIDd (AP) 2D 3.7 cm (0.9 - 2.6) RVDdMajor (2D) 4.8 cm (2.2 - 4.4) RAd ISD 4CH 4.4 cm (3.4 - 4.9) RA (A4C)W 3.8 cm (2.9 - 4.6) IVSd (2D) 1.2 cm (0.6 - 1) LVPWd (2D) 1.1 cm (0.6 - 1) LVIDd (2D) 3.7 cm (3.6 - 5.4) LVIDs (2D) 2.7 cm - LV FS (2D) 28 % (25 - 45) Aortic Annulus 1.7 cm (1.4 - 2.6) Ao root diameter (2D) 2.8 cm (2.1 - 3.5) Ascending Ao 2.7 cm (2.1 - 3.4) Aortic arch 2.5 cm (1.8 - 3.4) LA dimension (AP) 2D 3.2 cm (2.3 - 3.8) LAd ISD 4CH 5.4 cm (2.9 - 5.3) LA ISD 4CH W 4.3 cm (2.5 - 4.5) Name Value Normal Range LA ESV SP 4CH (A/L) 78 ml - LA ESV SP 2CH (A/L) 61 ml - LA ESV BP (A/L) 69 ml - LA ESV BP (A/L) index 36 ml/m2 - LA ESV SP 4CH (MOD) 71 ml - LA ESV SP 2CH (MOD) 58 ml - Name Value Normal Range MV E-wave Vmax 1.01 m/sec - MV deceleration time 260.9 msec - MV A-wave Vmax 1.36 m/sec - MV E:A ratio 0.74 ratio - LV septal e' Vmax 0.05 m/sec - LV lateral e' Vmax 0.06 m/sec - LV E:e' septal ratio 20 ratio - LV E:e' lateral ratio 16.67 ratio - Name Value Normal Range AV Vmax 1.2 m/sec - AV VTI 24.49 cm - AV peak gradient 6.09 mmHg - AV mean gradient 2.92 mmHg - LVOT Vmax 0.88 m/sec - LVOT VTI 18.16 cm - LVOT peak gradient 3.11 mmHg - LVOT mean gradient 1.76 mmHg - CHUY Vmax 0.96 m/sec - Name Value Normal Range IVC diameter 1.8 cm - Name Value Normal Range PV Vmax 0.89 m/sec - PV peak gradient 3.21 mmHg -
--- NOTE | 2017-11-01 13:02 | RAD ---
INDICATION: Chest pain. Evaluate for aortic dissection. COMPARISON: None TECHNIQUE: Axial source images were obtained from the thoracic inlet to the hemidiaphragms following administration of [address] angiographic technique was utilized. Coronal and sagittal reconstructed images were acquired. CHEST FINDINGS: Neck/thyroid: The thyroid is heterogeneous and mildly prominent. Chest wall: There are no acute abnormalities of the bony thorax or chest wall. There is no supraclavicular, infraclavicular, or axillary lymphadenopathy. Lungs : There are no pulmonary parenchymal masses or infiltrates. The pulmonary interstitium appears normal. There are no endobronchial lesions. Cardiomediastinal structures: There is no CT evidence of acute pulmonary embolic disease. The heart is normal in size. There is no pericardial effusion. There is no evidence of thoracic aortic aneurysm or dissection. There is mild uncoiling of the thoracic aorta with elongation of the ascending aorta. There is no mediastinal or hilar adenopathy. The esophagus appears normal. Pleura : There are no pleural-based masses or effusions. Other: None. IMPRESSION: 1. No CT evidence of aortic aneurysm or dissection. 2. No CT evidence of acute pulmonary embolic disease. 3. Lungs clear. 4. Enlarged and heterogeneous thyroid. Suggest nonemergent follow-up thyroid sonography.
[2017-11-01] MEDS ORDERED: hydrALAZINE IV* 20 MG/ML VIAL IV SLOW PU PRN (14:00)
[2017-11-01] MEDS: Pramipexole TAB* 0.5 MG PO SCH ×2 (15:14→21:06)
[2017-11-01] MEDS: Heparin VIAL(*) 5000 UNITS/ML VIAL (FIVE THOUSAND) SUBCUT SCH ×2 (15:16→21:11)
--- NOTE | 2017-11-01 16:22 | CONS ---
CC: Dr. Wade; Dr. Archibald CARDIOLOGY CONSULTATION: DATE OF CONSULT: 11/01/17 CONSULTING PHYSICIAN: Dr. Bazan. REASON FOR EVALUATION: Chest pain, elevated troponin. HISTORY OF PRESENT ILLNESS: This is a very pleasant 82-year-old woman accompanied by her daughter, Meri. She has a longstanding history of hypertension and some edema and shortness of breath, as well as mild dementia and hyponatremia in the past. She saw Dr. Archibald recently on 10/11/17 for evaluation of progressive edema. She lives on her own and reports that last night when she went to about 9 o'clock she noticed that she has had chest pain that she describes as it hurts. She does not want to describe it further than that, but she did. There was some associated interscapular pain that was sharp. She thinks it may have been a little better with moving around, but she was not sure. The pain persisted on and off all night and when her daughter came to see her in the morning at 7:30, the patient told her about the pain. Blood pressure was elevated approximately 186/118. She gave her her morning medicines, which include losartan and she was brought to the emergency room. By the time she got to the emergency room, her pain was gone. Her initial troponin was mildly elevated at 0.06 and her sodium was low at 132. The patient denies chest discomfort or back discomfort now. She denied associated shortness of breath, but she says she is usually short of breath with minimal exertion using her walker. She also is limited by back pain. She is able to get around her house on the walker and occasionally will go to the supermarket, but stops frequently due to back pain and shortness of breath. She has had increasing edema over the last few months. Her diuretics were cut back because of the hyponatremia; however, she has recently developed some venous insufficiency ulcers. She denies syncope, palpitations, orthopnea. She does sleep propped up because of back pain. The patient was recently switched from valsartan to her recall to losartan try to manage her blood pressures. The patient also took ibuprofen and Tylenol last night at 9 p.m. with minimal improvement in her symptoms. 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 She is followed by Dr. Mc for normal pressure hydrocephalus. PAST SURGICAL HISTORY: Includes cholecystectomy, cataracts, 2 back surgeries, tooth extractions, tonsillectomy, carpal tunnel release on the left, left knee surgery. MEDICATIONS: Her medications at home include: 1. Metformin. 2. Mucinex. 3. Hytrin 5 mg a day. 4. Ranitidine 300 mg at bedtime. 5. Mirapex 0.5 mg t.i.d. 6. MiraLAX 17 g daily as needed. 7. Ditropan 5 mg q.a.m. 8. Zyprexa 2.5 mg q.6 p.r.n. 9. Methotrexate 4 tabs weekly. 10. Melatonin 3 mg at bedtime. 11. Leucovorin 5 mg weekly. 12. Guaifenesin as needed. 13. Baclofen 10 mg t.i.d. p.r.n. 14. Aspirin 81 mg a day. 15. Ascorbic acid 1000 mg a day. 16. Acetaminophen 650 mg q.4 p.r.n. ALLERGIES: Include TARUN INHIBITORS with a cough; NAPROSYN, although she took ibuprofen last night; GABAPENTIN; BETA-BLOCKERS, fatigue; and PERCOCET, mental status changes. FAMILY HISTORY: She had 3 brothers who were all , 1 had coronary disease. Father due to a stroke. Mother had Parkinson's and dementia. SOCIAL HISTORY: She lives on her own. She was in November 2016. 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 She drinks 2 cups of coffee a day, 1 bottle of soda a day. REVIEW OF SYSTEMS: Review of systems x10 was negative except as above. PHYSICAL EXAM: She is a well-developed, obese female, in no apparent distress. Blood pressure was 184/99 with a heart rate of 70, O2 sat 97% on room air. No significant JVD. Carotids 2+. Cardiac Exam: S1, S2. No clear murmurs, gallops, or rubs. Extraocular muscles intact. Sclerae anicteric. Abdomen: Obese. Exam limited due to obesity. Femoral pulses intact without bruits. Distal pulses intact. There is 1 to 2+ edema in the lower extremities with some venous stasis ulcers on the left leg. Chest was clear. No CVAT. Alert and oriented to place and person. DIAGNOSTIC STUDIES/LAB DATA: Labs include a sodium of 132, potassium of 3.6, BUN of 20, creatinine of 0.7. Lactic acid of 2.1, elevated troponin of 0.06. BNP of 57. D-dimer negative. White count 6.1, hemoglobin of 12.2, hematocrit of 35, platelet count of 213. EKG revealed normal sinus rhythm with some early repolarization changes anteriorly similar to the previous of April 2017. She had a cardiac catheterization 2007, which revealed normal LV function and normal coronaries. Her chest x-ray here revealed no active cardiopulmonary disease. She had an echo on 09/02/17, which was technically limited, unable to estimate the EF. IMPRESSION AND PLAN: My impression is that Ms. Avery has dyspnea and chest pain and back pain of unclear etiology with marked hypertension. She also has venous insufficiency. She has also had shortness of breath and edema, which may be on the basis of venous insufficiency and/or diastolic dysfunction with hypertensive heart disease, poorly controlled blood pressures. Ischemia is a possibility, although less likely given her negative cath a few years ago. Nevertheless, she is at risk for development of coronary disease. In addition, she had somewhat atypical chest pain radiating to her back, which raises the possibility of dissection in light of the presentation of extreme hypertension. For the time being, I would recommend the following. Discussed the case with Rosanne, nurse practitioner in the ER and the hospitalist Bags.. 1. would try to get better control of her blood pressure and suggest a trial of Cardizem to try to better control blood pressure. 2. would consider using a low dose of metoprolol 5 mg IV in the short term just to get her blood pressures down. 3. Consider obtaining a CT angio to rule out dissection, less likely pulmonary embolism. 4. would obtain an echocardiogram to evaluate for wall motion abnormalities. 5. Dr. Archibald was planning on doing a stress test and a PAULINE as an outpatient. I will defer further evaluation as an outpatient to him. 6. would consider using a low dose of diuretic to try to improve her intravascular volume and treat what may be diastolic dysfunction and dyspnea on the basis of diastolic dysfunction. 7. would recommend weight reduction and salt restriction. Further recommendations will depend on her clinical course. We will continue to rule her out with serial EKGs and troponins. The mild bump in troponin could be due to the hypertensive heart disease rather than a primary coronary event. [id number]/[facility] #: [id number] ALAYNA
[2017-11-01] MEDS: Insulin LISPRO* 1 UNITS UNIT SUBCUT SCH ×2 (16:44→21:09)
--- NOTE | 2017-11-01 18:41 | HP ---
CC: Dr. Derrick Wade; Dr. Jose D Archibald * ADMISSION HISTORY AND PHYSICAL: DATE OF ADMISSION: 11/01/17 PATIENT OF ATTENDING HOSPITALIST: Sherri Bazan MD * (DICTATED BY NAOMI CORREA) PRIMARY CARE PHYSICIAN: Derrick Wade MD PRIMARY OPERATING THEATRE TECHNICIAN: Jose D Archibald MD CHIEF COMPLAINT: Chest pain. HISTORY OF PRESENT ILLNESS: Mrs. Avery is an 82-year-old female who has past medical history significant for hypertension, type 2 diabetes mellitus, RLS, rheumatoid arthritis, and spinal stenosis who presented to the emergency room earlier today with complaints of intermittent chest pain for the past month. The patient notes that she has occasional chest discomfort, usually first thing in the morning when she gets up that radiate to her upper back. This has been happening intermittently for the past month or so with associated mild nausea, but denies any diaphoresis, arm or jaw pain, or headache or dizziness. The patient has no history of coronary artery disease in the past. She was seen lastly in the hospital back in early April of this year due to episodes of confusion and weakness that ruled out possibility of strokes or TIA. She has been seen by Dr. Archibald in the past due to history of hypertension and had episode of chest pain about 10 years ago for which she had a false positive stress test followed by cardiac catheterization in April 2007 that revealed normal clean coronary artery vessels. The patient was evaluated in the emergency room and had an EKG done that showed very minimal ST elevation as well as troponin elevated at 0.06. The patient had no concerns of any chest pain at the time of her admission in the emergency room. A cardiac consultation was obtained in the ED by Dr. Toribio who recommended admitting the patient for close observation. It is to be noted that the patient has had elevated blood pressure for the past few days that was recorded at residence at [facility]. Her daughter, Meri, who is present next to the patient in her room also tells me that her blood pressure has been running high for the past 2 weeks. She was seen by Dr. Wade most recently 2 weeks ago who advised some dietary modification. Given her ongoing symptoms, we were asked to see the patient for further evaluation and admission to telemetry to rule out any possibility of acute coronary syndrome. PAST MEDICAL HISTORY: As mentioned above significant for hypertension, type 2 diabetes mellitus, rheumatoid arthritis, RLS, GERD, spinal stenosis, and mild dementia. PAST SURGICAL HISTORY: Significant for decompressive lumbar laminectomy, tonsillectomy, diskectomy at L4-L5, laparoscopic cholecystectomy, left total knee replacement, left carpal tunnel release. MEDICATIONS: Her medications at home include: 1. Ascorbic acid 1000 mg p.o. daily. 2. Aspirin 81 mg p.o. daily. 3. Robitussin DM 10 mL p.o. q.4 hours as needed for cough. 4. Leucovorin 5 mg p.o. weekly. 5. Glucophage 500 mg p.o. daily. 6. Methotrexate 10 mg p.o. q. weekly. 7. Multivitamins with mineral 1 tablet p.o. q. daily. 8. Ditropan 5 mg p.o. daily. 9. Mirapex 0.5 mg p.o. t.i.d. 10. Zantac 300 mg p.o. q.h.s. 11. Terazosin 10 mg p.o. q.h.s. 12. Tylenol 650 mg q.4 hours as needed for fever or pain. 13. Baclofen 10 mg p.o. t.i.d. 14. Zyprexa 2.5 mg p.o. q.6 hours as needed for agitation and anxiety. 15. MiraLAX 17 g p.o. daily. ALLERGIES: Multiple including TARUN INHIBITORS, NAPROXEN, BETA-BLOCKERS, and GABAPENTIN. SOCIAL HISTORY: The patient is a nonsmoker who does not drink alcohol. She resides at [facility]. Her daughter, Meri, is her healthcare proxy carrier. 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 FAMILY HISTORY: Father with history of CVA and her mother had history of Parkinson's disease and dementia. REVIEW OF SYSTEMS: See HPI. Otherwise, 12-point review of systems were negative and they were essentially negative. PHYSICAL EXAMINATION GENERAL: She is a pleasant elderly female, appears comfortable and in no acute distress or discomfort at the time of admission. VITAL SIGNS: Most recent set of vitals with temperature of 97.5, heart rate of 72, blood pressure of 181/99, respirations of 19 with O2 sats of 95% on room air. HEENT: Head is normocephalic, atraumatic. Sclerae are anicteric. PERRLA. EOMs intact. Oropharynx is pink and moist. NECK: Supple. Trachea midline. No cervical adenopathy, thyromegaly or JVD. LUNGS: Clear to auscultation bilaterally. HEART: Regular rate and rhythm. Normal S1 and S2 without rubs, murmurs, or gallops. BACK: With normal curvature. No CVA tenderness. BREASTS: Exam deferred at this time. ABDOMEN: Soft, round, and obese, nontender and nondistended. There are hernias , masses, or hepatosplenomegaly. RECTAL: Exam deferred at this time. EXTREMITIES: Without cyanosis or clubbing. There is 1+ bilateral lower extremity edema with small area of venous stasis ulcer noted on the left side with no significant erythema or induration noted. NEUROLOGIC: She is awake, alert and oriented x4. Tongue is midline. Hand commercial service technician equal bilaterally and sensation is intact throughout. LABORATORY WORKUP: CBC with white count of 6,000, hemoglobin 12.2, hematocrit of 35 and platelets of 213. Her D-dimer was less than 200. Chemistry panel with sodium of 132, potassium 3.6, chloride 95, CO2 28, BUN of 20 and creatinine of 0.7. Glucose is 113. Lactic acid slightly elevated at 2.1. Her troponin first draw is 0.06, 3 hours later second draw is 0.06 as well. Her BNP was in normal limits at 57. LFTs are otherwise within normal limits. ACCESSORY DIAGNOSTIC DATA: Chest x-ray with no active cardiopulmonary disease and EKG done showing minimal ST elevation at the anterior leads. ASSESSMENT AND PLAN: 1. Chest pain. The patient had history of similar complaints years ago for which she had an extensive cardiac workup including a stress test that came back false positive leading to cardiac catheterization in April 2007 with clean coronary arteries. Her symptoms and pattern of her chest pain does not appear to be related to any acute coronary syndrome; however, given her EKG findings and elevated troponin, the patient will be admitted for close monitoring at telemetry unit. Repeat serial troponin and EKG in the morning. I have discussed the case with Dr. Toribio regarding possibility of stress testing ; however, given the fact that the patient is admitted to on a Saturday, it will not be available until the following Saturday meaning that she will be admitted over the weekend. She appears to be hypertensive at this time and it is thought that her hypertension could be a factor leading to demand ischemia causing her chest pain and elevated troponin. Diltiazem dose was given in the emergency room and we might consider IV Lopressor a single dose as needed as well as IV Lasix. She does not appear to be in congestive heart failure right now and her BMP is essentially normal. Again, I talked to the patient and her daughter about the possibility of extending her stay over the weekend if it is thought that stress test is needed on Saturday. She appears to be comfortable and stable at this time. We will provide nitroglycerin and morphine as needed if chest pain arise, which I believe it could be related to her known spine degenerative disease. We will keep close observation of her at telemetry. 2. Hypertension. The patient's blood pressure is elevated and has been also elevated at the last admission she was here back in April of this year. I will continue her blood pressure medication and we will add diltiazem at this time, possibly add a beta-justin; however, she seemed to be allergic to it and I will investigate what sort of allergy she had to beta-justin in the past and if it is a true allergy, I might even introduce a low dose of Lasix given her lower extremity edema; however, she does not seem to be in heart failure at this time. 3. Type diabetes mellitus. We will hold her metformin and place her on glucose checks q.a.c. and q.h.s. with lispro sliding scale coverage. 4. Rheumatoid arthritis. We will continue to hold her methotrexate and leucovorin since she is not even scheduled for her weekly dose in the next 3 to 4 days. 5. Restless legs syndrome. We will continue her Mirapex for now. 6. DVT prophylaxis. The patient is a high risk with score of 4 and will be covered with subcu heparin 5000 units q.8 hours. 7. Code status. She wishes to be a DNR. 8. Disposition. Admit to telemetry unit for close observation, control of hypertension and rule out acute coronary syndrome. I will review recommendation by sales executive insurance for further care of this patient. I have discussed the case with my attending, Dr. Bazan who agreed to plan of care. NAOMI CORREA [id number]/[facility] #: [id number] ALAYNA
--- NOTE | 2017-11-01 19:23 | HP ---
HISTORY AND PHYSICAL: ADDENDUM: The case was discussed and reviewed with NAOMI Anders. Ms. Avery is an 82-year-old lady with a past medical history of hypertension, restless legs syndrome, type 2 diabetes, spinal stenosis, rheumatoid arthritis, who presented to the emergency room with complaints of chest pain. She had a CTA of the chest in the emergency room that was negative for dissection and PE and it showed only an enlarged and heterogeneous thyroid. She had minimally elevated troponin of 0.06, but she was found to have uncontrolled hypertension with systolic in the 200s. She will be admitted for further blood pressure control and cardiac workup including an echocardiogram. [id number]/[facility] #: [id number] ALAYNA
[2017-11-01] MEDS: oxyCODONE/Acetamin 5/325 MG* TAB PO PRN (19:36)
[2017-11-01] MEDS ORDERED: Terazosin CAP* 5 MG PO SCH (21:00)
[2017-11-01] MEDS ORDERED: Famotidine TAB* 20 MG PO SCH (21:00)
[2017-11-01] MEDS ORDERED: Docusate CAP* 100 MG PO SCH (21:00)
[2017-11-01] MEDS: guaiFENesin ER TAB 600 MG PO SCH (21:06)
[2017-11-01] MEDS: predniSONE TAB* 10 MG PO SCH (21:06)
[2017-11-02] MEDS: Heparin VIAL(*) 5000 UNITS/ML VIAL (FIVE THOUSAND) SUBCUT SCH ×2 (05:28→14:07)
[2017-11-02 05:37] LABS: ABS Basophils 0 10^3/ul (0-0.2); ABS Eosinophils 0 10^3/ul (0-0.6); ABS Lymphocytes 0.7 10^3/ul (1.0-4.8); ABS Monocytes 0.4 10^3/ul (0-0.8); ABS Neutrophils 4.1 10^3/ul (1.5-7.7); ABS Nucleated RBC 0 10^3/ul; Eosinophil % 0.8 % (0-6); Hematocrit 33 % (35-47); Hemoglobin 11.4 g/dl (12.0-16.0); Mean Corpuscular HGB Conc 34 g/dl (31-36); Mean Corpuscular Hemoglobin 33 pg (27-31); Mean Corpuscular Volume 95 fL (80-97); Mean Platelet Volume 7.4 um3 (7.4-10.4); Nucleated Red Blood Cells % 0; Platelet Count 208 10^3/ul (150-450); Red Blood Count 3.49 10^6/ul (4.00-5.40); Red Cell Distribution Width 15 % (10.5-15); White Blood Count 5.3 10^3/ul (3.5-10.8)
[2017-11-02 05:54] LABS: EGFR Non-African American 74.8 (>60)
[2017-11-02] MEDS ORDERED: Oxybutynin TAB* 5 MG PO SCH (09:00)
[2017-11-02] MEDS ORDERED: Aspirin 81 mg CHEW TAB* 81 MG TAB.CHEW PO SCH (09:00)
[2017-11-02] MEDS ORDERED: Docusate CAP* 100 MG PO SCH (09:00)
[2017-11-02] MEDS: Insulin LISPRO* 1 UNITS UNIT SUBCUT SCH ×2 (09:25→14:06)
[2017-11-02] MEDS: oxyCODONE/Acetamin 5/325 MG* TAB PO PRN (09:32)
[2017-11-02] MEDS: Pramipexole TAB* 0.5 MG PO SCH ×2 (09:32→14:07)
[2017-11-02] MEDS: guaiFENesin ER TAB 600 MG PO SCH (09:33)
[2017-11-02] MEDS: predniSONE TAB* 10 MG PO SCH (09:33)
--- NOTE | 2017-11-02 10:13 | PN ---
Progress Note - Progress Note Date of Service: 11/02/17 Note: Discharge Progress Note Primary Diagnosis: Chest pain due to uncontrolled HTN Secondary diagnosis: suspected diastolic CHF Hypertension spinal stenosis Type 2 diabetes rheumatoid arthritis restless legs GERD mild dementia left shoulder pain goiter, needs outpatient U/S Consultations: Dr. Toribio of cardiology Procedures: none Pertinent lab/radiology testing: Laboratory Tests 11/01/17 11/01/17 11/01/17 09:20 09:20 09:20 Hgb Hct D-Dimer, Quantitative < 200 Sodium Chloride Glucose Lactic Acid 2.1 H* Troponin I 0.06 H* LDL Cholesterol 11/01/17 11/01/17 11/02/17 11:53 15:11 05:09 Hgb 11.4 L Hct 33 L D-Dimer, Quantitative Sodium Chloride Glucose Lactic Acid Troponin I 0.06 H* 0.06 H* LDL Cholesterol 11/02/17 05:09 Hgb Hct D-Dimer, Quantitative Sodium 134 L Chloride 100 L Glucose 139 H Lactic Acid Troponin I LDL Cholesterol 118 CTA chest: no PE, heterogeneous thyroid echocardiogram: EF 60%, LV diastolic function Tests pending upon discharge: none Discharge Physical Exam: Selected Entries 11/01/17 11/02/17 11/02/17 23:37 03:39 08:09 Temperature 36.7 C Pulse Rate 78 Respiratory 16 Rate Blood Pressure 148/68 164/71 186/63 (mmHg) O2 Sat by Pulse 98 Oximetry Alert, no distress Lungs: clear, no rales Heart: regular, 1/6 systolic murmur 1+ edema bilat LE
[2017-11-02] MEDS ORDERED: Valsartan TAB* 160 MG PO SCH (11:00)
[2017-11-02 11:14] VITALS: BP 146/58
--- NOTE | 2017-11-03 00:10 | DS ---
CC: Dr. Archibald * DISCHARGE SUMMARY: DATE OF ADMISSION: 11/01/17 DATE OF DISCHARGE: 11/02/17 PRIMARY DIAGNOSIS: Chest pain due to uncontrolled hypertension. SECONDARY DIAGNOSES: 1. Suspect diastolic congestive heart failure. 2. Hypertension. 3. Spinal stenosis. 4. Type 2 diabetes. 5. Rheumatoid arthritis. 6. Restless legs syndrome. 7. Gastroesophageal reflux disease. 8. Mild dementia. 9. Left shoulder pain. 10. Goiter. MEDICATIONS ON DISCHARGE: 1. Vitamin C 1000 mg per day. 2. Aspirin 81 mg p.o. q. day. 3. Colace 100 mg p.o. q. day. 4. Furosemide 40 mg p.o. q.a.m. 5. Leucovorin 5 mg tab 1 weekly. 6. Methotrexate 2.5 mg tab 4 tabs weekly. 7. Multivitamin 1 tab p.o. q.p.m. 8. Zantac 300 mg p.o. q.p.m. 9. Senokot 1 tab p.o. q. day. 10. Terazosin 5 mg p.o. q.p.m. 11. Acetaminophen 650 mg p.o. q.4 hours as needed for pain. 12. Felodipine 2.5 mg p.o. q.a.m. 13. Irbesartan 300 mg p.o. q.a.m. 14. Milk of Magnesia as needed for constipation. 15. Melatonin 3 mg p.o. q.p.m. as needed for insomnia. 16. Oxycodone/acetaminophen 5/325 one tab p.o. q.4 hours p.r.n. for left shoulder pain. 17. MiraLax 17 g p.o. q. day p.r.n. constipation. 18. Mirapex 0.5 mg p.o. t.i.d. for restless legs. 19. Prednisone 5 mg p.o. q. day. 20. Actemra intravenous monthly. HOSPITAL COURSE: The patient was admitted with complaints of chest discomfort that radiated to her back. She states it has been happening intermittently for a month or so. The patient has had a history of a positive stress test, followed by cardiac catheterization 10 years ago. The catheterization showing clean coronary vessels. The patient has seen outpatient cane packer, Dr. Archibald , in recent months and had a planned transesophageal echo and nuclear stress test over the next few weeks. This was due to an nondiagnostic echocardiogram and concerns about new peripheral edema and possible CHF. The patient's chest pain mostly resolved in the hospital and her significant test included troponin of 0.06 three times in a row. She had a sodium of 134, glucose 139. Her D- dimer was less than 200. Her white count was 5.3, hemoglobin 11.4, hematocrit 33%, platelets 208. She had another echocardiogram that this time was more diagnostic and showed an ejection fraction of 55% to 60%, normal LV systolic function, and mild concentric LVH with some diastolic relaxation impairment. There were no significant valve problems. She also had a CT angiogram of her chest, which showed no pulmonary emboli. She did have an enlarged heterogenous thyroid, for which outpatient thyroid ultrasound is advised. The patient's blood pressure has been significantly elevated in the office in the last several weeks partly due to suspected noncompliance of low sodium diet and also because of recall of the drug valsartan where she was then switched to a less effective losartan. During the hospital stay, we switched her to irbesartan and added 2.5 of felodipine to her regimen. She is also to continue furosemide 40 mg p.o. q.a.m. for blood pressure and edema. DISPOSITION: To home where she is independent and lives with her daughter. FOLLOWUP: Her followup should be with primary care office and with Dr. Archibald as already scheduled. ACTIVITY: Should be as tolerated. DIET: Low salt. She will complete a thyroid ultrasound as an outpatient as well as the planned nuclear stress test. [id number]/[facility] #: [id number] ALAYNA
[2017-11-03] MEDS ORDERED: amLODIPine TAB* 5 MG PO SCH (09:00)
[2017-11-03] MEDS ORDERED: predniSONE TAB* 5 MG PO SCH (09:00)
== END 2017-11-02 16:05 | disposition home or self-care (01) ==
LOC: ED 08:17 → MEDTELE 12:34
PROVIDERS: ADMIT Hospitalist; ATTEND Internal Medicine
DX: R07.9 Chest pain, unspecified (principal); I10 Essential (primary) hypertension; E11.9 Type 2 diabetes mellitus without complications; M06.9 Rheumatoid arthritis, unspecified; G25.81 Restless legs syndrome; K21.9 Gastro-esophageal reflux disease without esophagitis; F03.90 Unspecified dementia, unspecified severity, without behavioral disturbance, psychotic disturbance, mood disturbance, and anxiety; M25.512 Pain in left shoulder; E04.9 Nontoxic goiter, unspecified; Z79.82 Long term (current) use of aspirin; Z79.899 Other long term (current) drug therapy; Z88.8 Allergy status to other drugs, medicaments and biological substances; I51.7 Cardiomegaly
CPT/HCPCS: 36415; 71046; 71275; 80048; 80053; 80061; 83605; 83880; 84443; 84484; 85025; 85379; 93005; 93306; 96372; 96374; 99285; A9270-GY; G0378; J0360; J1644; J7512; Q9967

== ENCOUNTER 2018-03-01 17:56 | Emergency (ER) | payer MEDICARE ==
--- NOTE | 2018-03-01 19:08 | UC ---
Respiratory Complaint HPI - HPI Summary HPI Summary: cough, wheezy, sob for a few days---history of fluid retention is taking lasix 40 mg---has been gaining water weight- - History of Current Complaint Chief Complaint: UCRespiratory Stated Complaint: COUGH,WHEEZY Time Seen by Provider: 03/01/18 19:00 Hx Obtained From: Patient ?: No Onset/Duration: Gradual Onset, Lasting Days - 3, Still Present Timing: Constant Pain Intensity: 0 Pain Scale Used: 0-10 Numeric Character: Cough: Nonproductive Aggravating Factors: Exertion, Recumbent Position Alleviating Factors: Nothing Associated Signs And Symptoms: Positive: Dyspnea, Edema - Allergies/Home Medications Allergies/Adverse Reactions: Allergies Allergy/AdvReac Type Severity Reaction Status Date / Time TARUN Inhibitors Allergy Intermediate Coughing Verified 04/20/17 01:08 naproxen [From Naprosyn] Allergy Intermediate Rash Verified 04/20/17 01:08 Beta-Blockers Allergy Fatigue Verified 04/20/17 01:08 (Beta-Adrenergic Bloc gabapentin AdvReac Severe Agitation Verified 04/20/17 01:08 Home Medications: Home Medications Abatacept* [Orencia*] 1 each IV MONTHLY 03/01/18 [History Confirmed 03/01/18] Betahistine HCl 0.5 mg PO TID 03/01/18 [History Confirmed 03/01/18] PMH/Surg Hx/FS Hx/Imm Hx Previously Healthy: No - arthritis Endocrine History: Diabetes Cardiovascular History: Hypertension, Congestive Heart Failure Other History Of: Negative For: Anticoagulant Therapy - Surgical History Surgical History: Yes Surgery Procedure, Year, and Place: LT KNEE REPLACEMENT 28 YRS AGO. GALLBLADDER. LSP SURGERY L4-5 LAMINECTOMY 2009. BILATERAL CATARACTS - Family History Known Family History: Positive: Hypertension, Diabetes Negative: Cardiac Disease - Social History Occupation: Retired Lives: With Family Alcohol Use: None Substance Use Type: None Smoking Status (MU): Never Smoked Tobacco - Immunization History Most Recent Influenza Vaccination: 2017 Most Recent Tetanus Shot: unknown Most Recent Pneumonia Vaccination: up to date Review of Systems All Other Systems Reviewed And Are Negative: Yes Constitutional: Positive: Negative Skin: Positive: Negative Eyes: Positive: Negative ENT: Positive: Negative Respiratory: Positive: Shortness Of Breath, Cough Cardiovascular: Positive: Negative Gastrointestinal: Positive: Negative Genitourinary: Positive: Negative Motor: Positive: Negative Neurovascular: Positive: Negative Musculoskeletal: Positive: Negative Neurological: Positive: Negative Psychological: Positive: Negative Is Patient Immunocompromised?: No Physical Exam Triage Information Reviewed: Yes Appearance: No Pain Distress, Ill-Appearing, Obese Vital Signs: Initial Vital Signs Temp 98.5 F 03/01/18 18:07 Pulse 89 03/01/18 18:07 Resp 23 03/01/18 18:07 BP 143/70 03/01/18 18:07 Pulse Ox 98 03/01/18 18:07 Vital Signs Reviewed: Yes Eye Exam: Normal Eyes: Positive: Conjunctiva Clear ENT Exam: Normal ENT: Positive: Normal ENT inspection, Hearing grossly normal, Pharynx normal, TMs normal. Negative: Nasal congestion, Trismus, Muffled voice, Hoarse voice, Sinus tenderness Dental Exam: Normal Neck exam: Normal Neck: Positive: Supple, Nontender, No Lymphadenopathy Respiratory Exam: Normal Respiratory: Positive: Chest non-tender, No respiratory distress, No accessory muscle use, Wheezing - right lower, Other: - some RAI, unable to lay flat Cardiovascular Exam: Normal Cardiovascular: Positive: RRR, No Murmur, Pulses Normal, Brisk Capillary Refill Musculoskeletal Exam: Normal Musculoskeletal: Positive: Strength Intact, ROM Intact, No Edema Neurological Exam: Normal Neurological: Positive: Alert, Muscle Tone Normal Psychological Exam: Normal Skin Exam: Normal UC Diagnostic Evaluation - Laboratory O2 Sat by Pulse Oximetry: 98 - Radiology Radiology Interpretation Completed By: ED Physician - no infiltrate - EKG Cardiac Rate: NL Cardiac Rhythm: Sinus: Normal Ectopy: None ST Segment: Normal EKG Comparison: No Significant Change Respiratory Course/Dx - Course Course Of Treatment: to [facility] [place] with [employer] driving - Differential Dx/Diagnosis Differential Diagnosis/HQI/PQRI: CHF, Pulmonary Edema Provider Diagnosis: Diabetes type 2, controlled, Edema, Shortness of breath on exertion Discharge - Sign-Out/Discharge Documenting (check all that apply): Patient Departure All imaging exams completed and their final reports reviewed: Yes - Discharge Plan Condition: Guarded Disposition: HOME-RECOMMEND TO ED Patient Education Materials: Shortness of Breath (ED) Referrals: Derrick Wade MD [Primary Care Provider] - - Billing Disposition and Condition Condition: GUARDED Disposition: Home-Recommend to ED
[2018-03-01 20:16] VITALS: BP 191/89
== END 2018-03-01 20:21 | disposition home health service (06) ==
LOC: UCCORT 17:56
DX: E11.9 Type 2 diabetes mellitus without complications (principal); R60.9 Edema, unspecified; R06.00 Dyspnea, unspecified; Z88.8 Allergy status to other drugs, medicaments and biological substances
CPT/HCPCS: 71046; 81003; 93005; 99212; G0463

== ENCOUNTER 2018-03-01 21:17 | Emergency (ER) | payer MEDICARE ==
--- NOTE | 2018-03-01 21:55 | ED ---
Respiratory - HPI Summary HPI Summary: 82 year old female presents with intermittent cough and shortness of breath for the past 2 weeks. She denies any fevers. No sinus congestion or sore throat. No chest pain. No abdominal pain, nausea vomiting. She is not currently short of breath. shortness of breath occurs mostly when she walks around. She denies any history asthma or COPD. She states it feels like she has too much fluid on her. She does not check her weights daily. She denies any increase in swelling in her legs. She states has not increased how many pillows sleeps on. She denies any recent medication change. cough is a squeaky type cough. She has a history of high blood pressure and RA. she uses a walker at home. she is not on oxygen at home. is on lasix. had chest xray as urgent care that reviewed appears to be no pneumonia. - History of Current Complaint Chief Complaint: EDUpperRespComplaint Stated Complaint: SOB Time Seen by Provider: 03/01/18 21:38 Pain Intensity: 0 - Allergy/Home Medications Allergies/Adverse Reactions: Allergies Allergy/AdvReac Type Severity Reaction Status Date / Time TARUN Inhibitors Allergy Intermediate Coughing Verified 03/01/18 21:26 naproxen [From Naprosyn] Allergy Intermediate Rash Verified 03/01/18 21:26 Beta-Blockers Allergy Fatigue Verified 03/01/18 21:26 (Beta-Adrenergic Bloc gabapentin AdvReac Severe Agitation Verified 03/01/18 21:26 PMH/Surg Hx/FS Hx/Imm Hx Endocrine/Hematology History: Reports: Hx Diabetes Denies: Hx Anticoagulant Therapy Cardiovascular History: Reports: Hx Hypertension Denies: Hx Pacemaker/ICD Respiratory History: Denies: Hx Asthma, Hx Chronic Obstructive Pulmonary Disease (COPD) GI History: Reports: Hx Gastroesophageal Reflux Disease, Hx Hiatal Hernia History: Denies: Hx Renal Disease Musculoskeletal History: Reports: Hx Arthritis - RA, Hx Back Problems, Other Musculoskeletal History - spinal stenosis Sensory History: Reports: Hx Contacts or Glasses, Hx Hearing Aid, Hx Hearing Problem Denies: Hx Cataracts, Hx Eye Injury, Hx Eye Prosthesis, Hx Glaucoma, Hx Vision Problem Opthamlomology History: Reports: Hx Contacts or Glasses Denies: Hx Cataracts, Hx Eye Injury, Hx Eye Prosthesis, Hx Glaucoma, Hx Vision Problem Neurological History: Reports: Hx Nerve Disease - restless leg syndrome Denies: Hx Headaches, Hx Migraine, Hx Seizures Psychiatric History: Denies: Hx Panic Disorder - Cancer History Hx Chemotherapy: No Hx Radiation Therapy: No - Surgical History Surgery Procedure, Year, and Place: LT KNEE REPLACEMENT 28 YRS AGO. GALLBLADDER. LSP SURGERY L4-5 LAMINECTOMY 2010. BILATERAL CATARACTS Hx Anesthesia Reactions: No - Immunization History Date of Tetanus Vaccine: unk Date of Influenza Vaccine: unk Infectious Disease History: No Infectious Disease History: Denies: Hx Clostridium Difficile, Hx Hepatitis, Hx of Known/Suspected MRSA, Hx Shingles, Hx Tuberculosis, Traveled Outside the [place] in Last 30 Days - Family History Known Family History: Positive: Hypertension, Diabetes Negative: Cardiac Disease - Social History Alcohol Use: None Substance Use Type: Reports: None Smoking Status (MU): Never Smoked Tobacco Review of Systems Negative: Fever Negative: Chest Pain Positive: Shortness Of Breath, Cough Negative: Abdominal Pain All Other Systems Reviewed And Are Negative: Yes Physical Exam Triage Information Reviewed: Yes Vital Signs On Initial Exam: Initial Vitals Temp Pulse Resp BP Pulse Ox 98.5 F 89 16 191/80 98 03/01/18 21:21 03/01/18 21:21 03/01/18 21:21 03/01/18 21:21 03/01/18 21:21 Vital Signs Reviewed: Yes Appearance: Positive: Well-Appearing Skin: Positive: Warm, Dry Head/Face: Positive: Normal Head/Face Inspection Eyes: Positive: Normal, EOMI, ANTHONY, Conjunctiva Clear ENT: Positive: Normal ENT inspection, Pharynx normal, TMs normal Neck: Positive: Supple, Nontender, No Lymphadenopathy Respiratory/Lung Sounds: Positive: Clear to Auscultation, Breath Sounds Present Cardiovascular: Positive: Normal, RRR Abdomen Description: Positive: Nontender, Soft Bowel Sounds: Positive: Present Musculoskeletal: Positive: Normal Neurological: Positive: Normal Psychiatric: Positive: Normal Diagnostics - Vital Signs Vital Signs Temp Pulse Resp BP Pulse Ox 03/01/18 21:21 98.5 F 89 16 191/80 98 - Laboratory Result Diagrams: 03/01/18 22:02 03/01/18 22:02 Lab Statement: Any lab studies that have been ordered have been reviewed, and results considered in the medical decision making process. - EKG No standard instances Cardiac Rate: NL EKG Rhythm: Sinus Rhythm EKG Comparison: No Significant Change Summary of EKG Findings: sinus rhythm, similiar to previous Re-Evaluation - Re-Evaluation First Eval Re-Evaluation Time: 23:08 Change: Improved Comment: feels that albuterol helped, 02 stat when walking 96. Second Eval Re-Evaluation Time: 00:07 Comment: wants to go home. no SOB. lungs CTA. Disposition - Course Course Of Treatment: 82 year old female presents with intermittent cough and shortness of breath for the past 2 weeks. She denies any fevers. No sinus congestion or sore throat. No chest pain. No abdominal pain, nausea vomiting. She is not currently short of breath. shortness of breath occurs mostly when she walks around. She denies any history asthma or COPD. She states it feels like she has too much fluid on her. She does not check her weights daily. She denies any increase in swelling in her legs. She states has not increased how many pillows sleeps on. She denies any recent medication change. cough is a squeaky type cough. on exam lungs CTA. heart RRR. has edema noted to legs. bnp normal. wbc and crp normal. troponin .05 which is similiar to previous and second troponin stayed .05. gave breathing treatment which patient states helped. able to ambulate in ED without dropping stats and no SOB. gave night dose of htn meds and blood pressure was 156/80. discussed patient feels safe to go home. no SOB. will increase lasix. gave inhaler for cough. told to follow up with primary. patient understand and agrees with plan. - Differential Dx - Cardiopulmonary Differential Diagnoses - Cardiopulmonary: Bronchitis, CHF, Lower Resp Infection - Diagnoses Provider Diagnoses: Cough, Hypertension Discharge - Sign-Out/Discharge Documenting (check all that apply): Patient Departure - Discharge Plan Condition: Good Disposition: HOME Prescriptions: Furosemide TAB* [Lasix TAB*] 20 mg PO DAILY #7 tab Irbesartan [Avapro] 300 mg PO DAILY #7 tablet Patient Education Materials: Acute Cough (ED) Referrals: Derrick Wade MD [Primary Care Provider] - Additional Instructions: add on 20mg of lasix to the 40mg you already take use inhaler every 6 hours as needed for cough Follow up with primary within 5 days Return to ED if develop any new or worsening symptoms - Billing Disposition and Condition Condition: GOOD Disposition: Home
[2018-03-01] MEDS ORDERED: Albuterol 2.5 MG/3 ML NEB.SOL* (0.083%) INH ONE (21:56)
[2018-03-01 22:13] LABS: ABS Basophils 0 10^3/ul (0-0.2); ABS Eosinophils 0.1 10^3/ul (0-0.6); ABS Lymphocytes 1.4 10^3/ul (1.0-4.8); ABS Monocytes 0.4 10^3/ul (0-0.8); ABS Neutrophils 5.4 10^3/ul (1.5-7.7); ABS Nucleated RBC 0 10^3/ul; Eosinophil % 1.2 %; Hematocrit 34 % (35-47); Hemoglobin 11.5 g/dl (12.0-16.0); Lymphocyte % 18.6 %; Mean Corpuscular HGB Conc 34 g/dl (31-36); Mean Corpuscular Hemoglobin 33 pg (27-31); Mean Corpuscular Volume 98 fL (80-97); Mean Platelet Volume 7.3 fL (7.4-10.4); Nucleated Red Blood Cells % 0.1; Platelet Count 316 10^3/ul (150-450); Red Blood Count 3.46 10^6/ul (4.00-5.40); Red Cell Distribution Width 14 % (10.5-15); White Blood Count 7.3 10^3/ul (3.5-10.8)
[2018-03-01 22:29] LABS: Albumin/Globulin Ratio 1.4 (1-3); BUN/Creatinine Ratio 12.9 (8-20); C Reactive Protein 1.46 mg/L (<8.01); Calcium 9.3 mg/dL (8.6-10.3); EGFR Non-African American 79.7 (>60); Globulin 2.8 g/dL (2-4); Potassium 3.9 mmol/L (3.5-5.0); Total Bilirubin 0.4 mg/dL (0.2-1.0); Total Protein 6.8 g/dL (6.4-8.9)
[2018-03-01 22:37] LABS: Urine Appearance Clear; Urine Bilirubin Negative (Negative); Urine Blood Negative (Negative); Urine Color Straw; Urine Glucose Negative (Negative); Urine Ketones Negative (Negative); Urine Nitrite Negative (Negative); Urine Protein Negative (Negative); Urine Specific Gravity 1.008 (1.010-1.030); Urine Urobilinogen Negative (Negative)
[2018-03-01] MEDS ORDERED: amLODIPine TAB* 5 MG PO ONE (23:00)
[2018-03-02] MEDS ORDERED: A lbuterol Hfa (PREPAK) 1 MDI - ED TAKE HOME DISPENSING ONLY INHH ONE (00:03)
[2018-03-02 00:35] VITALS: BP 162/79
== END 2018-03-02 00:35 | disposition home or self-care (01) ==
LOC: ED 21:17
DX: I10 Essential (primary) hypertension (principal); R05 Cough; R06.02 Shortness of breath
CPT/HCPCS: 36415; 80053; 81003; 83605; 83880; 84484; 85025; 85379; 86140; 87040; 93005; 99283; A9270-GY

== ENCOUNTER 2018-03-12 17:44 | Emergency (ER) | payer MEDICARE ==
[2018-03-12 18:45] VITALS: BP 197/85
[2018-03-12] MEDS ORDERED: DOXYcycline CAP(*) 100 MG PO ONE (19:00)
[2018-03-12] MEDS ORDERED: Tetan/Diph/Pertus SYR(Tdap)* 0.5 ML SYR(BOOSTRIX) use SYR IM ONE (19:00)
--- NOTE | 2018-03-12 19:10 | UC ---
Bite Injury/Animal HPI - HPI Summary HPI Summary: Patient is an 82-year-old female 4-5 days status post either a cat scratch or cat bite to the dorsum of her right hand. He is playing with her cat and it lunged at her. She is not a diabetic. Her last tetanus shot was greater than 10 years ago. He has not been febrile. She is on methotrexate for rheumatoid arthritis. - History of Current Complaint Chief Complaint: UCS[place] Stated Complaint: RT HAND CAT SCRATCH Time Seen by Provider: 03/12/18 18:53 Hx Obtained From: Patient Severity Initially: Moderate Pain Intensity: 6 Pain Scale Used: 0-10 Numeric Onset/Duration: Gradual Onset, Lasting Hours Type of Bite: Animal Has Animal Been Immunized?: Yes Character: Abrasion/Laceration Aggravating Factor(s): Nothing Alleviating Factor(s): Nothing Associated Signs And Symptoms: Positive: Erythema, Swelling Hx of Bite: Provoked by: Animal Available for Observation: Yes Body - Head: 1 - red/swollen/two heal abrasions - Allergies/Home Medications Allergies/Adverse Reactions: Allergies Allergy/AdvReac Type Severity Reaction Status Date / Time TARUN Inhibitors Allergy Intermediate Coughing Verified 03/12/18 18:34 naproxen [From Naprosyn] Allergy Intermediate Rash Verified 03/12/18 18:34 Beta-Blockers Allergy Fatigue Verified 03/12/18 18:34 (Beta-Adrenergic Bloc gabapentin AdvReac Severe Agitation Verified 03/12/18 18:34 PMH/Surg Hx/FS Hx/Imm Hx Previously Healthy: Yes Endocrine History: Diabetes Cardiovascular History: Hypertension Other History Of: Negative For: Anticoagulant Therapy - Surgical History Surgical History: Yes Surgery Procedure, Year, and Place: LT KNEE REPLACEMENT 28 YRS AGO. GALLBLADDER. LSP SURGERY L4-5 LAMINECTOMY 2010. BILATERAL CATARACTS - Family History Known Family History: Positive: Hypertension, Diabetes Negative: Cardiac Disease - Social History Alcohol Use: None Substance Use Type: Prescribed Substance Use Comment - Amount & Last Used: percocet at HS Smoking Status (MU): Never Smoked Tobacco - Immunization History Most Recent Influenza Vaccination: 2017 Most Recent Tetanus Shot: unknown Most Recent Pneumonia Vaccination: up to date Review of Systems All Other Systems Reviewed And Are Negative: Yes Constitutional: Positive: Negative Skin: Positive: Negative Eyes: Positive: Negative ENT: Positive: Negative Respiratory: Positive: Negative Cardiovascular: Positive: Negative Gastrointestinal: Positive: Negative Genitourinary: Positive: Negative Motor: Positive: Negative Neurovascular: Positive: Negative Musculoskeletal: Positive: Edema Neurological: Positive: Negative Psychological: Positive: Negative Physical Exam Triage Information Reviewed: Yes Appearance: Well-Appearing, No Pain Distress, Well-Nourished Vital Signs: Initial Vital Signs Temp 98.2 F 03/12/18 18:40 Pulse 81 03/12/18 18:40 Resp 18 03/12/18 18:40 BP 197/85 03/12/18 18:40 Pulse Ox 98 03/12/18 18:40 Vital Signs Reviewed: Yes Eyes: Positive: Conjunctiva Clear ENT: Negative: Hearing grossly normal, Nasal congestion, Nasal drainage, Trismus , Muffled voice, Hoarse voice Neck: Positive: Supple Respiratory: Positive: Lungs clear, Normal breath sounds, No respiratory distress, No accessory muscle use Cardiovascular: Positive: RRR, No Murmur Musculoskeletal: Positive: Edema @ - right dorsal hand edema/ertheyma Psychological Exam: Normal Bite Injury Course/Dx - Course Course Of Treatment: tetanus updated - Differential Dx/Diagnosis Provider Diagnosis: Cellulitis of right hand Discharge - Sign-Out/Discharge Documenting (check all that apply): Patient Departure All imaging exams completed and their final reports reviewed: No Studies - Discharge Plan Condition: Stable Disposition: HOME Prescriptions: DOXYcycline CAP(*) [DOXYcycline 100MG CAP(*)] 100 mg PO BID #12 cap Patient Education Materials: Cellulitis (ED) Referrals: Derrick Wade MD [Primary Care Provider] - If Needed Additional Instructions: warm compresses elevate recheck in 2-3 days if not improved - Billing Disposition and Condition Condition: STABLE Disposition: Home
== END 2018-03-12 19:24 | disposition home or self-care (01) ==
LOC: UCCORT 17:44
DX: W55.03XA Scratched by cat, initial encounter (principal); Y93.89 Activity, other specified; Y92.009 Unspecified place in unspecified non-institutional (private) residence as the place of occurrence of the external cause; L03.113 Cellulitis of right upper limb; Z88.6 Allergy status to analgesic agent; Z88.8 Allergy status to other drugs, medicaments and biological substances; I10 Essential (primary) hypertension
CPT/HCPCS: 90471; 90715; 99212; A9270-GY; G0463

== ENCOUNTER 2022-04-13 18:55 | Inpatient (IN) ==
[2022-04-13 22:58] LABS: ABS Basophils 0.1 10^3/ul (0-0.2); ABS Lymphocytes 0.5 10^3/ul (1.0-4.8); ABS Monocytes 0.8 10^3/ul (0-0.8); ABS Neutrophils 8.6 10^3/ul (1.5-7.7); Hematocrit 30 % (35-47); Hemoglobin 9.7 g/dL (12.0-16.0); Lymphocyte % 5.4 %; Mean Corpuscular HGB Conc 32 g/dL (31-36); Mean Corpuscular Hemoglobin 30 pg (27-31); Mean Corpuscular Volume 93 fL (80-97); Mean Platelet Volume 9.2 fL (7.4-10.4); Platelet Count 204 10^3/uL (150-450); Red Blood Count 3.24 10^6 /uL (3.70-4.87); Red Cell Distribution Width 15 % (10-15)
[2022-04-13 23:27] LABS: Albumin 3.7 g/dL (3.2-5.2); Albumin/Globulin Ratio 1.9 (1-3); Calcium 8.3 mg/dL (8.6-10.3); Creatinine, Serum 1.18 mg/dL (0.51-0.95); Magnesium 1.9 mg/dL (1.9-2.7); Potassium 3.5 mmol/L (3.5-5.0); Total Bilirubin 0.6 mg/dL (0.2-1.0); Total Protein 5.7 g/dL (6.4-8.9); eGFR CKD-EPI 44.2 (>60)
[2022-04-13] MEDS: Carbidopa/Levodop 25/100 MG TAB PO SCH (23:29)
[2022-04-13 23:40] LABS: Urine Appearance Turbid; Urine Bilirubin Negative (Negative); Urine Blood Negative (Negative); Urine Color Yellow; Urine Glucose Negative (Negative); Urine Ketones Negative (Negative); Urine Nitrite Positive (Negative); Urine Protein 2+(100 mg/dL) (Negative); Urine Specific Gravity 1.013 (1.002-1.030); Urine Urobilinogen Negative (Negative)
[2022-04-13 23:42] LABS: TSH Ultra Thyroid Stim Horm 1.98 mcIU/mL (0.34-5.60)
[2022-04-13 23:44] LABS: Urine Bacteria 2+ (Absent); Urine Red Blood Cell 3+(>10/hpf) (Absent); Urine Squamous Epithelial Cell Present (Absent); Urine White Blood Cell 3+(>20/hpf) (Absent)
[2022-04-14] MEDS ORDERED: cefTRIAXone 1 gm/50 mL D5W 1 GM/50 ML BAG IV ONE (00:31)
[2022-04-14 01:38] LABS: C Reactive Protein 52.08 mg/L (<8.01)
[2022-04-14] MEDS ORDERED: Acetaminophen IV 1 GM/100ML 1,000 MG/100 ML BAG IV PRN (02:48)
[2022-04-14] MEDS ORDERED: Enoxaparin 30 MG/0.3 ML SYR SUBCUT SCH (06:00)
[2022-04-14 06:18] LABS: ABS Lymphocytes 0.5 10^3/ul (1.0-4.8); ABS Monocytes 0.5 10^3/ul (0-0.8); ABS Neutrophils 7.2 10^3/ul (1.5-7.7); Eosinophil % 0.1 %; Hematocrit 28 % (35-47); Hemoglobin 9.4 g/dL (12.0-16.0); Lymphocyte % 5.5 %; Mean Corpuscular HGB Conc 34 g/dL (31-36); Mean Corpuscular Hemoglobin 31 pg (27-31); Mean Corpuscular Volume 91 fL (80-97); Mean Platelet Volume 8.9 fL (7.4-10.4); Platelet Count 170 10^3/uL (150-450); Red Blood Count 3.09 10^6 /uL (3.70-4.87); Red Cell Distribution Width 14 % (10-15); White Blood Count 8.2 10^3/uL (3.5-10.8)
[2022-04-14 06:51] LABS: Calcium 8.3 mg/dL (8.6-10.3); Creatinine, Serum 0.95 mg/dL (0.51-0.95); Potassium 3.1 mmol/L (3.5-5.0); eGFR CKD-EPI 57.3 (>60)
[2022-04-14] MEDS ORDERED: Magnesium Sulfate 2 gm BAG 2 GM/50 ML BAG IVPB ONE (07:51)
[2022-04-14] MEDS ORDERED: Leflunomide 20 MG TABLET (NF) PO SCH (09:00)
[2022-04-14] MEDS: Potassium Chlor 20 meq TAB.ER PO SCH ×2 (10:52→13:57)
[2022-04-14] MEDS: Enoxaparin 30 MG/0.3 ML SYR SUBCUT SCH (10:52)
[2022-04-14 16:52] LABS: Magnesium 1.9 mg/dL (1.9-2.7)
[2022-04-14] MEDS: Carbidopa/Levodop 25/100 MG TAB PO SCH (20:29)
[2022-04-14] MEDS: cefTRIAXone 1 gm/50 mL D5W 1 GM/50 ML BAG IV SCH (22:16)
[2022-04-15 07:08] LABS: ABS Lymphocytes 0.5 10^3/ul (1.0-4.8); ABS Monocytes 0.4 10^3/ul (0-0.8); ABS Neutrophils 4.2 10^3/ul (1.5-7.7); Eosinophil % 0.3 %; Hematocrit 29 % (35-47); Hemoglobin 9.4 g/dL (12.0-16.0); Lymphocyte % 9.3 %; Mean Corpuscular HGB Conc 33 g/dL (31-36); Mean Corpuscular Hemoglobin 30 pg (27-31); Mean Corpuscular Volume 92 fL (80-97); Mean Platelet Volume 8.8 fL (7.4-10.4); Platelet Count 174 10^3/uL (150-450); Red Blood Count 3.15 10^6 /uL (3.70-4.87); Red Cell Distribution Width 14 % (10-15); White Blood Count 5.2 10^3/uL (3.5-10.8)
[2022-04-15 08:06] LABS: Calcium 8.2 mg/dL (8.6-10.3); Creatinine, Serum 0.92 mg/dL (0.51-0.95); Magnesium 2.5 mg/dL (1.9-2.7); Potassium 4.4 mmol/L (3.5-5.0); eGFR CKD-EPI 59.5 (>60)
[2022-04-15] MEDS: Enoxaparin 30 MG/0.3 ML SYR SUBCUT SCH (10:49)
[2022-04-15] MEDS: CMC:Leflunomide 10 mg TAB (NF) PO SCH (10:49)
[2022-04-15] MEDS: Carbidopa/Levodop 25/100 MG TAB PO SCH (19:56)
[2022-04-15] MEDS: cefTRIAXone 1 gm/50 mL D5W 1 GM/50 ML BAG IV SCH (20:15)
[2022-04-16] MEDS: Enoxaparin 30 MG/0.3 ML SYR SUBCUT SCH (08:23)
[2022-04-16] MEDS: CMC:Leflunomide 10 mg TAB (NF) PO SCH (09:25)
[2022-04-16] MEDS: Carbidopa/Levodop 25/100 MG TAB PO SCH (19:53)
[2022-04-17] MEDS: CMC:Leflunomide 10 mg TAB (NF) PO SCH (10:21)
[2022-04-17] MEDS: Enoxaparin 30 MG/0.3 ML SYR SUBCUT SCH (10:21)
[2022-04-17] MEDS: Carbidopa/Levodop 25/100 MG TAB PO SCH (20:04)
[2022-04-18 09:28] LABS: Calcium 8.4 mg/dL (8.6-10.3); Creatinine, Serum 0.75 mg/dL (0.51-0.95); Potassium 4.4 mmol/L (3.5-5.0); eGFR CKD-EPI 76.1 (>60)
[2022-04-18] MEDS: Enoxaparin 30 MG/0.3 ML SYR SUBCUT SCH (12:59)
[2022-04-18] MEDS: CMC:Leflunomide 10 mg TAB (NF) PO SCH (12:59)
[2022-04-18] MEDS: Carbidopa/Levodop 25/100 MG TAB PO SCH (19:39)
[2022-04-19] MEDS: Enoxaparin 30 MG/0.3 ML SYR SUBCUT SCH (09:46)
[2022-04-19] MEDS: CMC:Leflunomide 10 mg TAB (NF) PO SCH (09:48)
[2022-04-19] MEDS: Carbidopa/Levodop 25/100 MG TAB PO SCH (19:57)
[2022-04-20 08:38] VITALS: BP 150/80
[2022-04-20] MEDS: Enoxaparin 30 MG/0.3 ML SYR SUBCUT SCH (08:40)
[2022-04-20] MEDS: CMC:Leflunomide 10 mg TAB (NF) PO SCH (08:40)
[2022-04-20 09:50] LABS: Rapid COVID-19 Molecular Undetected (Undetected)
== END 2022-04-20 11:21 | DRG 690 ==
LOC: EDHOLD 18:55 → ED 18:55 → SUATTDRO 04-14 00:46 → MED 04-14 04:14 → SUATTDRO 04-15 10:20
PROVIDERS: ADMIT Internal Medicine; ATTEND Internal Medicine Hematology & Oncology